=== PATIENT | male | born 1945 | race Caucasian/White ===

== ENCOUNTER 2019-12-23 08:55 | Outpatient (CLI) | payer MEDICARE, OTHER, SELFPAY ==
--- NOTE | ~2019-12-23 | CT_ITS ---
EXAMINATION: CT chest w con DATE: 12/23/2019 09:32 INDICATION: Non-small cell lung cancer TECHNIQUE: Transaxial computed tomographic images of the chest were obtained after the administration of 75 cc of Omnipaque 350 intravenous contrast. The dose-length product (DLP) was 351.92 mGy-cm. Ite rative reconstruction was used. COMPARISON: 08/12/2019, 05/27/2019 FINDINGS: There is moderate emphysema. There is a stable 2.0 x 0.8 cm right upper lobe nodule. A stab le 10 mm nodule is present in the medial aspect of the left upper lobe on image 34. There has been in terval enlargement of three left lower lobe nodules. For instance a 7 mm subpleural nodule in the med ial aspect of the left lower lobe previously measured 4 mm. There is a new 11 mm nodule of the left l ower lobe on image 60. A new 8 mm subpleural nodule of the right lower lobe on image 69 appears to de monstrate central cavitation. There is a 2.8 x 2.4 cm pleural-based nodule of the medial right lower lobe which is increased in size and appears to involve the right hemidiaphragm (image 112). A left barbosa bclavian Port-A-Cath ends with its tip at the distal superior vena cava. The heart size is normal. Th e heart size is normal. Mild mediastinal and bilateral hilar lymphadenopathy is stable. There are jett nges of coronary artery bypass grafting. The gallbladder is surgically absent. There is mild thoracic spondylosis. IMPRESSION: 1. Progression of metastatic disease as evidenced by new and enlarging bilateral pulmonary nodules. 2. Stable right upper lobe nodule, consistent with primary bronchogenic carcinoma. Reviewed, dictated and finalized at location A. IMPRESSION: 1. Progression of metastatic disease as evidenced by new and enlarging bilatera l pulmonary nodules. 2. Stable right upper lobe nodule, consistent with primary bronchogenic carcino ma.
[2019-12-23 09:24] LABS: Estimated Glomerular Filt Rate > 60
== END 2019-12-23 08:56 | disposition home or self-care (01) ==
PROVIDERS: PCP Internal Medicine; Visit Provider Internal Medicine Hematology & Oncology
DX: C34.90 Malignant neoplasm of unspecified part of unspecified bronchus or lung (principal)
CPT/HCPCS: 36415; 71260; Q9967

== ENCOUNTER 2020-01-02 07:28 | Outpatient (CLI) | payer MEDICARE, OTHER, SELFPAY ==
--- NOTE | ~2020-01-02 | PE_ITS ---
EXAMINATION: PET skull to mid thigh DATE: 01/02/2020 10:04 INDICATION: Malignant lung neoplasm of the right upper lobe. TECHNIQUE: Blood glucose level was 116 mg/dL. 116 mCi of 18-fluorodeoxyglucose (18-FDG) was administe red i.v. Low dose computed tomography (CT) images were acquired from the base of the brain to the pro ximal thighs for attenuation correction and anatomic localization. Positron emission tomography (PET) images were acquired in the same distribution beginning 71 minutes after injection. Images including fused PET/CT images were reconstructed in axial, coronal, and sagittal planes. Automated exposure co ntrol technique was employed. The dose-length product was 975.03mGy-cm. COMPARISON: Chest CT dated 12/23/2019 and PET/CT dated 04/26/2018 FINDINGS: Head/neck: There is symmetric increased activity in the pterygoid laryngeal muscles without CT correlate, likely physiologic. No pathologically enlarged cervical lymphadenopathy or suspicious foci of increased FDG uptake in the visualized head or neck. Chest: Left subclavian central venous port catheter with distal tip at the high right atrium. Postoperative change of prior median sternotomy and coronary artery bypass grafting. 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 Heart siz e is normal. No pericardial effusion. Moderate emphysema. No interval change in size or configuration of an irregular 2.0 x 0.9 cm mass with spiculated margins at the posterolateral periphery of the rig ht upper lobe consistent with treated primary bronchogenic carcinoma. There is no significant FDG upt yoshi associated with the nodule although there is mild nonfocal increased FDG uptake along the overlyi ng pleura which demonstrates chronic mild thickening which may be related to prior radiation treatmen t. 2.5 x 2.8 cm FDG avid mass at the right azygos esophageal recess which appears to invade the diaphrag m with maximal SUV of 5.5. There are few smaller bilateral FDG avid nodules are new since the prior s tudy. The largest is a 1.2 cm FDG avid nodule in the superior segment of the left lower lobe with max imal SUV of 2.4. Additional 9 mm pleural-based nodule in the left lower lobe with maximal SUV of 1.1 and 10 mm Mixed solid and cavitary nodule in the right lower lobe with maximal SUV of 3.3. Interval decrease in the degree of now minimal increased FDG uptake associated with still normal-sized mediastinal and bi lateral hilar lymph nodes. At the thoracic hiatus there is a new 2.4 x 1.1 cm right retrocrural lymph node with maximal SUV of 3.7. Abdomen/pelvis/proximal thighs: Cholecystectomy clips the gallbladder fossa. Physiologic renal accumulation and excretion of FDG acti vity in the kidneys, bladder and along portions of ureters. Hepatic and splenic calcified consistent with old granulomatous disease. Normal degree and heterogenous pattern of increased uptake throughout the liver without radiologic correlate or dominant FDG avid lesion. The pancreas, spleen and bilater al adrenal glands are normal. Mild uptake scattered throughout the bowels without radiologic correlat e, also likely physiologic. No other abnormal foci of increased FDG uptake or pathologically enlarged lymphadenopathy in the abdomen, pelvis or proximal thighs. Musculoskeletal: There is diffuse mild increased muscular activity throughout the left upper extremity most prominent at the left hand without radiologic correlate and likely physiologic. No suspicious lytic, blastic or FDG avid bone lesions. IMPRESSION: 1. FDG avid nodules at the bilateral lower lobes. Largest measuring 2.5 x 2.8 cm the right azygos eso phageal recess which appears to invade the diaphragm concerning for metastatic disease. 2. Mild FDG uptake with a new 2.4 x 1.1 cm right retrocrural lymph node which is also likely metastat ic.
[2020-01-02 07:55] LABS: Glucose Point of Care 116 (65-105)
== END 2020-01-02 07:29 | disposition home or self-care (01) ==
PROVIDERS: PCP Internal Medicine; Visit Provider Internal Medicine Hematology & Oncology
DX: C34.11 Malignant neoplasm of upper lobe, right bronchus or lung (principal); R59.0 Localized enlarged lymph nodes
CPT/HCPCS: 78815; A9552

== ENCOUNTER 2020-05-04 08:56 | Outpatient (CLI) | payer MEDICARE, OTHER, SELFPAY ==
--- NOTE | ~2020-05-04 | CT_ITS ---
EXAMINATION: CT chest w con DATE: 05/04/2020 09:38 INDICATION: Non-small cell right upper lobe lung cancer; restaging TECHNIQUE: Computed tomography (CT) of the chest was performed with 75 cc Omnipaque 350 intravenous c ontrast. Automated exposure control and iterative reconstruction technique were employed. Exam dose: 312.90 mGy-cm total exam DLP. COMPARISON: 01/02/2020 PET/CT scan 05/27/2019 CT chest FINDINGS: Since 05/19/2019 there is patchy soft tissue density in the lower aspect of the lingula and anterior and lateral basilar left lower lobe. COPD. Stable discoid scarring posterolateral right upper lung.. There is stable scarring in the anterior le ft upper lobe and another area of stable scarring in the anteromedial lingula. No interval pulmonary mass lesion is evident otherwise. No interval hilar or mediastinal mass lesion or lymphadenopathy. Normal heart size. No pericardial or pleural effusion. Normal morphology of the adrenal glands. Status post cholecystectomy. Status post sternotomy. 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 Mild chronic anterior wedge compression fracture deformity of L1. IMPRESSION: New patchy infiltrate at base of the lingula and left lower lobe COPD Chronic bilateral upper lobe and lingular scarring Reviewed, dictated and finalized at [facility]. Reviewed, dictated and finalized at location A.
[2020-05-04 09:42] LABS: Estimated Glomerular Filt Rate > 60
== END 2020-05-04 08:57 | disposition home or self-care (01) ==
PROVIDERS: PCP Internal Medicine; Visit Provider Internal Medicine Hematology & Oncology
DX: C34.91 Malignant neoplasm of unspecified part of right bronchus or lung (principal); R91.8 Other nonspecific abnormal finding of lung field; J44.9 Chronic obstructive pulmonary disease, unspecified
CPT/HCPCS: 71260; Q9967

== ENCOUNTER 2020-06-20 10:51 | Outpatient (CLI) | payer MEDICARE, OTHER, SELFPAY ==
--- NOTE | ~2020-06-20 | XR_ITS ---
XR chest 2V 06/20/2020 11:12 Indication: Non-small cell carcinoma of the right lung Procedure: PA and lateral views of the chest Comparison: 12/31/2017 Findings: There is residual scarring of the right upper lobe with near complete resolution of right u pper lobe mass since prior study. Portacatheter tip in the SVC. Heart size normal. The lungs are hype rinflated which is consistent with, but not diagnostic of chronic obstructive pulmonary disease. Ther e is chronic left basilar atelectasis/scarring. No focal air space disease, pulmonary edema, pleural effusion or suspected pneumothorax. Impression: 1: No acute cardiopulmonary disease. 2: Near complete resolution of right upper lobe mass with residual scarring. Reviewed, dictated and finalized at location B. Impression: 1: No acute cardiopulmonary disease. 2: Near complete resolution of right upper lobe mass with residual scarring.
== END 2020-06-20 10:52 | disposition home or self-care (01) ==
PROVIDERS: PCP Internal Medicine; Visit Provider Nurse Practitioner Adult Health
DX: C34.91 Malignant neoplasm of unspecified part of right bronchus or lung (principal)
CPT/HCPCS: 71046

== ENCOUNTER 2020-08-17 09:15 | Outpatient (CLI) | payer MEDICARE, SELFPAY ==
--- NOTE | ~2020-08-17 | CT_ITS ---
EXAMINATION: CT chest w con EXAM DATE: 08/17/2020 10:06 INDICATION: Non-small cell lung cancer, right side. TECHNIQUE: Spiral CT of the chest following intravenous injection of 75 mL Omnipaque 350. Axial, cor onal and sagittal images were reviewed. Coronal maximum intensity pixel images of chest reviewed. T he dose-length product (DLP) for this examination was 325.25 mGy-cm. The exposure was tailored accor ding to patient size (auto mA exposure control), and iterative reconstruction (ASIR) was used as percy tional dose reduction technique. Comparison is made to prior examination from 05/04/2020. FINDINGS: There is a left-sided Chemo-Port. Stable appearance to ill-defined soft tissue insinuating within the both anna, probably treated malignancy. Subcarinal lymph node or nodes with calcification s measuring 3.5 x 1.2 cm unchanged. No other enlarged mediastinal lymph nodes. There is moderate to s evere emphysema. Right upper lobe opacity consistent with scarring is unchanged. Previously seen ling ular pneumonia has resolved with subsegmental atelectasis remaining. There is developing soft tissue mass with heterogeneous low density which appears to be involving the right hemidiaphragm, right crux and right lower lobe posteromedial segment, measuring 3.2 cm in diam eter. Another right lower lobe nodule just above the diaphragm measuring 1.9 x 1.2 cm. Spiculated lef t lower lobe nodules measuring 2.0 x 1.4 cm and 1.8 x 1.0 cm. Several other new subcentimeter bilater al pulmonary nodules. Interval development of left liver lobe metastatic lesion measuring 2.0 cm. Cholecystectomy clips. Th ere are no pleural or pericardial effusions. Tracheobronchial tree is patent. There is no pneumot horax. Heart normal in size. There is mild coronary arterial calcification, arterial sclerosis. There is thoracic spondylosis without osteoblastic or osteolytic lesions identified. IMPRESSION: 1. Stable mediastinal, hilar findings consistent with treated malignancy. 2. Development of several bilateral metastatic pulmonary nodules, a right crux centered metastatic l esion, and left liver lobe metastatic lesion. Reviewed, dictated and finalized at location A. 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 Stable mediastinal, hilar findings consistent with treated malignancy. 2. Development of several bilateral metastatic pulmonary nodules, a right crux centered metastatic lesion, and left liver lobe metastatic lesion.
[2020-08-17 09:56] LABS: Estimated Glomerular Filt Rate 59
== END 2020-08-17 09:16 | disposition home or self-care (01) ==
PROVIDERS: PCP Internal Medicine; Visit Provider Internal Medicine Hematology & Oncology
DX: C34.91 Malignant neoplasm of unspecified part of right bronchus or lung (principal); C78.7 Secondary malignant neoplasm of liver and intrahepatic bile duct; C78.02 Secondary malignant neoplasm of left lung; C78.01 Secondary malignant neoplasm of right lung
CPT/HCPCS: 71260; Q9967

== ENCOUNTER 2020-08-29 07:20 | Outpatient (CLI) | payer MEDICARE, SELFPAY ==
--- NOTE | ~2020-08-29 | PE_ITS ---
EXAMINATION: PET skull to mid thigh DATE: 08/29/2020 09:41 INDICATION: Malignant neoplasm of the right upper lobe of the lung TECHNIQUE: Blood glucose level was 92 mg/dL. 11.08 mCi of 18-fluorodeoxyglucose (18-FDG) was administ ered i.v. Low dose computed tomography (CT) images were acquired from the base of the brain to the pr oximal thighs for attenuation correction and anatomic localization. Positron emission tomography (PET ) images were acquired in the same distribution beginning 59 minutes after injection. The dose-length product (DLP) was 826.41 mGy-cm. COMPARISON: 08/17/2020, 01/02/2020 FINDINGS: Head/neck: FDG uptake in the vocal cords and oral cavity without suspicious CT correlate is likely ph ysiologic. No abnormal FDG uptake is identified. Chest: There is severe emphysema. There are several pulmonary nodules which are new or enlarging sinc e the comparison PET/CT and demonstrate abnormal FDG uptake. For instance a 1.6 cm nodule of the left lower lobe demonstrates FDG uptake with an SUV max of 4.8. A 1.9 cm nodule along the medial surface of the right lower lobe demonstrates an SUV max of 5.9. A 3.4 cm mass of the medial right lower lobe has enlarged and invades the right hemidiaphragm. This demonstrates abnormal FDG uptake with an SUV m ax of 10.2. There is bilateral hilar and subcarinal lymphadenopathy with abnormal FDG uptake. A 1.2 x 0.4 cm pleural-based nodule of the right upper lobe demonstrates abnormal FDG uptake with an SUV max of 4.1. There is no pleural effusion or pneumothorax. Areas of scarring without associated FDG uptak e are present in the upper lobes. The heart size is normal. Abdomen/pelvis/proximal thighs: There is a 2.5 cm mass in liver segment II with abnormal FDG uptake a nd SUV max of 11.8. The gallbladder is surgically absent. The spleen, pancreas, and adrenal glands ar e normal. The kidneys are unremarkable. Physiologic FDG activity is present in the bowel and urinary tract. No pathologically enlarged abdominal or pelvic lymph nodes are identified. There is calcified atherosclerosis of the aorta and many of the other arteries. There is no free intraperitoneal gas or evidence of bowel obstruction. Musculoskeletal: No abnormal FDG uptake is identified. IMPRESSION: 1. Progression of disease as evidenced by enlarging right lower lobe mass invading the right hemidiap hragm, multiple enlarging lung nodules with abnormal FDG uptake, new liver mass with FDG uptake, bila teral hilar and subcarinal lymphadenopathy. Reviewed, dictated and finalized at location A. 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 Progression of disease as evidenced by enlarging right lower lobe mass invad ing the right hemidiaphragm, multiple enlarging lung nodules with abnormal FDG uptake, new liver mass with FDG uptake, bilateral hilar and subcarinal lymphade nopathy.
[2020-08-29 07:58] LABS: Glucose Point of Care 92 (65-105)
== END 2020-08-29 07:21 | disposition home or self-care (01) ==
LOC: ANHIMG 07:24
PROVIDERS: PCP Internal Medicine; Visit Provider Internal Medicine Hematology & Oncology
DX: C34.11 Malignant neoplasm of upper lobe, right bronchus or lung (principal)
CPT/HCPCS: 78815; A9552

== ENCOUNTER 2020-10-19 07:19 | Emergency (ER) | payer MEDICARE, SELFPAY ==
[2020-10-19] VITALS (10 sets, daily range): BP systolic 106–147; BP diastolic 61–85; PULSE 89–107; RESP 20–23; TEMP 36.1; O2SAT 88–100
--- NOTE | ~2020-10-19 | XR_ITS ---
EXAMINATION: XR chest 2V DATE: 10/19/2020 08:12 INDICATION: Shortness of breath TECHNIQUE: PA and lateral views of the chest are obtained. COMPARISON: 08/17/2020, 06/20/2020 FINDINGS: There are bilateral perihilar and midlung zone opacities. Minimal bibasilar opacities are a lso present. There are small pleural effusions. No pneumothorax is identified. A left subclavian Port -A-Cath ends with its tip in the distal superior vena cava. Median sternotomy wires and mediastinal s urgical clips are seen, likely from prior coronary artery bypass grafting. There is mild thoracic spo ndylosis. IMPRESSION: 1. Perihilar and bibasilar opacities, consistent with pneumonia and/or pulmonary edema and/or atelect asis. 2. Small pleural effusions. Reviewed, dictated and finalized at location A. SUPERVISOR GROUNDS AND LANDSCAPE IMPRESSION: 1. Perihilar and bibasilar opacities, consistent with pneumonia and/or pulmonar y edema and/or atelectasis. 2. Small pleural effusions.
--- NOTE | ~2020-10-19 | CT_ITS ---
EXAMINATION: CTA chest PE protocol DATE: 10/19/2020 10:25 INDICATION: Shortness of breath TECHNIQUE: Computed tomography angiography (CTA) of the chest was performed with 100 mL Omnipaque-350 intravenous contrast timed to evaluate the pulmonary arteries. Coronal maximum intensity projection 3D-reconstructions were created by the technologist. The dose-length product (DLP) was 454.73 mGy-cm. Automated exposure control and iterative reconstruction technique were employed. COMPARISON: 08/17/2020 FINDINGS: The pulmonary arteries are well-opacified. No pulmonary embolism is identified. There are s mall pleural effusions, left greater than right. There is severe emphysema. There are unchanged mike ediastinal reticular opacities in the left upper lobe. There are airspace opacities of the lung bases and lingula. There are multiple bilateral pulmonary nodules which are new or increased in size since the comparison examination. For instance, a 9 mm nodule of the left lower lobe on image 72 previousl y measured 7 mm. There is unchanged bilateral hilar and subcarinal lymphadenopathy. The right lower l obe mass involving the hemidiaphragm has increased in size. The left hepatic lobe mass has slightly d ecreased in size. The heart size is normal. There are changes of coronary artery bypass grafting. IMPRESSION: 1. No pulmonary embolism. 2. Overall progression of metastatic disease as evidenced by enlarging pulmonary nodules and enlargin g right lower lobe mass involving the hemidiaphragm. Reviewed, dictated and finalized at location A. SAWYER IMPRESSION: 1. No pulmonary embolism. 2. Overall progression of metastatic disease as evidenced by enlarging pulmonar y nodules and enlarging right lower lobe mass involving the hemidiaphragm.
--- NOTE | 2020-10-19 07:29 | ECG_ITS ---
Measurements Intervals [place] Rate: 96 P: 76 RI: 118 QRS: 67 QRSD: 77 T: 90 QT: 356 QTc: 451 Interpretive Statements SINUS RHYTHM WITH SHORT RI INTERVAL NONSPECIFIC ST & T-WAVE ABNORMALITY- DIFFUSE LEADS BASELINE WANDER- I, II, V3-V6 BORDERLINE ECG Electronically Signed On 10-19-2020 8:05:08 ENVIRONMENTAL HEALTH AND SAFETY LEADER by Avinash Worthy D.O.
--- NOTE | 2020-10-19 07:31 | ED.SOB ---
HPI - SOB/Dyspnea General Chief Complaint: Shortness of Breath/Dyspnea Stated Complaint: I have a hard time breathing Time Seen by Provider: 10/19/20 07:22 Source: patient, RN notes reviewed and old records reviewed History of Present Illness HPI Narrative: 75-year-old male presents to emergency department for shortness of breath for the past week. Patient states he has had this in the past before, unknown cause. He has not taken anything for his breathing so far. Patient does report recent weight gain. No fever or chills. No runny or congested nose. No chest pain. No abdominal pain. No nausea or vomiting. Patient states he has been smoking cigarettes since he is 13 years old. He also has lung cancer. Patient does not wear oxygen at home. Related Data Home Medications Medication Instructions Recorded Confirmed aspirin [Aspir-81] 81 mg PO DAILY 06/16/19 10/11/20 atorvastatin 80 mg PO HS 06/16/19 10/11/20 furosemide 40 mg PO DAILY 06/16/19 10/11/20 glimepiride 1 mg PO HS 06/16/19 10/11/20 lisinopril 5 mg PO DAILY 06/16/19 10/11/20 metformin 1,000 mg PO BID 06/16/19 10/11/20 metoprolol tartrate 25 mg PO DAILY 06/16/19 10/11/20 nitroglycerin 0.4 mg SUBLINGUAL DIRECTED PRN 06/16/19 10/11/20 potassium chloride 20 meq PO BID 06/16/19 10/11/20 trazodone 100 mg PO HS 06/16/19 10/11/20 ferrous sulfate 325 mg PO DAILY 04/11/20 10/11/20 magnesium oxide 500 mg PO DAILY 04/11/20 10/11/20 Allergies Allergy/AdvReac Type Severity Reaction Status Date / Time No Known Allergies Allergy Verified 10/11/20 12:02 Review of Systems Review of Systems: Narrative: CONSTITUTIONAL: Denies fever, chills, or sweats. EYES: Denies visual changes, redness, or discharge. ENT: Denies rhinorrhea, congestion, sore throat, or otalgia. CARDIOVASCULAR: Denies chest pain, palpitations. Reports leg edema RESPIRATORY: Shortness of breath GASTROINTESTINAL: Denies abdominal pain, nausea, vomiting, or diarrhea. GENITOURINARY: Denies dysuria or hematuria. SKIN: Denies rash or itching. MUSCULOSKELETAL: Denies back pain, joint pain, or myalgia. NEUROLOGIC: Denies headache, numbness, dizziness, or weakness. PSYCHIATRIC: Denies anxiety or depression. All systems reviewed & are unremarkable except as noted in HPI and below (ROS) [facility] Family History Family History Father Hypertension Sibling Hypertension Social History Social History Smoking status: Smoker, status unknown Alcohol intake: never Exam Narrative: Exam Narrative: GENERAL: Well-appearing, well-nourished, and in no acute distress. HEAD: Normocephalic, atraumatic. EYES: PERRLA and EOMI. ENT: Nares clear, no rhinorrhea or epistaxis. Mucous membranes moist. NECK: Supple. CHEST: Decreased breath sounds bilaterally HEART: Regular rate and rhythm. No murmur heard. Normal peripheral pulses. ABDOMEN: Soft, nontender, nondistended, normal active bowel sounds. EXTREMITIES: Normal range of motion. 1+ pitting edema lower extremities bilaterally SKIN: Warm, dry, no rash. NEURO: No focal deficits. Alert and oriented x3. PSYCH: Normal mood and affect. Course Course Emergency Course: 8:40AM - re-evaluated pt, breathing improved after breathing tx and oxygen 10:00AM -patient has had a good amount of urine output after Lasix. Feels better after Lasix administration. 11:05AM -reevaluated patient, no new complaints. Would like to keep patient in the hospital for further diuresis. Patient declined stating he would like to go home. Offered multiple times to keep patient in the hospital. Patient states he even discussed with his , and would like to go home. Counseled patient to return to emergency department at any time if he changes his mind, or shortness of breath persist, worsen, or other concerns. Vital Signs Vital signs: Vital Signs Temperature 36.1 C L 10/19/20 07:25 Pulse Ra
[2020-10-19] MEDS: IPRATROPIUM BR 0.02% INH SOLN 0.5 MG/2.5 ML VIAL INHALATION (07:50)
[2020-10-19] MEDS: ALBUTEROL SULFATE NEB 2.5 MG/0.5 ML INH 5 MG INHALATION (07:51)
[2020-10-19] MEDS: methylPREDNISolone SOD SUCC 125 MG VIAL 80 MG IV PUSH (07:56)
[2020-10-19 08:10] LABS: Basophils Percent Auto 0.9 % (0.2-1.2); Eosinophils Absolute Auto 0.2 K/mm3 (0-0.3); Eosinophils Percent Auto 9.3 % (0-4.4); Hematocrit 31.1 % (42.0-52.0); Immature Granulocyte Absolute 0.01 K/mm3 (0.00-0.031); Immature Granulocyte Percent A 0.4 % (0-0.5); Immature Platelet Fraction Pct 8.7 % (0.9-11.2); Lymphocytes Absolute Auto 0.63 K/mm3 (0.9-3.2); Mean Corpuscular HGB Conc 32.2 g/dl (32-36); Mean Corpuscular Hemoglobin 29.2 pg (26-34); Mean Corpuscular Volume 90.9 fl (80-100); Mean Platelet Volume 11.4 fl (7.4-10.4); Monocytes Absolute Auto 0.5 K/mm3 (0.1-0.6); Monocytes Percent Auto 21.8 % (2.6-8.5); Neutrophils Absolute Auto 0.9 K/mm3 (1.3-6.7); Neutrophils Percent Auto 39.6 % (45.5-73.1); Platelet Count Result 124 k/mm3 (150-375); Red Blood Count 3.42 M/mm3 (4.6-6.20); Red Cell Distribution Width 15.8 % (11.5-14.5); White Blood Count 2.3 K/mm3 (4.5-10.0)
[2020-10-19 08:20] LABS: Alanine Aminotransferase 19 U/L (4-50); Alkaline Phosphatase 79 U/L (38-126); Anion Gap 2 mmol/L (8-16); Aspartate Amino Transferase 22 U/L (17-59); Bilirubin,Total 0.3 mg/dL (0.2-1.3); Blood Urea Nitrogen 18 mg/dL (9-20); Calcium 8.4 mg/dL (8.4-10.2); Carbon Dioxide 32 mmol/L (22-30); Chloride 107 mmol/L (98-107); Estimated CRCL calculation 71 ml/min; Estimated Glomerular Filt Rate > 60; Glucose 140 mg/dL (75-110); Potassium 3.6 mmol/L (3.4-5.0); Sodium 141 mmol/L (137-145)
[2020-10-19] MEDS: FUROSEMIDE INJ 40 MG/4 ML VIAL 60 MG IV PUSH (08:24)
[2020-10-19 08:36] LABS: NT Pro B Type Natriuretic Pept 912 PG/ML (5-100); Troponin I 0.494 ng/mL (0.000-0.034)
[2020-10-19 08:46] LABS: D Dimer 0.74 ug/mL (<0.48)
[2020-10-19] MEDS: HEPARIN SOD FLUSH 500 UNITS/5 ML SYRINGE (11:49)
== END 2020-10-19 11:58 | disposition left against medical advice (07) ==
PROVIDERS: Emergency Provider Emergency Medicine; PCP Internal Medicine
DX: I50.9 Heart failure, unspecified (principal); R09.02 Hypoxemia; R94.31 Abnormal electrocardiogram [ECG] [EKG]; F17.210 Nicotine dependence, cigarettes, uncomplicated; C34.90 Malignant neoplasm of unspecified part of unspecified bronchus or lung; Z79.82 Long term (current) use of aspirin; Z79.84 Long term (current) use of oral hypoglycemic drugs; R91.8 Other nonspecific abnormal finding of lung field
CPT/HCPCS: 36415; 71046; 71275; 80053; 83605; 83880; 84484; 85025; 85055; 85380; 87040; 93005; 94640; 96365; 96366; 96367; 96375; 99284; J0692; J1940; J2930; J3370; Q9967

== ENCOUNTER 2020-11-22 08:14 | Inpatient (IN) | payer MEDICARE, SELFPAY ==
[2020-11-22] VITALS (39 sets, daily range): BP systolic 108–136; BP diastolic 45–84; PULSE 83–117; RESP 13–44; TEMP 36–36.9; O2SAT 87–100; BMI 30.8
--- NOTE | ~2020-11-22 | CT_ITS ---
EXAMINATION: CTA chest PE protocol DATE: 11/22/2020 10:03 INDICATION: Shortness of breath. Chest pain. Chronic productive cough. TECHNIQUE: Computed tomography angiography (CTA) of the chest was performed with 100 mL Omnipaque-350 intravenous contrast timed to evaluate the pulmonary arteries. Coronal maximum intensity projection 3D-reconstructions were created by the technologist. Automated exposure control and iterative reconst ruction technique were employed. Exam dose: 593.95 mGy-cm total exam DLP. COMPARISON: 11/22/2020 portable AP chest 10/19/2020 CT pulmonary scan FINDINGS: There is diagnostic contrast enhancement of the pulmonary arteries and no evidence of pulmo nary embolism. Left Port-A-Cath catheter. Status post sternotomy/coronary bypass graft surgery. There is extensive thoracic aortic as well as great vessel arterial calcification in addition to prom inent coronary artery calcifications. Normal heart size. No pericardial or left pleural effusion; slight right pleural effusion. Emphysematous changes of the lungs. Again noted is a posteromedial right basilar soft tissue mass invading and thickening of the right di aphragm. There is subcarinal adenopathy and calcification. There is substantially increased right per ihilar soft tissue thickening, extending into the right suprahilar area and particularly in the poste romedial right upper lobe. Differential diagnosis includes postoperative radiation pneumonitis, pneum onia, less likely malignancy. Occasional bilateral pulmonary masses consistent with metastatic disease, relatively stable since 10/01. Stable posterolateral right upper lobe scarring. Normal morphology of the adrenal glands. Status post cholecystectomy. Approximately 1.8 cm anterior lateral segment left hepatic 11 defined area of diminished attenuation. Approximately 1.2 cm ill-defined area of diminished attenuation of the medial segment of the left he patic lobe. Hepatic metastatic disease was confirmed on 08/18/2021 PET/CT scan. No suspicious osteolytic or osteoblastic lesions. There is mild anterior wedge compression fracture d eformity of L1. IMPRESSION: No evidence of pulmonary embolism Interval prominent consolidation/opacification in the right suprahilar area extending into the machine try out setter omedial right upper lobe; differential diagnosis includes pneumonia, postoperative radiation pneumoni tis, most likely malignancy Persistent posteromedial right lower lobe mass invading diaphragm and scattered bilateral pulmonary m etastases, hepatic metastasis Emphysema Reviewed, dictated and finalized at [facility]. Reviewed, dictated and finalized at [facility]. IMPRESSION: No evidence of pulmonary embolism Interval prominent consolidation/opacification in the right suprahilar area ext ending into the posteromedial right upper lobe; differential diagnosis includes pneumonia, postoperative radiation pneumonitis, most likely malignancy Persistent posteromedial right lower lobe mass invading diaphragm and scattered bilateral pulmonary metastases, hepatic metastasis Emphysema
--- NOTE | ~2020-11-22 | XR_ITS ---
XR chest 1V portable DATE: 11/22/2020 08:44 INDICATION: Cough and shortness of breath for one day TECHNIQUE: Portable AP view on 11/22/2020 at 0845 hours COMPARISON: October 19, [address] pulmonary scan FINDINGS: There is improvement of the small pleural effusions since October 19, 2020. There is dimin ished infiltrate or atelectasis in the mid and lower lung zones. Status post sternotomy. Normal heart size. Left Port-A-Cath catheter tip is situated near the superio r cavoatrial junction. IMPRESSION: Diminished infiltrates and pleural effusions since 10/19/2020 Reviewed, dictated and finalized at [facility].
--- NOTE | 2020-11-22 08:31 | ED.SOB ---
HPI - SOB/Dyspnea General Chief Complaint: Shortness of Breath/Dyspnea Stated Complaint: diff breathing Time Seen by Provider: 11/22/20 08:20 Source: RN notes reviewed History of Present Illness HPI Narrative: Patient presents emergency department from home for shortness of breath. Patient states that symptoms have been worsening over the past 2 days with worsening shortness of breath this morning he states it is associated with wheezing. Patient states he has a history of COPD as well as a history of lung cancer for which she is currently being followed by Dr. Dc and currently receiving chemo with last chemo 2 weeks ago he denies any fevers or chills chest pain abdominal pain nausea vomiting or any other symptoms denies use of any oxygen at home Related Data Home Medications Medication Instructions Recorded Confirmed aspirin [Aspir-81] 81 mg PO DAILY 06/16/19 11/08/20 atorvastatin 80 mg PO HS 06/16/19 11/08/20 furosemide 40 mg PO DAILY 06/16/19 11/08/20 glimepiride 1 mg PO HS 06/16/19 11/08/20 lisinopril 5 mg PO DAILY 06/16/19 11/08/20 metformin 1,000 mg PO BID 06/16/19 11/08/20 metoprolol tartrate 25 mg PO DAILY 06/16/19 11/08/20 nitroglycerin 0.4 mg SUBLINGUAL DIRECTED PRN 06/16/19 11/08/20 potassium chloride 20 meq PO BID 06/16/19 11/08/20 trazodone 100 mg PO HS 06/16/19 11/08/20 ferrous sulfate 325 mg PO DAILY 04/11/20 11/08/20 magnesium oxide 500 mg PO DAILY 04/11/20 11/08/20 Allergies Allergy/AdvReac Type Severity Reaction Status Date / Time No Known Allergies Allergy Verified 11/22/20 08:34 Review of Systems Review of Systems: Narrative: Gen.: Denies fevers or chills ENT: Denies congestion Respiratory: See HPI CV: Denies chest pain or palpitations GI: Denies abdominal pain nausea, emesis or diarrhea Musculoskeletal: Denies back pain or muscle pain Neuro: Denies numbness, tingling, weakness or focal weakness Skin: Denies rash Except as documented, all other systems reviewed and negative PMFSH Past Medical History Medical History (Updated 03/26/21 @ 12:39 by Doug Hernandez DO) Non-small cell cancer of right lung Family History Family History Father Hypertension Sibling Hypertension Social History Social History (Updated 11/22/20 @ 08:32 by Doug Hernandez DO) Smoking status: Current every day smoker Alcohol intake: never Gender identity (if verbalized by the patient): Male Exam Narrative: Exam Narrative: APPEARANCE: Mild respiratory distress nontoxic, resting in bed HEENT: Normocephalic, atraumatic OMM RESPIRATORY: Mild respiratory stress wheezing throughout the bilateral lung arias with decreased breath sounds in the bases CARDIOVASCULAR: Regular rate and rhythm without murmurs rubs or gallops. ABDOMINAL: Soft, nontender, nondistended, no rebound or guarding MUSCULOSKELETAl: Moves all extremities. No clubbing, cyanosis or edema. Bilateral calves soft and nontender NEURO: Awake and alert. Following commands, speech normal, no focal deficits SKIN:: Warm, dry. Normal Color PSYCHIATRIC: Normal affect/mood, Course Course Emergency Course: Reviewed old records Following breathing treatment symptoms are improved decreased wheezing on auscultation Discussed with Dr. Allen presentation and work-up agrees with admission at this time Discussed with patient and family results of workup and diagnosis. Discussed need for admission. Patient and family understand and agree to current treatment plan Vital Signs Vital signs: Vital Signs Temperature 98.4 F 11/22/20 08:21 Pulse Rate 117 H 11/22/20 08:21 Respiratory Rate 32 H 11/22/20 08:21 Blood Pressure 123/84 11/22/20 08:21 Pulse Oximetry 88 L 11/22/20 08:21 Temperature 98.4 F 11/22/20 08:21 Pulse Rate 94 11/22/20 11:31 Respiratory Rate 37 H 11/22/20 11:30 Blood Pressure 118/51 L 11/22/20 11:31 Pulse Oximetry 94 11/22/20 11:31 MDM - SOB/
[2020-11-22] MEDS: methylPREDNISolone SOD SUCC 125 MG VIAL IV PUSH (08:42)
[2020-11-22 08:55] LABS: Basophils Absolute Auto 0.1 K/mm3 (0.0-0.1); Basophils Percent Auto 0.8 % (0.2-1.2); Eosinophils Percent Auto 0.2 % (0-4.4); Hematocrit 33.9 % (42.0-52.0); Hemoglobin 11.1 g/dL (14.0-18.0); Lymphocytes Absolute Auto 1.08 K/mm3 (0.9-3.2); Mean Corpuscular HGB Conc 32.7 g/dl (32-36); Mean Corpuscular Hemoglobin 29.6 pg (26-34); Mean Corpuscular Volume 90.4 fl (80-100); Mean Platelet Volume 11.2 fl (7.4-10.4); Monocytes Percent Auto 20.1 % (2.6-8.5); Neutrophils Absolute Auto 6.5 K/mm3 (1.3-6.7); Neutrophils Percent Auto 66.9 % (45.5-73.1); Platelet Count Result 151 k/mm3 (150-375); Red Blood Count 3.75 M/mm3 (4.6-6.20); Red Cell Distribution Width 15.6 % (11.5-14.5); White Blood Count 9.8 K/mm3 (4.5-10.0)
[2020-11-22 09:06] LABS: Partial Thromboplastin Time 41.7 SECONDS (22.3-36.8)
[2020-11-22 09:07] LABS: Alanine Aminotransferase 22 U/L (4-50); Albumin Level 3.5 g/dL (3.5-5.1); Alkaline Phosphatase 95 U/L (38-126); Anion Gap 8 mmol/L (8-16); Aspartate Amino Transferase 25 U/L (17-59); Bilirubin,Total 0.3 mg/dL (0.2-1.3); Blood Urea Nitrogen 23 mg/dL (9-20); Calcium 8.2 mg/dL (8.4-10.2); Carbon Dioxide 31 mmol/L (22-30); Chloride 97 mmol/L (98-107); Estimated CRCL calculation 53 ml/min; Estimated Glomerular Filt Rate 59; Glucose 252 mg/dL (75-110); Potassium 3.9 mmol/L (3.4-5.0); Sodium 136 mmol/L (137-145)
[2020-11-22 09:08] LABS: Lactic Acid Reflex 1.8 mmol/L (0.7-2.1)
--- NOTE | 2020-11-22 09:08 | ECG_ITS ---
Measurements Intervals [place] Rate: 118 P: 82 IA: 123 QRS: 62 QRSD: 75 T: 79 QT: 330 QTc: 463 Interpretive Statements SINUS TACHYCARDIA NONSPECIFIC ST & T-WAVE ABNORMALITY- ANTEROLAT/HIGH LAT LEADS BASELINE ARTIFACT- I, II, AVR, AVL ABNORMAL ECG Electronically Signed On 11-22-2020 9:10:23 CDT by Avinash Worthy D.O.
[2020-11-22 09:11] LABS: INR 1.1; Prothrombin Time 15.2 Seconds (11.1-14.7)
[2020-11-22 09:19] LABS: NT Pro B Type Natriuretic Pept 483 PG/ML (5-100); Troponin I < 0.012 ng/mL (0.000-0.034)
[2020-11-22] MEDS: ALBUTEROL SULFATE NEB 2.5 MG/0.5 ML INH 5 MG INHALATION ×3 (09:26→19:48)
[2020-11-22] MEDS: IPRATROPIUM BR 0.02% INH SOLN 0.5 MG/2.5 ML VIAL INHALATION ×3 (09:27→19:47)
[2020-11-22 09:32] LABS: Alveolar/Arterial O2 Gradient 65.9 mmHg; Base Excess ABG 2.3 mEq/l (+/-2.0); Fractional Inspired Oxygen 28 %; HCO3 ABG 26.4 mEq/l (22.0-26.0); Oxygen Content ABG 15.4 %vol (16.0-22.0); Oxyhemoglobin 95.2 % THb (90.0-100.0); PCO2 ABG 38.9 mmHg (35.0-45.0); PO2 ABG 87.8 mmHg (80.0-100.0); PO2 FiO2 Ratio Arterial Blood 3.14 %; Total Hemoglobin 11.4 g/dL (12.0-18.0); pH ABG 7.449 (7.350-7.450)
[2020-11-22 12:39] LABS: Device NASAL CANNULA; Modified Allen's Test Pass; Site Drawn LEFT RADIAL
--- NOTE | 2020-11-22 12:42 | PC.NURSE ---
floor nurse doing procedure. will call ed nurse back for phone report
--- NOTE | 2020-11-22 13:51 | ADMGEN ---
This patient, Hao Call, was admitted to Medical Room 348-. Patient/family oriented to hospital policies and general routines including ID bracelet, bed and alarms, visiting hours, pain management, procedures, bathroom and other care routines, personal items, smoking policy, room service/diet, and visiting hours. Information on how to activate the Rapid Response Team has been discussed. Patient/Family are encouraged to report perceived risks to care and to ask questions if they do not understand what they are told or what they should do.
--- NOTE | 2020-11-22 14:01 | PM.IMHP ---
H&P: HPI History of Present Illness Date/Time: 11/22/20 14:01 this is a 75-year-old male patient who has a history of stage IIIB non small cell lung cancer that has metastasized to the liver. The patient had been receiving radiation per Dr. smith which she completed this course and had concurrent chemotherapy between 01/03/2018 and 02/14/2018. The patient continues to have pain it is durvalumab in April 2018 and second-line chemotherapy with carboplatin, Abraxane, and Keytruda followed by Taxotere cryamza a since 09/13/2020. The patient does not wear oxygen at home. He also has a history of COPD. The patient has had increasing shortness of breath over the last 3 days. Last chemotherapy was 2 weeks ago. Radiology as no evidence of pulmonary embolism. Emphysema. Persistent posterior medial right lower lobe mass invading diaphragm and scattered bilateral pulmonary metastasis, hepatic metastasis. Chest x-ray was read as diminish infiltrates and pleural effusions since 10/19/2020., Atrovent nebulizer, albuterol nebulizer, azithromycin, and ceftriaxone. Patient is being admitted to inpatient status on the date of service of 11/22/2020. Chief Complaint: Shortness of breath Review of Systems Review of Systems: All systems reviewed & are unremarkable except as noted in HPI and below Constitutional: Constitutional: Reports as per HPI and Reports no additional constitutional complaints Eyes: Eyes: Reports as per HPI and Reports no additional eye complaints ENT: Reports system reviewed and no additional complaints, except as documented and Reports Normal hearing present Cardiovascular: Cardiovascular: Reports no additional cardiovascular complaints Respiratory: Respiratory: Reports no additional respiratory complaints and Reports no additional respiratory complaints Gastrointestinal: Gastrointestinal: Reports as per HPI and Reports no additional gastrointestinal complaints Musculoskeletal: Musculoskeletal: Reports no additional musculoskeletal complaints Integumentary/Breasts: Skin/Breast: Reports system reviewed and no additional complaints, except as docu and Reports as per HPI Neurologic: Reports system reviewed and no additional complaints, except as documented, Reports as per HPI and Reports Normal hearing present Psychiatric: Psychiatric: Reports no additional psychiatric complaints and Reports as per HPI Endocrine: Endocrine: Reports no additional endocrine complaints Hematologic/Lymphatic: Hematologic/Lymphatic: Reports no additional hematologic/lymphatic complaints Allergic/Immunologic: Allergic/Immunologic: Reports no additional allergic/immunologic complaints [facility] Past Medical History Medical History (Updated 11/22/20 @ 14:37 by Leelee Case NP) Anemia of chronic disease CAD (coronary artery disease) Congestive heart failure DM2 (diabetes mellitus, type 2) Hyperlipidemia Non-small cell cancer of right lung Surgical History Surgical History (Updated 11/22/20 @ 14:33 by Leelee Case NP) H/O four vessel coronary artery bypass graft H/O right knee surgery History of cataract extraction History of surgery on upper extremity Hx of cholecystectomy Family History Family History Father Hypertension Sibling Hypertension Diabetes mellitus Mother Cerebrovascular accident Social History Social History (Updated 11/22/20 @ 14:17 by Leelee Case NP) Social History: The patient is and his is the durable power divorce attorney for healthcare. The patient desires to be a full code. Patient has 3 biological children. The patient still continues to smoke at least 2 cigarettes a day. 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 Prior to that he worked in the [employer]. He also served in the . No alcohol or illicit drugs. Smoking status: Current every day smoker Tobacco type: cigarettes Alcohol intake
[2020-11-22] MEDS: methylPREDNISolone SOD SUCC 125 MG VIAL 60 MG IV PUSH ×2 (14:56→21:52)
[2020-11-22] MEDS: SODIUM CHLORIDE 0.9% IV 1,000 ML 100 ML IV CONT (14:56)
--- NOTE | 2020-11-22 16:11 | WPDONCPN ---
Progress Note: A/P (1) Lung cancer Code(s): C34.90 - Malignant neoplasm of unspecified part of unspecified bronchus or lung Status: Acute Assessment and plan: Patient admitted with COPD exacerbation vs pneumonia. Now in need of O2. CTA showed no PE, but there was interval prominent consolidation/opacification in the R suprahilar area extending into the posteromedial right upper lobe; differential diagnosis: pneumonia, post-operative RT pneumonitis, malignancy. Persistent posteromedial RLL mass invading the diaphragm and scattered BL pulmonary metastases, hepatic metastases. Emphysema. - Plan for home O2 assessment and discharge with oral antibiotic and steroid taper plan once clinically stable. - Pt will continue therapy with docetaxel and ramucirumab next Wednesday in oncology infusion center. - Please restart patient's home lasix if in the hospital over the weekend. - Time Spent With Patient Total time spent is greater than 50% in coordination of care (as documented) at patient's floor/unit and/or counseling patient: 15 - 25 minutes Subjective Interval history: This is a 75 y/o male with history of COPD/emphysema and metastatic NSCLC on systemic therapy with docetaxel and ramucirumab, given every 21 days and started on September 13. Last therapy was on 11/08. Patient followed by Dr. Dc and on steroids and lasix for chronic SOB. Not on O2 at home. Patient came in to ED reporting worsening SOB and dyspnea for the last 2 days, as well as productive cough with white sputum. Denies fevers, chills, night sweats or other symptoms. Has chronic cough from COPD. In ED, O2sat was 88% on RA. Pt placed on O2 NC. CTA showed no PE, but there was interval prominent consolidation/opacification in the R suprahilar area extending into the posteromedial right upper lobe; differential diagnosis: pneumonia, post-operative RT pneumonitis, malignancy. Persistent posteromedial RLL mass invading the diaphragm and scattered BL pulmonary metastases, hepatic metastases. Emphysema. Patient treated for CAP with ceftriaxone and azithromycin, as well as steroids for COPD. Review of Systems - Review of Systems All systems reviewed & are unremarkable except as noted in HPI and bel - Neurologic Reports system reviewed and no additional complaints, except as documented, Reports hearing normal Exam Vital signs: Temp Pulse Resp BP Pulse Ox 36.0 C L 105 H 20 108/66 92 11/22/20 14:00 11/22/20 15:19 11/22/20 15:19 11/22/20 14:00 11/22/20 15:09 - Constitutional no acute distress - Routine HEENT Exam ENT: Present: mucous membranes moist - Routine Respiratory Exam Present: decreased breath sounds, rales Comments: On O2 nasal canula, breathing comfortably - Routine Cardiovascular Exam Cardiovascular: Present: RRR - Routine Abdominal Exam Present: soft - Routine Extremities Exam Present: full ROM, pulses intact PN: Objective Data - Labs CBC & Chem 7: 11/24/20 05:30 11/24/20 05:30 Labs: Laboratory Results - last 24 hr 11/22/20 11/22/20 11/22/20 08:48 08:48 08:48 WBC 9.8 RBC 3.75 L Hgb 11.1 L Hct 33.9 L MCV 90.4 MCH 29.6 MCHC 32.7 RDW 15.6 H Plt Count 151 MPV 11.2 H Immature Gran % (Auto) 1.0 H Neut % (Auto) 66.9 Lymph % (Auto) 11.0 L [place] % (Auto) 20.1 H Eos % (Auto) 0.2 Baso % (Auto) 0.8 Lymph # (Auto) 1.08 [place] # (Auto) 2.0 H Eos # (Auto) 0.0 Baso # (Auto) 0.1 Abs Immat Gran (auto) 0.10 H Absolute Neuts (auto) 6.5 Absolute Nucleated RBC 0.0 Nucleated RBC % 0.0 PT 15.2 H INR 1.1 APTT 41.7 H Puncture Site ABG pH ABG pCO2 ABG pO2 ABG PO2/FiO2 Ratio ABG HCO3 ABG O2 Saturation ABG O2 Content ABG Base Excess A-a Gradient Oxyhemoglobin Total Hemoglobin O2 Delivery Device O2 Liters/Min FiO2 Sodium 136 L Potassium 3.9 Chloride 97 L Carbon Dioxide 31 H Anion Gap
[2020-11-22 16:33] LABS: Hemoglobin A1C 5.9 % (<5.7)
[2020-11-22 17:58] LABS: Glucose Point of Care 462 (65-105)
--- NOTE | 2020-11-22 18:05 | PC.NURSE ---
Medication list confirmed with patient and spouse.
[2020-11-22] MEDS: INSULIN ASPART (*BKC) 100 UNITS/ML 6 UNITS SUB-Q (18:16)
[2020-11-22] MEDS: ATORVASTATIN 40 MG TABLET 80 MG PO (21:52)
[2020-11-22] MEDS: traZODone HCL 50 MG TABLET 100 MG PO (21:52)
[2020-11-22] MEDS: GLIMEPIRIDE 1 MG TABLET PO (21:59)
[2020-11-22 22:05] LABS: Glucose Point of Care 373 (65-105)
[2020-11-22] MEDS: INSULIN ASPART (*BKC) 100 UNITS/ML 8 UNITS SUB-Q (22:25)
[2020-11-23] VITALS (14 sets, daily range): BP systolic 102–120; BP diastolic 52–67; PULSE 67–100; RESP 16–24; TEMP 36.1–36.6; O2SAT 89–96
[2020-11-23] MEDS: SODIUM CHLORIDE 0.9% IV 1,000 ML 100 ML IV CONT ×2 (01:26→17:10)
[2020-11-23] MEDS: IPRATROPIUM BR 0.02% INH SOLN 0.5 MG/2.5 ML VIAL INHALATION ×4 (02:31→19:52)
[2020-11-23] MEDS: ALBUTEROL SULFATE NEB 2.5 MG/0.5 ML INH 5 MG INHALATION ×4 (02:31→19:52)
[2020-11-23 02:44] LABS: Glucose Point of Care 233 (65-105)
[2020-11-23 05:38] LABS: Basophils Absolute Auto 0.1 K/mm3 (0.0-0.1); Basophils Percent Auto 0.4 % (0.2-1.2); Hematocrit 29.4 % (42.0-52.0); Hemoglobin 9.6 g/dL (14.0-18.0); Immature Granulocyte Absolute 0.11 K/mm3 (0.00-0.031); Immature Granulocyte Percent A 0.7 % (0-0.5); Lymphocytes Absolute Auto 0.61 K/mm3 (0.9-3.2); Lymphocytes Percent Auto 4.1 % (18.3-44.2); Mean Corpuscular HGB Conc 32.7 g/dl (32-36); Mean Corpuscular Hemoglobin 29.4 pg (26-34); Mean Corpuscular Volume 89.9 fl (80-100); Monocytes Absolute Auto 1.3 K/mm3 (0.1-0.6); Monocytes Percent Auto 8.7 % (2.6-8.5); Neutrophils Absolute Auto 12.9 K/mm3 (1.3-6.7); Neutrophils Percent Auto 86.1 % (45.5-73.1); Platelet Count Result 122 k/mm3 (150-375); Red Blood Count 3.27 M/mm3 (4.6-6.20); White Blood Count 14.9 K/mm3 (4.5-10.0)
[2020-11-23 05:54] LABS: Anion Gap 5 mmol/L (8-16); Blood Urea Nitrogen 22 mg/dL (9-20); Calcium 7.8 mg/dL (8.4-10.2); Carbon Dioxide 30 mmol/L (22-30); Chloride 101 mmol/L (98-107); Estimated CRCL calculation 63 ml/min; Estimated Glomerular Filt Rate > 60; Glucose 241 mg/dL (75-110); Potassium 3.3 mmol/L (3.4-5.0); Sodium 136 mmol/L (137-145)
[2020-11-23] MEDS: methylPREDNISolone SOD SUCC 125 MG VIAL 60 MG IV PUSH ×3 (05:59→21:54)
[2020-11-23 06:11] LABS: Hypochromasia 1+ (NORMAL); Ovalocytes 2+ (NORMAL)
[2020-11-23] MEDS: INSULIN ASPART (*BKC) 100 UNITS/ML SUB-Q ×3 (07:47→17:05)
--- NOTE | 2020-11-23 07:52 | PC.NURSE ---
Patient refuses fall precautions. Reinstructed fall precautions. Refuses bed alarm.
[2020-11-23 08:17] LABS: Glucose Point of Care 221 (65-105)
[2020-11-23] MEDS: ASPIRIN 81 MG ENTERIC TABLET PO (08:17)
[2020-11-23] MEDS: FERROUS SULFATE 324 MG TABLET PO (08:17)
[2020-11-23] MEDS: POTASSIUM CHLORIDE 10 MEQ TABLET.ER 20 MEQ PO ×3 (08:18→18:58)
[2020-11-23] MEDS: metFORMIN HCL 500 MG TABLET 1000 MG PO ×2 (08:18→17:42)
[2020-11-23] MEDS: GABAPENTIN 300 MG CAPSULE PO (08:18)
[2020-11-23] MEDS: FUROSEMIDE 40 MG TABLET PO (08:19)
[2020-11-23] MEDS: METOPROLOL TARTRATE 25 MG TABLET PO (08:19)
[2020-11-23] MEDS: lisinopriL 5 MG TABLET PO (08:19)
[2020-11-23 11:50] LABS: Glucose Point of Care 248 (65-105)
[2020-11-23] MEDS: MAGNESIUM OXIDE 400 MG TABLET PO (12:18)
[2020-11-23 16:32] LABS: Glucose Point of Care 290 (65-105)
--- NOTE | 2020-11-23 17:31 | PM.IMPN ---
Progress Note: A&P Assessment and Plan (1) COPD exacerbation: Code(s): J44.1 - Chronic obstructive pulmonary disease with (acute) exacerbation Status: Acute Assessment and Plan: Patient is on steroids. Continue with nebulizers. The patient was also started on azithromycin Rocephin. (2) Non-small cell cancer of right lung: Code(s): C34.91 - Malignant neoplasm of unspecified part of right bronchus or lung Status: Acute Assessment and Plan: Consult Dr. jones. The patient's last chemo treatment was approximately 2 weeks ago. seen by Oncology (3) Community acquired pneumonia: Code(s): J18.9 - Pneumonia, unspecified organism Status: Acute Assessment and Plan: Sputum and blood cultures are pending. The patient was started on a Zithromax and Rocephin. Continue with nebulizer treatments. (4) Congestive heart failure: Code(s): I50.9 - Heart failure, unspecified Status: Chronic Assessment and Plan: Continue with metoprolol, lisinopril, l and Lasix. (5) CAD (coronary artery disease): Code(s): I25.10 - Atherosclerotic heart disease of [place] coronary artery without angina pectoris Status: Chronic Assessment and Plan: Continue with daily aspirin and metoprolol. The patient has a history of 4 vessel CABG. (6) DM2 (diabetes mellitus, type 2): Code(s): E11.9 - Type 2 diabetes mellitus without complications Status: Chronic Assessment and Plan: Accu-Cheks AC and HS. Check A1c. Continue with glimepiride. (7) Hyperlipidemia: Code(s): E78.5 - Hyperlipidemia, unspecified Status: Acute Assessment and Plan: Continue with atorvastin (8) Anemia of chronic disease: Code(s): D63.8 - Anemia in other chronic diseases classified elsewhere Status: Chronic Assessment and Plan: The patient has been on ferrous sulfate and folic acid. Continue his home medications if able. Subjective Date/time seen: 11/23/20 17:31 Interval history: Interval history: 75-year-old male patient who has a history of stage IIIB non small cell lung cancer that has metastasized to the liver. The patient had been receiving radiation per Dr. smith which she completed this course and had concurrent chemotherapy between 01/03/2018 and 02/14/2018. Pt being treated for COPD exacerbation/ pneumonia. Seen by oncology doing ok today. Wants to go home tomorrow. Review of Systems Review of Systems: All systems reviewed & are unremarkable except as noted in HPI and below Exam Const: General: alert Orientation/consciousness: oriented to person, oriented to place, oriented to time and patient oriented x3 Limitations: no limitations Resp: Effort & Inspection: normal respiratory effort Auscultation: wheezes Percussion: percussion normal Cardio: Palpation: normal PMI Rate: regular rate Rhythm: regular rhythm Heart sounds: S1 normal heart sound present and S2 normal heart sound present Peripheral pulses: Peripheral pulses 2+ throughout Objective Data Vital Signs Vital Signs: Vital Signs - 24 hr 11/22/20 18:21 11/22/20 19:49 11/22/20 19:50 Temperature Pulse Rate 91 Respiratory Rate 18 Blood Pressure Pulse Oximetry 92 94 11/22/20 19:59 11/22/20 20:04 11/22/20 20:23 Temperature 36.2 C L Pulse Rate 96 88 Respiratory Rate 18 22 H Blood Pressure 116/58 L Pulse Oximetry 97 97 11/23/20 02:31 11/23/20 02:36 11/23/20 04:25 Temperature 36.1 C L Pulse Rate 87 88 86 Respiratory Rate 18 18 20 Blood Pressure 106/67 Pulse Oximetry 95 11/23/20 06:59 11/23/20 08:00 11/23/20 08:19 Temperature Pulse Rate 84 67 67 Respiratory Rate 18 18 Blood Pressure Pulse Oximetry 95 11/23/20 10:00 11/23/20 10:13 11/23/20 10:30 Temperature Pulse Rate Respiratory Rate Blood Pressure Pulse Oximetry 96 95 95 11/23/20 13:07 11/23/20 15:17 Temperature Pulse Rate 85 88 R
[2020-11-23] MEDS: traZODone HCL 50 MG TABLET 100 MG PO (20:31)
[2020-11-23] MEDS: ATORVASTATIN 40 MG TABLET 80 MG PO (20:31)
[2020-11-23] MEDS: GLIMEPIRIDE 1 MG TABLET PO (20:31)
[2020-11-23 22:07] LABS: Glucose Point of Care 399 (65-105)
[2020-11-23 22:08] LABS: Glucose Point of Care 364 (65-105)
[2020-11-24] VITALS (11 sets, daily range): BP systolic 124; BP diastolic 65; PULSE 82–100; RESP 16–20; TEMP 36.3; O2SAT 92–97
[2020-11-24] MEDS: ALBUTEROL SULFATE NEB 2.5 MG/0.5 ML INH 5 MG INHALATION ×2 (01:53→08:49)
[2020-11-24] MEDS: IPRATROPIUM BR 0.02% INH SOLN 0.5 MG/2.5 ML VIAL INHALATION ×2 (01:54→08:49)
[2020-11-24] MEDS: SODIUM CHLORIDE 0.9% IV 1,000 ML 100 ML IV CONT (03:18)
[2020-11-24] MEDS: methylPREDNISolone SOD SUCC 125 MG VIAL 60 MG IV PUSH (05:01)
[2020-11-24 06:02] LABS: Hematocrit 28.5 % (42.0-52.0); Hemoglobin 9.4 g/dL (14.0-18.0); Mean Corpuscular Hemoglobin 29.5 pg (26-34); Mean Corpuscular Volume 89.3 fl (80-100); Mean Platelet Volume 11.3 fl (7.4-10.4); Platelet Count Result 147 k/mm3 (150-375); Red Blood Count 3.19 M/mm3 (4.6-6.20); Red Cell Distribution Width 15.7 % (11.5-14.5); White Blood Count 24.1 K/mm3 (4.5-10.0)
[2020-11-24 06:21] LABS: Anion Gap 9 mmol/L (8-16); Blood Urea Nitrogen 28 mg/dL (9-20); Calcium 7.5 mg/dL (8.4-10.2); Carbon Dioxide 25 mmol/L (22-30); Chloride 103 mmol/L (98-107); Estimated CRCL calculation 58 ml/min; Estimated Glomerular Filt Rate > 60; Glucose 204 mg/dL (75-110); Sodium 137 mmol/L (137-145)
[2020-11-24 07:57] LABS: Glucose Point of Care 200 (65-105)
[2020-11-24] MEDS: metFORMIN HCL 500 MG TABLET 1000 MG PO (09:03)
[2020-11-24] MEDS: ASPIRIN 81 MG ENTERIC TABLET PO (09:03)
[2020-11-24] MEDS: POTASSIUM CHLORIDE 10 MEQ TABLET.ER 40 MEQ PO (09:04)
[2020-11-24] MEDS: CYANOCOBALAMIN 1,000 MCG TABLET 5000 MCG PO (09:05)
[2020-11-24] MEDS: GABAPENTIN 300 MG CAPSULE PO (09:06)
[2020-11-24] MEDS: METOPROLOL TARTRATE 25 MG TABLET PO (09:06)
[2020-11-24] MEDS: FUROSEMIDE 40 MG TABLET PO (09:07)
[2020-11-24] MEDS: lisinopriL 5 MG TABLET PO (09:07)
[2020-11-24] MEDS: FERROUS SULFATE 324 MG TABLET PO (10:00)
[2020-11-24] MEDS: ERGOCALCIFEROL 50,000 UNIT CAPSULE 50000 UNITS PO (10:00)
--- NOTE | 2020-11-24 10:24 | PM.DS ---
DS: Admitting Diagnosis Admitting Diagnosis Admitting Diagnosis: Shortness of breath DS: Discharge Diagnosis Discharge Diagnosis (1) COPD exacerbation: Code(s): J44.1 - Chronic obstructive pulmonary disease with (acute) exacerbation Status: Acute Assessment and Plan: Patient is on steroids. Continue with nebulizers. The patient was also started on azithromycin Rocephin. (2) Non-small cell cancer of right lung: Code(s): C34.91 - Malignant neoplasm of unspecified part of right bronchus or lung Status: Acute Assessment and Plan: Consult Dr. jones. The patient's last chemo treatment was approximately 2 weeks ago. seen by Oncology (3) Community acquired pneumonia: Code(s): J18.9 - Pneumonia, unspecified organism Status: Acute Assessment and Plan: Sputum and blood cultures are pending. The patient was started on a Zithromax and Rocephin. Continue with nebulizer treatments. (4) Congestive heart failure: Code(s): I50.9 - Heart failure, unspecified Status: Chronic Assessment and Plan: Continue with metoprolol, lisinopril, l and Lasix. (5) CAD (coronary artery disease): Code(s): I25.10 - Atherosclerotic heart disease of [place] coronary artery without angina pectoris Status: Chronic Assessment and Plan: Continue with daily aspirin and metoprolol. The patient has a history of 4 vessel CABG. (6) DM2 (diabetes mellitus, type 2): Code(s): E11.9 - Type 2 diabetes mellitus without complications Status: Chronic Assessment and Plan: Accu-Cheks AC and HS. Check A1c. Continue with glimepiride. (7) Hyperlipidemia: Code(s): E78.5 - Hyperlipidemia, unspecified Status: Acute Assessment and Plan: Continue with atorvastin (8) Anemia of chronic disease: Code(s): D63.8 - Anemia in other chronic diseases classified elsewhere Status: Chronic Assessment and Plan: The patient has been on ferrous sulfate and folic acid. Continue his home medications if able. DS: Summary Hospital Course Reason for hospitalization: this is a 75-year-old male patient who has a history of stage IIIB non small cell lung cancer that has metastasized to the liver. The patient had been receiving radiation per Dr. smith which she completed this course and had concurrent chemotherapy between 01/03/2018 and 02/14/2018. The patient continues to have pain it is durvalumab in April 2018 and second-line chemotherapy with carboplatin, Abraxane, and Keytruda followed by Taxotere cryamza a since 09/13/2020. The patient does not wear oxygen at home. He also has a history of COPD. The patient has had increasing shortness of breath over the last 3 days. Last chemotherapy was 2 weeks ago. Radiology as no evidence of pulmonary embolism. Emphysema. Persistent posterior medial right lower lobe mass invading diaphragm and scattered bilateral pulmonary metastasis, hepatic metastasis. Chest x-ray was read as diminish infiltrates and pleural effusions since 10/19/2020., Atrovent nebulizer, albuterol nebulizer, azithromycin, and ceftriaxone. Patient is being admitted to inpatient status on the date of service of 11/22/2020. Chief Complaint: Shortness of breath Hospital Course: Patient presented with shortness of suspected exacerbation of COPD to further evaluate and at the CTA of the chest showed: No evidence of pulmonary embolism Interval prominent consolidation/opacification in the right suprahilar area extending into the posteromedial right upper lobe; differential diagnosis includes pneumonia, postoperative radiation pneumonitis, most likely malignancy Persistent posteromedial right lower lobe mass invading diaphragm and scattered bilateral pulmonary metastases, hepatic metastasis Emphysema. Today patient clinically symptoms improving his clinically stable will discharge the patient home on tapering dose steroids he will continue inhaler, w
--- NOTE | 2020-11-24 10:53 | HOMEO2EVAL ---
Home Oxygen Evaluation RC: Home Oxygen (O2) Evaluation Start: 11/24/20 09:51 Freq: ONCE Status: Active Protocol: RPE Activity Type Activity Date Activity User E-Sign Co-Sign Detail Recorded Client Recorded Date Recorded By Document 11/24/20 10:47 KRM [id number] 11/24/20 10:53 KRM Document 11/24/20 10:48 KRM [email or web address] 11/24/20 10:53 KRM Document 11/24/20 10:49 KRM [email or web address] 11/24/20 10:53 KRM Document 11/24/20 10:50 KRM [email or web address] 11/24/20 10:53 KRM 11/24/20 11/24/20 11/24/20 10:47 10:48 10:49 Home O2 Evaluation Test Phase Resting Exercise Exercise Oxygen Delivery Room Air Room Air Room Air Pulse Oximetry (90-100 %) 97 94 95 Pulse Rate (60-100 beats/min) 94 94 95 Activity Tolerance Good Good Ambulation Distance (feet) 100 Treatment Charges O2 Evaluation - Inpatient 11/24/20 10:50 Home O2 Evaluation Test Phase Exercise Oxygen Delivery Room Air Pulse Oximetry (90-100 %) 92 Pulse Rate (60-100 beats/min) 96 Activity Tolerance Good Ambulation Distance (feet) Treatment Charges
[2020-11-24] MEDS: INSULIN ASPART (*BKC) 100 UNITS/ML SUB-Q (11:27)
[2020-11-24 12:40] LABS: Glucose Point of Care 260 (65-105)
== END 2020-11-24 12:40 | disposition home or self-care (01) | DRG 194 ==
LOC: ANHED 08:36 → ANH3MED 11:59
PROVIDERS: Family Medicine; Nurse Practitioner; Admitting Provider Hospitalist; Emergency Provider Emergency Medicine; PCP Internal Medicine; Visit Provider Family Medicine
DX: J18.9 Pneumonia, unspecified organism (principal); C34.91 Malignant neoplasm of unspecified part of right bronchus or lung; C78.7 Secondary malignant neoplasm of liver and intrahepatic bile duct; J43.9 Emphysema, unspecified; I25.10 Atherosclerotic heart disease of native coronary artery without angina pectoris; E78.5 Hyperlipidemia, unspecified; D63.8 Anemia in other chronic diseases classified elsewhere; E11.9 Type 2 diabetes mellitus without complications; I50.9 Heart failure, unspecified; F17.210 Nicotine dependence, cigarettes, uncomplicated; Z95.1 Presence of aortocoronary bypass graft; Z98.42 Cataract extraction status, left eye; Z98.41 Cataract extraction status, right eye; Z90.49 Acquired absence of other specified parts of digestive tract; Z79.82 Long term (current) use of aspirin
CPT/HCPCS: 36415; 36600; 71045; 71275; 80048; 80053; 82805; 82948; 83036; 83605; 83880; 84484; 85025; 85027; 85610; 85730; 87040; 87070; 87205; 93005; 94618; 94640; 96365; 96367; 96375; 99285; A9270; G0378; J0456; J0696; J1815; J2930; J7030; Q9967

== ENCOUNTER 2021-01-18 08:57 | Outpatient (CLI) | payer MEDICARE, SELFPAY ==
--- NOTE | ~2021-01-18 | CT_ITS ---
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 The dose-length product (DLP) was 858.92 mGy-cm. Automated exposure control and iterative reconstruction technique were employed. COMPARISON: 11/22/2020, 08/29/2020, 08/17/2020 FINDINGS: CHEST CT: There is severe emphysema. There is significant interval improvement in the previously described righ t suprahilar airspace opacities, likely resolved infection. There are multiple bilateral pulmonary no dules, some of which have decreased in size, some of which are stable, and some of which have enlarge d. A 3.5 x 2.8 cm right lower lobe mass invading the right hemidiaphragm is stable since the most rec ent comparison examination. A left subclavian Port-A-Cath ends with its tip in the distal superior ve na cava. Bilateral hilar and subcarinal lymphadenopathy is stable. The heart size is normal. There is no pleural effusion or pneumothorax. ABDOMEN/PELVIS CT: A 2.1 cm subcapsular lesion of liver segment II previously measured 1.9 cm. A 2.2 cm lesion in liver segment IVb most recently measured 1.2 cm. The gallbladder is surgically absent. Punctate calcificati ons in an otherwise normal spleen likely represent healed granulomatous disease. The pancreas and adr enal glands are normal. The kidneys are unremarkable. There is calcified atherosclerosis of the aorta and many of the other arteries. No pathologically enlarged abdominal or pelvic lymph nodes are ident ified. There is no free intraperitoneal gas or evidence of bowel obstruction. The appendix is normal. IMPRESSION: 1. Disease progression as evidenced by enlargement of some of the lung nodules and the right lower lo be mass invading the right hemidiaphragm as well as enlarging liver metastases. 2. Near complete resolution of the previously described right suprahilar airspace opacities, likely r esolving infection. Reviewed, dictated and finalized at location A. IMPRESSION: 1. Disease progression as evidenced by enlargement of some of the lung nodules and the right lower lobe mass invading the right hemidiaphragm as well as enlar ging liver metastases. 2. Near complete resolution of the previously described right suprahilar airspa ce opacities, likely resolving infection.
== END 2021-01-18 08:58 | disposition home or self-care (01) ==
PROVIDERS: PCP Internal Medicine; Visit Provider Internal Medicine Hematology & Oncology
DX: C34.91 Malignant neoplasm of unspecified part of right bronchus or lung (principal)
CPT/HCPCS: 71260; 74177; Q9967

== ENCOUNTER 2021-03-05 17:19 | Emergency (ER) | payer MEDICARE, SELFPAY ==
--- NOTE | 2021-03-05 17:28 | ED.GENADULT ---
HPI - General Adult General Chief complaint: Skin/Abscess/Foreign Body Stated complaint: knot on back Time Seen by Provider: 03/05/21 17:55 Source: patient and RN notes reviewed Mode of arrival: ambulatory Limitations: no limitations History of Present Illness HPI narrative: 75-year-old male presents concern for a tender nodule on his back. He has a history of lung cancer and is currently undergoing chemotherapy. He denies any injury to the back, noticed the area was painful yesterday. Reports small amount of drainage from the area. Denies intervention. He denies general malaise, fever, chills. complaint: Nodule Related Data Home Medications Medication Instructions Recorded Confirmed aspirin [Aspir-81] 81 mg PO DAILY 06/16/19 02/26/21 atorvastatin 80 mg PO HS 06/16/19 02/26/21 furosemide 40 mg PO DAILY 06/16/19 02/26/21 glimepiride 1 mg PO HS 06/16/19 02/26/21 lisinopril 5 mg PO DAILY 06/16/19 02/26/21 metformin 1,000 mg PO BID 06/16/19 02/26/21 metoprolol tartrate 25 mg PO DAILY 06/16/19 02/26/21 nitroglycerin 0.4 mg SUBLINGUAL DIRECTED PRN 06/16/19 02/26/21 potassium chloride 20 meq PO BID 06/16/19 02/26/21 trazodone 100 mg PO HS 06/16/19 02/26/21 ferrous sulfate 325 mg PO DAILY 04/11/20 02/26/21 magnesium oxide 500 mg PO DAILY 04/11/20 02/26/21 ergocalciferol (vitamin D2) 50,000 unit PO WEEKLY 11/22/20 02/26/21 gabapentin 300 mg PO DAILY 11/22/20 02/26/21 nitroglycerin 0.4 mg SUBLINGUAL Q5M PRN 11/22/20 02/26/21 cyanocobalamin (vitamin B-12) 5,000 mcg PO DAILY 11/23/20 02/26/21 Allergies Allergy/AdvReac Type Severity Reaction Status Date / Time No Known Allergies Allergy Verified 02/19/21 09:42 Review of Systems Review of Systems: Narrative: CONSTITUTIONAL: Denies malaise, chills, sweats, or fever. SKIN: Reports a tender nodule to the upper back MUSCULOSKELETAL: Denies myalgia. All systems reviewed & are unremarkable except as noted in HPI and below PMFSH Past Medical History Medical History (Updated 03/05/21 @ 18:04 by Ewa Luu NP) Anemia of chronic disease CAD (coronary artery disease) Congestive heart failure DM2 (diabetes mellitus, type 2) Hyperlipidemia Non-small cell cancer of right lung Surgical History Surgical History (Updated 11/22/20 @ 16:30 by Lisa Robertson MD) H/O four vessel coronary artery bypass graft H/O right knee surgery History of cataract extraction History of surgery on upper extremity Hx of cholecystectomy Family History Family History Father Hypertension Sibling Hypertension Diabetes mellitus Mother Cerebrovascular accident Social History Social History (Updated 11/22/20 @ 14:17 by Leelee Case NP) Social History: The patient is and his is the durable power claim attorney for healthcare. The patient desires to be a full code. Patient has 3 biological children. The patient still continues to smoke at least 2 cigarettes a day. 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 Prior to that he worked in the [employer]. He also served in the . No alcohol or illicit drugs. Smoking status: Current every day smoker Tobacco type: cigarettes Alcohol intake: never Substance use: never Gender identity (if verbalized by the patient): Male Spiritual care concerns: No Comments At time of signature, agree with nursing past medical, surgical, social and family history. There is no relevant family history pertinent to the presenting complaint Exam Narrative: Exam Narrative: GENERAL: Well-appearing, well-nourished, and in no acute distress. HEAD: Normocephalic, atraumatic. EYES: PERRLA, conjunctivae clear, and EOMI. ENT: Mucous membranes moist. NECK: Supple. No lymphadenopathy CHEST: Clear to auscultation. No respiratory distress. HEART: Regular rate and rhythm. SKIN: Warm, dry. 3 cm diameter nodule, irregular shaped, semiflat, nonf
[2021-03-05 17:32] VITALS: BP 142/66; PULSE 95; RESP 20; TEMP 36.8; O2SAT 93
== END 2021-03-05 18:12 | disposition home or self-care (01) ==
PROVIDERS: Emergency Provider Nurse Practitioner; PCP Internal Medicine
DX: R22.2 Localized swelling, mass and lump, trunk (principal); F17.210 Nicotine dependence, cigarettes, uncomplicated; I25.10 Atherosclerotic heart disease of native coronary artery without angina pectoris; D64.9 Anemia, unspecified; I11.0 Hypertensive heart disease with heart failure; I50.9 Heart failure, unspecified; E78.5 Hyperlipidemia, unspecified; Z95.1 Presence of aortocoronary bypass graft; Z98.49 Cataract extraction status, unspecified eye; C34.91 Malignant neoplasm of unspecified part of right bronchus or lung
CPT/HCPCS: 99213; G0463

== ENCOUNTER 2021-05-10 13:08 | Outpatient (CLI) | payer MEDICARE, SELFPAY ==
--- NOTE | ~2021-05-10 | CT_ITS ---
EXAMINATION: CT chest abdomen pelvis w con DATE: 05/10/2021 16:15 CDT INDICATION: Non-small cell cancer of the lung. TECHNIQUE: Computed tomography (CT) of the chest, abdomen, and pelvis was performed with 100 cc Omnip aque 350 intravenous contrast. The dose-length product was 817.62 mGy-cm. Automated exposure control and iterative reconstruction technique were employed. COMPARISON: CT dated 01/18/2021 FINDINGS: CHEST CT: There are calcified mediastinal lymph nodes, consistent with chronic granulomatous disease. No signif icant pleural or pericardial effusion. There is a enlarging paraesophageal mass involving the mediast inum measuring 1.6 x 1.5 cm, image 89. Status post median sternotomy for CABG. There is severe emphys neyda. There is progression of right upper lobe mass extending to the pleural surface, image 31, measur ing 3.8 x 1.6 cm. There is a 1 cm left upper lobe nodule, image 32, slightly increased in size compar ed with prior examination. There is a developing spiculated mass in the left lower lobe, image 56, me asuring 1.4 cm. There are developing additional developing lower lobe nodules measuring 1.6 cm in the right lower lobe, image 66 and 1.4 cm and the left lower lobe, image 68. There is a new pleural-base d mass abutting the mediastinum and right cardiac contour, image 93, measuring 3 x 1.7 cm. Trace righ t pleural effusion. There has been progression of mass size involving the right diaphragm extending i nto the upper abdomen abutting the right adrenal gland as well as the right lower lobe. This mass gabrielle sures 3.7 x 3.7 cm compared with 3.6 x 3.3 cm on prior examination. ABDOMEN/PELVIS CT: There has been progression of number and size of liver metastases, largest located in the left hepati c lobe. For instance in the medial segment of the left hepatic lobe there is a dominant mass measurin g 6.3 x 3.4 cm compared with 2.3 x 1.3 cm on prior examination. In the lateral segment of the left he patic lobe there is a 4.7 x 4.6 cm mass, image 130, compared with 2.3 x 1.9 cm on prior examination. There are cholecystectomy clips. There are calcified granulomas in the spleen. There is moderate athe rosclerosis of the aorta. There is thickening of the pylorus and proximal duodenum. Bowel pattern is nonobstructive. No free air. Small fat-containing hernia in the anterior upper abdominal wall anterio r to the liver. Colonic diverticulosis without diverticulitis. No focal lytic or blastic lesions are identified. IMPRESSION: 1. Interval progression of metastatic disease to the lung, mediastinum and liver. Reviewed, dictated and finalized at location A. IMPRESSION: 1. Interval progression of metastatic disease to the lung, mediastinum and live r.
== END 2021-05-10 13:09 | disposition home or self-care (01) ==
PROVIDERS: PCP Internal Medicine; Visit Provider Internal Medicine Hematology & Oncology
DX: C34.91 Malignant neoplasm of unspecified part of right bronchus or lung (principal); C78.1 Secondary malignant neoplasm of mediastinum; C78.7 Secondary malignant neoplasm of liver and intrahepatic bile duct
CPT/HCPCS: 71260; 74177; Q9967

== ENCOUNTER 2021-07-31 17:58 | Inpatient (IN) | payer MEDICARE, SELFPAY ==
[2021-07-31] VITALS (24 sets, daily range): BP systolic 96–128; BP diastolic 42–105; PULSE 93–111; RESP 4–34; O2SAT 85–100
--- NOTE | ~2021-07-31 | US_ITS ---
EXAMINATION: US venous doppler [facility] DATE: 08/01/2021 18:08 INDICATION: Lower limb swelling. TECHNIQUE: Grayscale ultrasound images without and with compression and Doppler ultrasound images of the bilateral lower extremity veins were obtained. COMPARISON: Ultrasound 08/03/2004 FINDINGS: The visualized portions of right common femoral vein, profunda (deep) femoral vein, femoral vein, pop liteal vein, peroneal veins, posterior tibial veins, and greater saphenous vein outflow are patent. The visualized portions of left common femoral vein, profunda femoral vein, femoral vein, popliteal v ein, peroneal veins, posterior tibial veins, and greater saphenous vein outflow are patent. IMPRESSION: 1. No deep venous thrombosis. Reviewed, dictated and finalized at location A. HER CRAFTER
--- NOTE | ~2021-07-31 | XR_ITS ---
EXAMINATION: XR chest 1V portable DATE: 07/31/2021 18:33 INDICATION: Shortness of breath. TECHNIQUE: A single frontal view of the chest was obtained. COMPARISON: Chest single view 11/22/2020, chest CT 05/10/2021 FINDINGS: There are lucencies in the upper lungs, consistent with emphysema. There are scattered nodu les in the lungs, consistent with metastatic disease. There are airspace opacities in the lower lung zones and left perihilar region. No pleural effusion or pneumothorax. The heart size is normal. Media n sternotomy wires and mediastinal surgical clips are seen, likely from prior coronary artery bypass grafting. There is a left subclavian port with tip at superior cavoatrial junction. IMPRESSION: 1. Worsened airspace opacities in the lower lung zones and left perihilar region, consistent with ate lectasis/scarring versus pneumonia. 2. Pulmonary nodules, consistent with metastatic disease. 3. Emphysema. Reviewed, dictated and finalized at location A. TRUCTION CREW MEMBER IMPRESSION: 1. Worsened airspace opacities in the lower lung zones and left perihilar regio n, consistent with atelectasis/scarring versus pneumonia. 2. Pulmonary nodules, consistent with metastatic disease. 3. Emphysema.
--- NOTE | ~2021-07-31 | CT_ITS ---
EXAMINATION: CTA chest PE protocol DATE: 07/31/2021 20:29 INDICATION: Shortness of breath. TECHNIQUE: Computed tomography angiography (CTA) of the chest was performed with 100 mL Omnipaque-350 intravenous contrast timed to evaluate the pulmonary arteries. Coronal maximum intensity projection 3D-reconstructions were created by the technologist. Automated exposure control and iterative reconst ruction technique were employed. The dose-length product was 378.58 mGy-cm. COMPARISON: Chest CT 05/10/2021 FINDINGS: There is moderate emphysema. There are greater than 10 nodules in the lungs, consistent met astatic disease. For example, an 18 mm nodule in left lower lobe previously measured 14 mm. There are patchy airspace opacities and centrilobular nodules in the lower lobes, right middle lobe, and lingu la, consistent with pneumonia. No pleural effusion. The heart size is normal. There are coronary yasmany ry calcifications. There are changes of coronary artery bypass grafting. There is no pulmonary embolu s. There is mediastinal and bilateral hilar lymphadenopathy, consistent with metastatic disease. Calc ified mediastinal and hilar lymph nodes are consistent with old granulomatous disease. There are mult iple masses in the liver. For example, a 4.7 cm mass in right hepatic lobe previously measured 2.5 cm . There is a left subclavian port with tip in right atrium. There is a chronic compression fracture o f L1. IMPRESSION: 1. Pneumonia involving the lower lobes, right middle lobe, and lingula. 2. Worsened lung nodules, liver masses, and chest lymphadenopathy, consistent with metastatic disease . 3. No pulmonary embolus. Reviewed, dictated and finalized at location A. NER SPRAYER IMPRESSION: 1. Pneumonia involving the lower lobes, right middle lobe, and lingula. 2. Worsened lung nodules, liver masses, and chest lymphadenopathy, consistent w ith metastatic disease. 3. No pulmonary embolus.
--- NOTE | ~2021-07-31 | XR_ITS ---
EXAMINATION: XR chest 1V portable DATE: 08/06/2021 08:40 INDICATION: Shortness of breath. TECHNIQUE: A single frontal view of the chest was obtained on 2 radiographs. COMPARISON: Chest single view 07/31/2021, chest CT 07/31/2021 FINDINGS: There are lucencies in the lungs, consistent with emphysema. There is scattered nodules in the lungs. There are airspace opacities in the lower lung zones, right worse than left. There is a sm all right pleural effusion. No pneumothorax. The heart size is normal. Median sternotomy wires and me diastinal surgical clips are seen, likely from prior coronary artery bypass grafting. There is a left subclavian port with tip at superior cavoatrial junction. IMPRESSION: 1. Airspace opacities in the lower lung zones with worsening on the right, consistent with pneumonia. 2. Worsened small right pleural effusion. 3. Scattered pulmonary nodules, consistent with metastatic disease. 4. Emphysema. Reviewed, dictated and finalized at location A. ATIENT CODING SPECIALIST IMPRESSION: 1. Airspace opacities in the lower lung zones with worsening on the right, cons istent with pneumonia. 2. Worsened small right pleural effusion. 3. Scattered pulmonary nodules, consistent with metastatic disease. 4. Emphysema.
--- NOTE | 2021-07-31 18:06 | ECG_ITS ---
Measurements Intervals [place] Rate: 115 P: 85 [place]: 126 QRS: 66 QRSD: 80 T: 91 QT: 312 QTc: 432 Interpretive Statements SINUS TACHYCARDIA NONSPECIFIC ST & T-WAVE ABNORMALITY- DIFFUSE LEADS BASELINE ARTIFACT- V4-V6 ABNORMAL ECG Electronically Signed On 07-31-2021 19:15:49 POST ANESTHESIA ROOM NURSE by Avinash Worthy D.O.
--- NOTE | 2021-07-31 18:20 | ED.SOB ---
HPI - SOB/Dyspnea General Chief Complaint: Shortness of Breath/Dyspnea Stated Complaint: sob, low spo2 Time Seen by Provider: 07/31/21 18:19 Source: patient Mode of arrival: wheelchair Limitations: no limitations History of Present Illness HPI Narrative: Patient is a 76-year-old male brought in due to shortness of breath. Patient states that he is constantly short of breath but today it is worse, his oxygen saturation dropped to 70s when he checked it at home accompanied by an elevated heart rate in the 120s. Patient states that he has a history of COPD and CHF. Patient denies any chest pain, abdominal pain, nausea, vomiting, fever or chills. Patient states that he is vaccinated from [employer]. Related Data Home Medications Medication Instructions Recorded Confirmed aspirin [Aspir-81] 81 mg PO DAILY 06/16/19 05/12/21 atorvastatin 80 mg PO HS 06/16/19 05/12/21 furosemide 40 mg PO DAILY 06/16/19 05/12/21 glimepiride 1 mg PO HS 06/16/19 05/12/21 lisinopril 5 mg PO DAILY 06/16/19 05/12/21 metformin 1,000 mg PO BID 06/16/19 05/12/21 metoprolol tartrate 25 mg PO DAILY 06/16/19 05/12/21 nitroglycerin 0.4 mg SUBLINGUAL DIRECTED PRN 06/16/19 05/12/21 potassium chloride 20 meq PO BID 06/16/19 05/12/21 trazodone 100 mg PO HS 06/16/19 05/12/21 ferrous sulfate 325 mg PO DAILY 04/11/20 05/12/21 magnesium oxide 500 mg PO DAILY 04/11/20 05/12/21 ergocalciferol (vitamin D2) 50,000 unit PO WEEKLY 11/22/20 05/12/21 gabapentin 300 mg PO DAILY 11/22/20 05/12/21 cyanocobalamin (vitamin B-12) 5,000 mcg PO DAILY 11/23/20 05/12/21 Allergies Allergy/AdvReac Type Severity Reaction Status Date / Time No Known Allergies Allergy Verified 05/12/21 14:31 Review of Systems Review of Systems: All systems reviewed & are unremarkable except as noted in HPI and below Constitutional: Constitutional: Denies body ache(s), Denies chills, Denies excessive sweating, Denies fatigue, Denies fever(s), Denies headache(s), Denies lethargy, Denies malaise, Denies weakness and Denies weight loss Eyes: Eyes: Denies blurry vision, Denies change in vision and Denies loss of vision ENT: Denies dizziness, Denies ear discharge, Denies headache(s), Denies lip swelling, Denies epistaxis, Denies nasal congestion, Denies neck pain, Denies throat swelling and Denies tongue swelling Cardiovascular: Cardiovascular: Denies chest pain, Denies chest pain at rest, Denies chest pain with activity, Denies diaphoresis, Denies rapid heart rate, Denies edema, Denies irregular heart rhythm, Denies lightheadedness and Denies palpitations Respiratory: Respiratory: Denies chest congestion, Denies cough and Denies hemoptysis Gastrointestinal: Gastrointestinal: Denies abdominal pain, Denies melena, Denies hematochezia, Denies diarrhea, Denies nausea, Denies vomiting and Denies hematemesis Musculoskeletal: Musculoskeletal: Denies abnormal gait, Denies deformity, Denies joint swelling, Denies limited range of motion, Denies neck pain and Denies numbness Neurologic: Denies Abnormal speech present, Denies abnormal gait, Denies confusion, Denies dizziness, Denies headache(s), Denies focal weakness, Denies loss of vision, Denies numbness, Denies Other visual disturbances, Denies Sensory deficit (Neuro) and Denies weakness Psychiatric: Psychiatric: Denies confusion, Denies depression, Denies auditory hallucinations, Denies homicidal ideation and Denies suicidal ideation Endocrine: Endocrine: Denies cold intolerance, Denies excessive sweating, Denies fatigue, Denies heat intolerance and Denies palpitations Hematologic/Lymphatic: Hematologic/Lymphatic: Denies easy bleeding and Denies easy bruising Allergic/Immunologic: Allergic/Immunologic: Denies lip swelling, Denies throat swelling and Denies tongue swelling PMFSH Past Medical History Medical History Anemia of chronic disease CAD (coronary artery disease) Congestive heart failure DM2 (diabetes mellitu
[2021-07-31 18:30] LABS: Hematocrit 27.7 % (42.0-52.0); Hemoglobin 8.9 g/dL (14.0-18.0); Mean Corpuscular HGB Conc 32.1 g/dl (32-36); Mean Corpuscular Hemoglobin 27.4 pg (26-34); Mean Corpuscular Volume 85.2 fl (80-100); Mean Platelet Volume 12.8 fl (7.4-10.4); Platelet Count Result 127 k/mm3 (150-375); Red Blood Count 3.25 M/mm3 (4.6-6.20); Red Cell Distribution Width 14.8 % (11.5-14.5); White Blood Count 20.6 K/mm3 (4.5-10.0)
[2021-07-31 18:44] LABS: Alveolar/Arterial O2 Gradient 76.6 mmHg; Device NASAL CANNULA; Fractional Inspired Oxygen 28 %; Modified Allen's Test Pass; Oxygen Content ABG 13.1 %vol (16.0-22.0); Oxyhemoglobin 93.7 % THb (90.0-100.0); PCO2 ABG 39.1 mmHg (35.0-45.0); PO2 ABG 76.9 mmHg (80.0-100.0); PO2 FiO2 Ratio Arterial Blood 2.75 %; Site Drawn RIGHT RADIAL; Total Hemoglobin 9.9 g/dL (12.0-18.0); pH ABG 7.457 (7.350-7.450)
[2021-07-31 18:44] LABS: Alanine Aminotransferase 20 U/L (4-50); Albumin Level 3.7 g/dL (3.5-5.1); Alkaline Phosphatase 344 U/L (38-126); Anion Gap 11 mmol/L (8-16); Aspartate Amino Transferase 36 U/L (17-59); Bilirubin,Total 0.5 mg/dL (0.2-1.3); Blood Urea Nitrogen 41 mg/dL (9-20); Calcium 9.3 mg/dL (8.4-10.2); Carbon Dioxide 28 mmol/L (22-30); Chloride 97 mmol/L (98-107); Estimated CRCL calculation 60 ml/min; Estimated Glomerular Filt Rate > 60; Glucose 132 mg/dL (65-110); Potassium 4.2 mmol/L (3.4-5.0); Sodium 136 mmol/L (137-145)
[2021-07-31] MEDS: IPRATROPIUM BR 0.02% INH SOLN 0.5 MG/2.5 ML VIAL INHALATION (18:44)
[2021-07-31] MEDS: ALBUTEROL SULFATE NEB 2.5 MG/0.5 ML INH 5 MG INHALATION (18:44)
[2021-07-31 18:46] LABS: Lactic Acid Reflex 1.4 mmol/L (0.7-2.1)
[2021-07-31] MEDS: methylPREDNISolone SOD SUCC 125 MG VIAL IV PUSH (18:47)
[2021-07-31] MEDS: FUROSEMIDE INJ 40 MG/4 ML VIAL IV PUSH (18:47)
[2021-07-31 18:53] LABS: NT Pro B Type Natriuretic Pept 1130 pg/mL (5-100)
[2021-07-31 18:55] LABS: D Dimer 4.36 ug/mL (<0.48)
[2021-07-31 18:58] LABS: Band Neutrophils Percent 1 % (0-6); Lymphocytes Absolute Manual 0.61 K/mm3 (1.1-4.5); Neutrophils Absolute Manual 19.98 K/mm3 (1.3-6.7); Neutrophils Percent Manual 96 % (46-73); Platelet Estimate Decreased (Adequate); Total Cells Counted 100
[2021-07-31 18:59] LABS: Anisocytosis 1+ (NORMAL)
[2021-07-31 19:41] LABS: INR 1.1; Prothrombin Time 14.3 Seconds (11.1-14.7)
--- NOTE | 2021-07-31 19:45 | PC.NURSE ---
fpt refusing bipap at this time, provider aware. pt to be placed on 2l NC
[2021-07-31] MEDS: SODIUM CHLORIDE 0.9% IV 500 ML 999 ML (22:51)
--- NOTE | 2021-07-31 22:51 | PC.NURSE ---
LALIT FROM DR CASTILLO TO GIVE 500 ML NS BOLUS X1 TO PT
[2021-08-01] VITALS (97 sets, daily range): BP systolic 76–141; BP diastolic 38–93; PULSE 77–189; RESP 14–44; TEMP 35.9–36.4; O2SAT 84–98; BMI 28.4
--- NOTE | 2021-08-01 00:06 | ECG_ITS ---
Measurements Intervals [place] Rate: 150 P: [place]: 0 QRS: 66 QRSD: 78 T: 0 QT: 254 QTc: 401 Interpretive Statements ATRIAL FIBRILLATION WITH RAPID VENTRICULAR RESPONSE LOW QRS VOLTAGE IN LIMB LEADS NONSPECIFIC ST & T-WAVE ABNORMALITY- DIFFUSE LEADS ABNORMAL ECG Electronically Signed On 08-01-2021 7:44:14 COLD MEAT COOK by Avinash Worthy D.O.
--- NOTE | 2021-08-01 00:12 | PC.NURSE ---
RN noted irregular HR about 0000 on desk monitor. old EKG showed sinus tach 110. looks to be A-Fib RVR with rate of 140-165. pt alert/ awake sitting up in bed. denies any new symptoms.
--- NOTE | 2021-08-01 00:13 | PC.NURSE ---
Dr. Kent at bedside to see EKG
[2021-08-01] MEDS: LACTATED RINGERS 1,000 ML 80 ML IV CONT ×2 (00:20→13:43)
[2021-08-01] MEDS: dilTIAZem HCl INJ 25 MG/5 ML VIAL 10 MG IV PUSH (00:21)
--- NOTE | 2021-08-01 00:37 | PM.IMHP ---
H&P: HPI History of Present Illness Date/Time: 08/01/21 00:37 Chief Complaint: Increased shortness of breath Narrative: 76-year-old male with a past medical history of coronary artery disease status post CABG, CHF stage IV non-small cell lung cancer, and COPD who presented to the ER with increased shortness of breath that started today. The patient reported chronically short of breath due to his history of lung cancer and COPD. He still smokes 2 cigarettes a day and chews a 3rd of a can of tobacco a day. However today when he was leaving work he became markedly short of breath. His oxygen saturations dropped into the 70s when he checked them at home. So he in drove himself to the ER. On arrival to the ER the patient was satting 85% on room air. The patient reports that he has a chronic cough but does not think it has changed much from baseline. His cough is occasionally productive of white yellow and or green sputum but again this is unchanged from baseline. He he does note that his breath sounds have been more course and rattling. He denies any recent ill contacts. He did received the Moderna COVID vaccine as well as his booster. He denies having any fevers or chills. He reports that his last chemotherapy failed and he is now stage IV lung cancer. He was subsequently referred 3 weeks ago to [facility] for a drug trial. He does not know if he actually is receiving any chemotherapy or medications or what medications he is receiving. He received medications 3 weeks ago. He has been back for repeat labs once weekly since then. He states that depending on what his next week's lab results are determine whether not he gets another treatment. He denies having any avinash diarrhea but does tend to fluctuate between constipation and diarrhea. His last bowel movement was day before yesterday and was mushy and soft but not diarrheal. He denies any nausea or vomiting. He reports a fair appetite. He denies any chest pain or palpitations. However just before my evaluation the patient flipped into AFib RVR. He denies a history of atrial fibrillation but does have a history of coronary artery disease. He actually denies a history of CHF but CHF is listed in his history. He reports a follows with his data review specialist at [facility] once or twice a year. He thinks his last echocardiogram was about 6 months ago. He reports that his echo was stable. He denies any lower extremity swelling. He denies any dysuria changes in urinary frequency or urgency. He occasionally feels if he does not empty his bladder completely. Review of Systems Review of Systems: 12 systems were reviewed with pertinent positives and negatives per HPI. Except as documented in the HPI, all other systems were reviewed and are negative. [facility] Past Medical History Medical History (Updated 08/01/21 @ 08:35 by Felecia Kent DO) Anemia of chronic disease CAD (coronary artery disease) Congestive heart failure DM2 (diabetes mellitus, type 2) Hyperlipidemia Non-small cell carcinoma of left lung, stage 4 Surgical History Surgical History (Updated 08/01/21 @ 08:27 by Felecia Kent DO) H/O four vessel coronary artery bypass graft (~1984) H/O right knee surgery History of surgery on upper extremity Hx of cholecystectomy Status post cataract extraction of both eyes with insertion of intraocular lens Family History Family History Father Hypertension Sibling Hypertension Diabetes mellitus Mother Cerebrovascular accident Social History Social History (Updated 08/01/21 @ 08:29 by Felecia Kent DO) Social History: The patient is and 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 The patient desires to be a full code. Patient has 3 biological children. The patient still continues to smoke at least 2 cigarettes a day. 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 Prior to that
[2021-08-01] MEDS: SODIUM CHLORIDE 0.9% IV 1,000 ML 999 ML IV CONT (03:03)
--- NOTE | 2021-08-01 07:30 | PC.NURSE ---
Hospitalist notified of patient blood pressures being in the 90s on the diltiazem drip. Hospitalist aware. EDP order via verbal order read back to continue to diltiazem drip but to titrate medication down per protocol.
[2021-08-01] MEDS: ALBUTEROL SULFATE NEB 2.5 MG/0.5 ML INH 5 MG INHALATION (07:32)
[2021-08-01] MEDS: IPRATROPIUM BR 0.02% INH SOLN 0.5 MG/2.5 ML VIAL INHALATION ×3 (07:33→15:52)
--- NOTE | 2021-08-01 07:48 | PC.NURSE ---
ordered breakfast tray
--- NOTE | 2021-08-01 08:19 | ECHO_ITS ---
Patient Info Name: Hao Call Age: 76 years : 1945 Gender: Male Ht: 68 in Wt: 176 lbs BSA: 1.97 m2 HR: 137 bpm BP: 111 / 64 mmHg Technical Quality: Fair Exam Date: 08/01/2021 11:12 AM Exam Location: [facility] Pulmonary Exam Room: ED-1 Patient Status: Inpatient Admit Date: 07/31/2021 Staff Ordering Physician: Felecia Kent DO Roll Winder: Ligia Danielson RDCS Attending Provider: Felecia Kent DO Referring Physician: Donte MONTES; Exam Type: CA echo doppler color flow Study Info Indications - CHF RVR CAD Complete two-dimensional, color flow and Doppler transthoracic echocardiogram is performed. Summary 1. Complete two-dimensional, color flow and Doppler transthoracic echocardiogram is performed. 2. Left ventricular chamber dimension is normal. 3. Left ventricular systolic function is normal, estimated at 60-65%. 4. The left ventricular diastolic function is normal. 5. E/e' 8 is minimally elevated. 6. Atrial fibrillation. 7. Left atrial chamber dimension is mildly enlarged. 8. There is moderate aortic valve sclerosis. 9. There is mild mitral valve regurgitation. 10. There is mild to moderate tricuspid valve regurgitation. 11. Mild pulmonary hypertension, estimated pulmonary arterial systolic pressure is 41 mmHg. Left Ventricle E/e' 8 is minimally elevated. Atrial fibrillation. Left ventricular chamber dimension is normal. Left ventricular systolic function is normal, estimated at 60-65%. The left ventricular diastolic function is normal. Right Ventricle Right ventricular chamber dimension is normal. Right ventricular systolic function is normal. Left Atria Left atrial chamber dimension is mildly enlarged. Right Atria Right atrial chamber dimension is normal. Aortic Valve The aortic valve is trileaflet. There is moderate aortic valve sclerosis. There is no aortic valve stenosis. There is no aortic valve regurgitation. Pulmonic Valve There is no pulmonic regurgitation. Mitral Valve There is no mitral valve stenosis. There is mild mitral valve regurgitation. Tricuspid Valve There is mild to moderate tricuspid valve regurgitation. Mild pulmonary hypertension, estimated pulmonary arterial systolic pressure is 41 mmHg. Pericardium/Pleural There is no pericardial effusion. Inferior Vena Cava Normal inferior vena cava with >50% collapse upon inspiration consistent with normal right atrial pressure, 5 mmHg. Aorta The aortic root size at the sinus of Valsalva is normal. Left Ventricular Outflow Tract Name Value Normal LVOT 2D LVOT Diameter 2.1 cm Pulmonic Valve Name Value Normal PV Doppler PV Peak Gradient 4 mmHg Mitral Valve Name Value Normal MV Doppler
--- NOTE | 2021-08-01 08:42 | PC.NURSE ---
Pt noted to have some bloody sputum this AM upon waking.
[2021-08-01] MEDS: CEFEPIME 2 GM in DEXTROSE 5% IN WATER 50 ML IVPB ×2 (08:43→19:05)
[2021-08-01] MEDS: ENOXAPARIN 80 MG/0.8 ML SYRINGE SUB-Q (10:36)
[2021-08-01 10:39] LABS: Basophils Absolute Auto 0.1 K/mm3 (0.0-0.1); Basophils Percent Auto 0.4 % (0.2-1.2); Eosinophils Absolute Auto 0.2 K/mm3 (0-0.3); Eosinophils Percent Auto 0.9 % (0-4.4); Hematocrit 26.2 % (42.0-52.0); Hemoglobin 8.4 g/dL (14.0-18.0); Immature Granulocyte Absolute 0.11 K/mm3 (0.00-0.031); Immature Granulocyte Percent A 0.7 % (0-0.5); Immature Platelet Fraction Pct 20.4 % (0.9-11.2); Lymphocytes Absolute Auto 0.69 K/mm3 (0.9-3.2); Lymphocytes Percent Auto 4.4 % (18.3-44.2); Mean Corpuscular HGB Conc 32.1 g/dl (32-36); Mean Corpuscular Hemoglobin 27.5 pg (26-34); Mean Corpuscular Volume 85.9 fl (80-100); Mean Platelet Volume 12.8 fl (7.4-10.4); Monocytes Absolute Auto 1.4 K/mm3 (0.1-0.6); Neutrophils Absolute Auto 13.4 K/mm3 (1.3-6.7); Neutrophils Percent Auto 84.6 % (45.5-73.1); Platelet Count Result 131 k/mm3 (150-375); Red Blood Count 3.05 M/mm3 (4.6-6.20); White Blood Count 15.9 K/mm3 (4.5-10.0)
[2021-08-01 11:05] LABS: Alanine Aminotransferase 22 U/L (4-50); Albumin Level 3.2 g/dL (3.5-5.1); Alkaline Phosphatase 284 U/L (38-126); Anion Gap 7 mmol/L (8-16); Aspartate Amino Transferase 39 U/L (17-59); Bilirubin,Total 0.3 mg/dL (0.2-1.3); Blood Urea Nitrogen 34 mg/dL (9-20); Calcium 8.7 mg/dL (8.4-10.2); Carbon Dioxide 30 mmol/L (22-30); Chloride 97 mmol/L (98-107); Estimated CRCL calculation 60 ml/min; Estimated Glomerular Filt Rate > 60; Glucose 212 mg/dL (65-110); Magnesium 1.7 mg/dL (1.6-2.3); Potassium 4.1 mmol/L (3.4-5.0); Sodium 134 mmol/L (137-145)
[2021-08-01 11:17] LABS: Troponin I < 0.012 ng/mL (0.000-0.034)
[2021-08-01 12:35] LABS: Glucose Point of Care 122 mg/dl (65-105)
--- NOTE | 2021-08-01 13:28 | PC.NURSE ---
Pt noted to be sob, resp labored while on 5L per NC. O2 Sat noted to be 84%. Dr. Velasquez and Leelee Acosta NP is aware and orders received. Caridology also aware of elevated hr and will re-evaluate after neb tx.
--- NOTE | 2021-08-01 13:38 | PC.NURSE ---
Pt's HR increased to 130's-140's consistently, had two soft blood pressures. Spoke with battery charger regarding possibly increasing dilt drip. Call and spoke with admitting MD. Returned to patient's room and he was found to be more hypoxic (alert, speaking full sentences) with SpO2 88%. O2 rate increased to 6L NC. Pt was spitting into emesis bag when RN returned to room. Bright red blood seen in this emesis bag, pt states he has been coughing up blood all night , pt did not have a bloody emesis bag and has not been seen coughing up blood by this RN the few other times I have been in his room since assuming care at 11:00am. Will speak with provider again. RT now at bedside giving breathing treatment. Pt remains A&Ox4, speaking full sentences.
--- NOTE | 2021-08-01 15:28 | PM.CNCAR ---
Assessment and Plan Additional Plan This is a 76-year-old man with a background of coronary disease remote history of surgical revascularization following which he has been very stable according to his history. He enters the hospital with respiratory distress, gross hemoptysis related to bronchial lung cancer and hypoxemia. He developed acute onset atrial fibrillation in the emergency room. I am asked to see him in consultation in this setting. He is not hemodynamically unstable with his arrhythmia. I am going to recommend starting him on sotalol in place of his metoprolol in hopes of restoring sinus rhythm since the AFib occurred acutely this morning in the emergency department. Unfortunately because of his gross hemoptysis he cannot be anticoagulated in my opinion. We will follow him with you while he is in the hospital his prognosis is obviously very poor and I would support the decision to make him a DNR patient but I will not lead that discussion since this is not primarily a cardiac issue. Cheng Blancas MD [facility] History of Present Illness History of Present Illness Consult date/time: 08/01/21 15:28 Consult reason: atrial fibrillation Reason For Visit: Acute respiratory failure with hypoxia/pneumonia/C Narrative: This is a pleasant but unfortunate 76-year-old man that seen this afternoon at the request of the hospitalist because of atrial fibrillation with rapid ventricular response. The patient has a history of coronary artery disease but no prior history of atrial fibrillation of which he is aware. He came to the hospital this morning because of shortness of breath and low oxygen saturation that he mentioned measured at his own home. The patient has a history of chronic lung disease and chronic advanced stage IV lung cancer he apparently he has non-small cell lung cancer that is known to be significantly metastatic and despite treatment with chemotherapy at [facility] he has had progressive disease. He in the emergency room initially was being evaluated in his chest CT demonstrates advancing metastatic disease. His when he arrived to the hospital this morning he was in sinus tachycardia while he was in the emergency room he developed atrial fib with RVR. He did not have any additional symptoms when this happened. Of course he was put on an intravenous diltiazem infusion and admitted to the hospital for further evaluation. He has a history of coronary artery disease and follows with a braille transcriber at [facility]. He underwent bypass surgery at [place] in 1995 and says he has been doing well since then with respect to his heart disease. He has not had any valvular problems or arrhythmias in the past. He is being seen in this setting in IMU you room 205. The patient is coughing and into a Kleenex while he is providing this history to me and he is obviously experiencing gross hemoptysis. He is anemic with a hemoglobin of about 8.5. He is being seen in this setting in consultation. His home baseline medical regimen in includes aspirin, atorvastatin, lisinopril and metoprolol. He states that his oncologist at [facility] has spoken to him about the possibility of trying a new chemotherapy investigational protocol. Despite all of this he is a full code patient. Review of Systems Constitutional: Constitutional: Reports weakness Eyes: Eyes: Reports no additional eye complaints ENT: Reports system reviewed and no additional complaints, except as documented Cardiovascular: Cardiovascular: Reports no additional cardiovascular complaints Respiratory: Respiratory: Reports hemoptysis and Reports dyspnea Gastrointestinal: Gastrointestinal: Reports no additional gastrointestinal complaints Musculoskeletal: Musculoskeletal: Reports no additional musculoskeletal complaints Neurologic: Reports system reviewed and no additional complaints, except as documented Psychiatric: Psychiatric: Reports no additional psychiatric complaints Endocrine: Endoc
--- NOTE | 2021-08-01 16:02 | ADMGEN ---
This patient, Hao Call, was admitted to IMU Room 205-01. Patient/family oriented to hospital policies and general routines including ID bracelet, bed and alarms, visiting hours, pain management, procedures, bathroom and other care routines, personal items, smoking policy, room service/diet, and visiting hours. Information on how to activate the Rapid Response Team has been discussed. Patient/Family are encouraged to report perceived risks to care and to ask questions if they do not understand what they are told or what they should do.
[2021-08-01 16:10] LABS: Glucose Point of Care 158 mg/dl (65-105)
[2021-08-01] MEDS: SOTALOL HCL 80 MG TABLET PO (16:22)
--- NOTE | 2021-08-01 17:09 | PM.CNPUL ---
Assessment and Plan Assessment and plan (1) Lung cancer: Qualifiers: Laterality: unspecified laterality Lung location: unspecified part of lung Qualified Code(s): C34.90 - Malignant neoplasm of unspecified part of unspecified bronchus or lung Code(s): C34.90 - Malignant neoplasm of unspecified part of unspecified bronchus or lung Status: Acute Assessment and Plan: 76 year old unfortunate man with terminal non-small cell lung metastatic cancer, with known metastasis to liver, multiple lung nodules increasing in size over the last 2 months, marked hilar and mediastinal lymphadenopathy, also a right lower lobe mass previously invading diaphragm on a PET scan with worsening on latest chest imaging studies, currently receiving chemotherapy at a local cancer center. He presented with hemoptysis hypoxemia and atrial fibrillation. Chest CT in addition to his lung cancer showed new infiltrates/consolidation at bases bilaterally which could be due to pneumonia. It is unclear whether the patient's hemoptysis is related to pneumonia or to lung cancer with possible invasion of vascular structures. At this point his hemoptysis does not appear to be life threatening. If hemoptysis is related to invasion of vascular structures than he is at risk to develop massive hemoptysis. Plan was discussed with the hospitalist. Patient will be on antibiotics, vancomycin, cefepime and Zithromax for pneumonia. Will discontinue Lovenox and monitor respiratory status and gas exchange. We will get venous study of the lower extremities. Patient is a candidate for hospice care unless his oncologist has a different opinion. I would suggest to check with his oncologist regarding prognosis and possible hospice care. (2) Hemoptysis: Code(s): R04.2 - Hemoptysis Status: Acute (3) Pneumonia: Qualifiers: Pneumonia type: due to unspecified organism Laterality: bilateral Lung location: unspecified part of lung Qualified Code(s): J18.9 - Pneumonia, unspecified organism Code(s): J18.9 - Pneumonia, unspecified organism Status: Acute (4) Atrial fibrillation with rapid ventricular response: Code(s): I48.91 - Unspecified atrial fibrillation Status: Acute (5) Non-small cell cancer of right lung: Code(s): C34.91 - Malignant neoplasm of unspecified part of right bronchus or lung Status: Acute History of Present Illness History of Present Illness Consult date: 08/01/21 Chief complaint: Acute respiratory failure with hypoxia/pneumonia/C Narrative: This 76-year-old man presented with a 2 day history of increasing shortness of breath and hemoptysis. The patient has a known history of metastatic lung cancer. He was 1st diagnosed with right upper lobe non small cell cancer in November of 2017 and since then he has received multiple treatments. He initially received concurrent chemoradiation followed by other chemotherapy schemes. the patient is currently receiving treatment for metastatic non-small cell lung cancer at the [facility]. patient stated that he always has shortness of breath on exertion. Over the last 2 days, he has noticed increasing shortness of breath and also cough and hemoptysis. He has been coughing up phlegm yellow mixed with blood and since he came to the hospital he is coughing up just blood. patient could not provide an estimate of the amount of blood he has coughed over the last 24 hours. He denied having fever chills chest pain. He has got chronic orthopnea, unable to sleep flat. While in the hospital the patient was found to have atrial fibrillation and was evaluated by Cardiology. He received Lovenox 80 mg subQ but this has been discontinued. Review of previous chest CTs showed that the patient has extensive metastatic lung cancer with multiple lung nodules bilaterally that have grown since April of 2021, previous right lower lobe mass that was found to invade the di
--- NOTE | 2021-08-01 17:26 | PM.IMPN ---
Progress Note: A&P Assessment and Plan (1) Atrial fibrillation with rapid ventricular response: Code(s): I48.91 - Unspecified atrial fibrillation Status: Acute (2) Acute respiratory failure with hypoxia: Code(s): J96.01 - Acute respiratory failure with hypoxia Status: Acute (3) Pneumonia: Qualifiers: Laterality: unspecified laterality Lung location: unspecified part of lung Pneumonia type: due to unspecified organism Qualified Code(s): J18.9 - Pneumonia, unspecified organism Code(s): J18.9 - Pneumonia, unspecified organism Status: Acute (4) Lung cancer: Qualifiers: Laterality: unspecified laterality Lung location: unspecified part of lung Qualified Code(s): C34.90 - Malignant neoplasm of unspecified part of unspecified bronchus or lung Code(s): C34.90 - Malignant neoplasm of unspecified part of unspecified bronchus or lung Status: Acute (5) DM2 (diabetes mellitus, type 2): Qualifiers: Diabetes mellitus termite renewal inspector insulin use: without termite renewal inspector use Diabetes mellitus complication status: without complication Qualified Code(s): E11.9 - Type 2 diabetes mellitus without complications Code(s): E11.9 - Type 2 diabetes mellitus without complications Status: Chronic (6) Congestive heart failure: Qualifiers: Heart failure type: unspecified Heart failure chronicity: chronic Qualified Code(s): I50.9 - Heart failure, unspecified Code(s): I50.9 - Heart failure, unspecified Status: Chronic Additional Plan # acute hypoxic respiratory failure CTA negative for PE but noted bilateral pneumonia. Started on vancomycin and cefepime along with azithromycin for atypical coverage. Blood culture has been ordered which is pending. Nebs treatment as ordered # hemoptysis mild to moderate will consult Pulmonary # chronic COPD # coronary artery disease status post CABG 1984 # atrial fibrillation with rapid ventricular rate on Cardizem drip. Cardiology has been consulted from the ER. Not a candidate for anticoagulation due to hemoptysis # diabetes mellitus type 2 on oral hypoglycemic agent at home. SSI added here # hyperlipidemia # hypertension # stage IV metastatic lung cancer currently on chemotherapy regimen follows up with [facility] on experimental drug. # DVT prophylaxis SCDs pharmacologic anticoagulation discontinued due to hemoptysis # code status discussed his chronic illness and advanced cancer brought up discussion of hospice care. Discussed code status as well he states that he does not want to be on life support however wants to be attempted on with resuscitative measures. 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 The patient reported chronically short of breath due to his history of lung cancer and COPD. He still smokes 2 cigarettes a day and chews a 3rd of a can of tobacco a day. However today when he was leaving work he became markedly short of breath. His oxygen saturations dropped into the 70s when he checked them at home. So he in drove himself to the ER. On arrival to the ER the patient was satting 85% on room air. The patient reports that he has a chronic cough but does not think it has changed much from baseline. His cough is occasionally productive of white yellow and or green sputum but again this is unchanged from baseline. He he does note that his breath sounds have been more course and rattling. He denies any recent ill contacts. He did received the Moderna COVID vaccine as well as his booster. He denies having any fevers or chills. He reports that his last chemotherap
--- NOTE | 2021-08-01 18:42 | ECG_ITS ---
Measurements Intervals [place] Rate: 98 P: SD: 0 QRS: 52 QRSD: 77 T: -1 QT: 341 QTc: 437 Interpretive Statements ATRIAL FIBRILLATION CANNOT RULE OUT SEPTAL INFARCT, AGE INDETERMINATE BORDERLINE ST-T WAVE ABNORMALITY- INFERIOR LEADS BASELINE ARTIFACT- I, II, III, AVR, AVL, AVF, V1-V6 ABNORMAL ECG Electronically Signed On 08-01-2021 20:12:47 [employer] by Avinash Worthy D.O.
[2021-08-01] MEDS: POTASSIUM CHLORIDE 10 MEQ TABLET.ER 20 MEQ PO (19:04)
--- NOTE | 2021-08-01 19:23 | PC.NURSE ---
EKG QR/QTC 341/[id number] 08-01-21 19:01
[2021-08-01] MEDS: ATORVASTATIN 40 MG TABLET 80 MG PO (20:49)
[2021-08-01] MEDS: KETOROLAC 30 MG/ML VIAL (*BKC) 15 MG IV PUSH (20:49)
[2021-08-01] MEDS: traZODone HCL 50 MG TABLET 100 MG PO (21:36)
[2021-08-01] MEDS: traMADol HCL (*CRX) 50 MG TABLET PO (21:36)
[2021-08-01 22:46] LABS: Glucose Point of Care 141 mg/dl (65-105)
[2021-08-02] VITALS (25 sets, daily range): BP systolic 100–144; BP diastolic 51–81; PULSE 69–88; RESP 18–26; TEMP 36.4–37; O2SAT 87–98
--- NOTE | 2021-08-02 00:04 | PCRCNOTE ---
Window of time for administration has passed. See next scheduled administration.
[2021-08-02] MEDS: CEFEPIME 2 GM in DEXTROSE 5% IN WATER 50 ML IVPB ×4 (00:38→23:41)
[2021-08-02] MEDS: IPRATROPIUM BR 0.02% INH SOLN 0.5 MG/2.5 ML VIAL INHALATION ×4 (04:12→22:13)
[2021-08-02] MEDS: SOTALOL HCL 80 MG TABLET PO ×2 (05:57→17:04)
[2021-08-02] MEDS: LACTATED RINGERS 1,000 ML 80 ML IV CONT ×2 (05:57→21:22)
[2021-08-02 06:08] LABS: Basophils Absolute Auto 0.1 K/mm3 (0.0-0.1); Basophils Percent Auto 0.6 % (0.2-1.2); Eosinophils Absolute Auto 0.3 K/mm3 (0-0.3); Eosinophils Percent Auto 2.6 % (0-4.4); Hematocrit 27.1 % (42.0-52.0); Hemoglobin 8.6 g/dL (14.0-18.0); Immature Granulocyte Absolute 0.06 K/mm3 (0.00-0.031); Immature Granulocyte Percent A 0.5 % (0-0.5); Lymphocytes Absolute Auto 0.64 K/mm3 (0.9-3.2); Lymphocytes Percent Auto 5.3 % (18.3-44.2); Mean Corpuscular HGB Conc 31.7 g/dl (32-36); Mean Corpuscular Hemoglobin 27.2 pg (26-34); Mean Corpuscular Volume 85.8 fl (80-100); Mean Platelet Volume 12.5 fl (7.4-10.4); Monocytes Absolute Auto 1.3 K/mm3 (0.1-0.6); Monocytes Percent Auto 10.6 % (2.6-8.5); Neutrophils Absolute Auto 9.8 K/mm3 (1.3-6.7); Neutrophils Percent Auto 80.4 % (45.5-73.1); Platelet Count Result 133 k/mm3 (150-375); Red Blood Count 3.16 M/mm3 (4.6-6.20); Red Cell Distribution Width 14.6 % (11.5-14.5); White Blood Count 12.1 K/mm3 (4.5-10.0)
[2021-08-02 06:23] LABS: Anion Gap 7 mmol/L (8-16); Blood Urea Nitrogen 30 mg/dL (9-20); Calcium 8.9 mg/dL (8.4-10.2); Carbon Dioxide 29 mmol/L (22-30); Chloride 98 mmol/L (98-107); Estimated CRCL calculation 67 ml/min; Estimated Glomerular Filt Rate > 60; Glucose 112 mg/dL (65-110); Magnesium 1.8 mg/dL (1.6-2.3); Potassium 4.3 mmol/L (3.4-5.0); Sodium 134 mmol/L (137-145)
--- NOTE | 2021-08-02 08:00 | ECG_ITS ---
Measurements Intervals [place] Rate: 73 P: 76 MI: 130 QRS: 61 QRSD: 89 T: 76 QT: 428 QTc: 474 Interpretive Statements SINUS RHYTHM BORDERLINE T WAVE ABNORMALITY- HIGH LATERAL LEADS BASELINE ARTIFACT- I, II, III, AVR, AVL, V1-V2, V4-V6 BORDERLINE ECG Electronically Signed On 08-02-2021 12:26:27 TECHNICAL ADJUSTER by Avinash Worthy D.O.
[2021-08-02] MEDS: FERROUS SULFATE 324 MG TABLET PO (08:20)
[2021-08-02] MEDS: POTASSIUM CHLORIDE 10 MEQ TABLET.ER 20 MEQ PO ×2 (08:21→17:04)
[2021-08-02] MEDS: MAGNESIUM OXIDE 400 MG TABLET PO (08:21)
[2021-08-02 09:23] LABS: Glucose Point of Care 134 mg/dl (65-105)
--- NOTE | 2021-08-02 10:57 | PM.PNCARD ---
Progress Note: A&P Assessment and Plan (1) Atrial fibrillation with rapid ventricular response: Code(s): I48.91 - Unspecified atrial fibrillation Status: Acute Assessment and Plan: Converted to sinus rhythm on sotalol. Continue 12 lead EKG for dosing to monitor QT corrected interval. Stable earlier today 472 milliseconds. If further prolongation may need to reduce and or if over 500 milliseconds discontinue sotalol. Monitor electrolytes closely. Not on anticoagulation due to hemoptysis. Ideally would recommend given risk factors when okay. Continue telemetry while on sotalol. First dose a.m. 08/02/2021. (2) Hemoptysis: Code(s): R04.2 - Hemoptysis Status: Acute Assessment and Plan: Resolved as he reports thus far. (3) Encounter for monitoring sotalol therapy: Code(s): Z51.81 - Encounter for therapeutic drug level monitoring; Z79.899 - Other terminal clerk (current) drug therapy Status: Acute Assessment and Plan: As above. QT stable. Continue sotalol 80 mg q.12 hours. (4) CAD (coronary artery disease): Code(s): I25.10 - Atherosclerotic heart disease of [place] coronary artery without angina pectoris Status: Chronic Assessment and Plan: No anginal symptoms. Stable. Continue medical therapy atorvastatin. Off antiplatelet therapy due to hemoptysis. (5) Pneumonia: Qualifiers: Pneumonia type: due to unspecified organism Laterality: bilateral Lung location: unspecified part of lung Qualified Code(s): J18.9 - Pneumonia, unspecified organism Code(s): J18.9 - Pneumonia, unspecified organism Status: Acute Assessment and Plan: Continue IV antibiotics, respiratory support. (6) Acute respiratory failure with hypoxia: Code(s): J96.01 - Acute respiratory failure with hypoxia Status: Acute Assessment and Plan: Improving. Management per primary service. Remains on oxygen supplementation. Subjective Date/time seen: Date of service: 08/02/21 10:57 Follow-up for CHF, atrial fibrillation, hemoptysis, history of CAD Feeling better. Denies chest pain. No palpitations. Shortness of breath improving remains on oxygen. Converted to sinus rhythm. Still somewhat weak and fatigued but improving. Review of Systems Constitutional: Constitutional: Reports weakness Eyes: Eyes: Reports no additional eye complaints ENT: Reports system reviewed and no additional complaints, except as documented Cardiovascular: Cardiovascular: Reports no additional cardiovascular complaints and Reports dyspnea Respiratory: Respiratory: Reports hemoptysis and Reports dyspnea Gastrointestinal: Gastrointestinal: Reports no additional gastrointestinal complaints Musculoskeletal: Musculoskeletal: Reports no additional musculoskeletal complaints Neurologic: Reports system reviewed and no additional complaints, except as documented and Reports weakness Psychiatric: Psychiatric: Reports no additional psychiatric complaints Endocrine: Endocrine: Reports no additional endocrine complaints Hematologic/Lymphatic: Hematologic/Lymphatic: Reports no additional hematologic/lymphatic complaints Allergic/Immunologic: Allergic/Immunologic: Reports no additional allergic/immunologic complaints Exam Const: General: no acute distress Other: Pleasant well-developed well-nourished white male seated in bed talking to his experiencing gross hemoptysis while I obtain his history HENMT: Mouth: Yes moist mucous membranes Eyes: Sclera: sclerae normal Pupils: Equal, round and reactive pupils present Neck: Neck: supple and no JVD Resp: Effort & Inspection: normal respiratory effort Auscultation: clear to auscultation bilaterally Cardio: Rate: regular rate Rhythm: regular rhythm Heart sounds: S1 normal heart sound present, S2 normal heart sound present and Other heart sounds present (Distant heart sounds) GI: Auscultation: normal bowel sounds
[2021-08-02 13:35] LABS: Glucose Point of Care 144 mg/dl (65-105)
[2021-08-02 16:59] LABS: Glucose Point of Care 158 mg/dl (65-105)
--- NOTE | 2021-08-02 17:33 | PM.IMPN ---
Progress Note: A&P Assessment and Plan (1) Atrial fibrillation with rapid ventricular response: Code(s): I48.91 - Unspecified atrial fibrillation Status: Acute (2) Acute respiratory failure with hypoxia: Code(s): J96.01 - Acute respiratory failure with hypoxia Status: Acute (3) Pneumonia: Qualifiers: Laterality: unspecified laterality Lung location: unspecified part of lung Pneumonia type: due to unspecified organism Qualified Code(s): J18.9 - Pneumonia, unspecified organism Code(s): J18.9 - Pneumonia, unspecified organism Status: Acute (4) Lung cancer: Qualifiers: Laterality: unspecified laterality Lung location: unspecified part of lung Qualified Code(s): C34.90 - Malignant neoplasm of unspecified part of unspecified bronchus or lung Code(s): C34.90 - Malignant neoplasm of unspecified part of unspecified bronchus or lung Status: Acute (5) DM2 (diabetes mellitus, type 2): Qualifiers: Diabetes mellitus long term care pharmacist insulin use: without long term care pharmacist use Diabetes mellitus complication status: without complication Qualified Code(s): E11.9 - Type 2 diabetes mellitus without complications Code(s): E11.9 - Type 2 diabetes mellitus without complications Status: Chronic (6) Congestive heart failure: Qualifiers: Heart failure type: unspecified Heart failure chronicity: chronic Qualified Code(s): I50.9 - Heart failure, unspecified Code(s): I50.9 - Heart failure, unspecified Status: Chronic Additional Plan # acute hypoxic respiratory failure CTA negative for PE but noted bilateral pneumonia. Started on vancomycin and cefepime along with azithromycin for atypical coverage. Blood culture no growth so far. Nebs treatment as ordered # hemoptysis mild to moderate will consult Pulmonary. Discussed with Pulmonary. Hemoptysis has resolved Lovenox on hold # chronic COPD # coronary artery disease status post CABG 1984 # atrial fibrillation with rapid ventricular rate on Cardizem drip. Cardiology has been consulted from the ER. Not a candidate for anticoagulation due to hemoptysis started on sotalol by a Cardiology heart rate is improved # diabetes mellitus type 2 on oral hypoglycemic agent at home. SSI added here. Blood sugar at go # hyperlipidemia # hypertension: Stable # stage IV metastatic lung cancer currently on chemotherapy regimen follows up with [facility] on experimental drug. # DVT prophylaxis SCDs pharmacologic anticoagulation discontinued due to hemoptysis # code status discussed his chronic illness and advanced cancer brought up discussion of hospice care. Discussed code status as well he states that he does not want to be on life support however wants to be attempted on with resuscitative measures. He also states he has power assistant district attorney which is his who is at bedside during the discussion Subjective Date/time seen: 08/02/21 17:33 Interval history: HPI:76-year-old male with a past medical history of coronary artery disease status post CABG, CHF stage IV non-small cell lung cancer, and COPD who presented to the ER with increased shortness of breath that started today. The patient reported chronically short of breath due to his history of lung cancer and COPD. He still smokes 2 cigarettes a day and chews a 3rd of a can of tobacco a day. However today when he was leaving work he became markedly short of breath. His oxygen saturations dropped into the 70s when he checked them at home. So he in drove himself to the ER. On arrival to the ER the patient was satting 85% on room air. The patient reports that he has a chronic cough but does not think it has changed much from baseline. His cough is occasionally productive of white yellow and or green sputum but again this is unchanged from baseline. He he does note that his breath sounds have been more course and rattling. He denies any recent ill contacts. He
--- NOTE | 2021-08-02 18:45 | PM.PNPUL ---
Progress Note: A&P Assessment and Plan (1) Lung cancer: Qualifiers: Laterality: unspecified laterality Lung location: unspecified part of lung Qualified Code(s): C34.90 - Malignant neoplasm of unspecified part of unspecified bronchus or lung Code(s): C34.90 - Malignant neoplasm of unspecified part of unspecified bronchus or lung Status: Acute Assessment and Plan: 76 year old unfortunate man with terminal non-small cell lung metastatic cancer, with known metastasis to liver, multiple lung nodules increasing in size over the last 2 months, marked hilar and mediastinal lymphadenopathy, and a right lower lobe mass previously invading diaphragm on a PET scan with worsening on latest chest imaging studies, currently receiving chemotherapy at a local cancer center. He presented with hemoptysis, hypoxemia and atrial fibrillation. Chest CT in addition to his lung cancer showed new infiltrates/consolidation at bases bilaterally which could be due to pneumonia. It is unclear whether the patient's hemoptysis is related to pneumonia or to lung cancer with possible invasion of vascular structures. At this point his hemoptysis does not appear to be life threatening. If hemoptysis is related to invasion of vascular structures than he is at risk to develop massive hemoptysis. He feels better and has less hemoptysis on antibiotics, vancomycin, cefepime and Zithromax for pneumonia. Lovenox was stopped.LE venous study of the lower extremities negative for DVT. Patient is a candidate for hospice care unless his oncologist has a different opinion. His oncologist will be the best resource for prognosis and possible hospice recommendation. (2) Hemoptysis: Code(s): R04.2 - Hemoptysis Status: Acute Assessment and Plan: Improved. (3) Pneumonia: Qualifiers: Laterality: bilateral Lung location: unspecified part of lung Pneumonia type: due to unspecified organism Qualified Code(s): J18.9 - Pneumonia, unspecified organism Code(s): J18.9 - Pneumonia, unspecified organism Status: Acute Assessment and Plan: New infiltrates, on antibiotics, cefepine and vanco. Coag neg staph in blood culture Dec , possible contaminant. (4) Atrial fibrillation with rapid ventricular response: Code(s): I48.91 - Unspecified atrial fibrillation Status: Acute Assessment and Plan: Diltiazem drip started, then converted to NSR on sotolol. Followed by Cardiology. Subjective Date/time seen: 08/02/21 18:45 Hao Call is 76-year-old, admitted with 2 day history of increasing shortness of breath and hemoptysis. The patient has a known history of metastatic lung cancer. He has had little hemoptysis, and his shortness of breath is improved. 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 He initially received concurrent chemoradiation followed by other chemotherapy schemes. He is currently receiving treatment for metastatic non-small cell lung cancer at the [facility]. He always has shortness of breath on exertion. Over the last 2 days, he has noticed increasing shortness of breath and also cough and hemoptysis. He has been coughing up phlegm yellow mixed with blood and since he came to the hospital, he is coughing up just blood. He could not estimate of the amount of blood he prior to admission. He denied having fever chills chest pain. He has chronic orthopnea, unable to sleep flat. While in the hospital the patient was found to have atrial fibrillation and was evaluated by Cardiology. He received Lovenox 80 mg subQ but this has been discont
--- NOTE | 2021-08-02 19:30 | ECG_ITS ---
Measurements Intervals [place] Rate: 72 P: 63 ME: 137 QRS: 48 QRSD: 84 T: 55 QT: 427 QTc: 467 Interpretive Statements SINUS RHYTHM BASELINE ARTIFACT- V4-V6 NORMAL ECG Electronically Signed On 08-03-2021 7:02:30 YARROW GATHERER by Avinash Worthy D.O.
[2021-08-02 21:18] LABS: Glucose Point of Care 123 mg/dl (65-105)
[2021-08-02] MEDS: ATORVASTATIN 40 MG TABLET 80 MG PO (21:21)
[2021-08-02] MEDS: traZODone HCL 50 MG TABLET 100 MG PO (21:22)
[2021-08-03] VITALS (25 sets, daily range): BP systolic 131–143; BP diastolic 51–75; PULSE 70–88; RESP 16–24; TEMP 36.3–37; O2SAT 90–97
[2021-08-03] MEDS: IPRATROPIUM BR 0.02% INH SOLN 0.5 MG/2.5 ML VIAL INHALATION ×4 (02:56→21:34)
[2021-08-03] MEDS: SOTALOL HCL 80 MG TABLET PO ×2 (05:59→18:08)
--- NOTE | 2021-08-03 06:20 | PC.NURSE ---
Last QTc on EKG at 2128, 08/02/21 is 450. 0600 dose of Sotalol 80mg given, 08/03/21.
[2021-08-03 07:11] LABS: Basophils Absolute Auto 0.1 K/mm3 (0.0-0.1); Basophils Percent Auto 0.7 % (0.2-1.2); Eosinophils Absolute Auto 0.4 K/mm3 (0-0.3); Eosinophils Percent Auto 3.2 % (0-4.4); Hematocrit 29.5 % (42.0-52.0); Hemoglobin 9.4 g/dL (14.0-18.0); Immature Granulocyte Absolute 0.07 K/mm3 (0.00-0.031); Immature Granulocyte Percent A 0.6 % (0-0.5); Lymphocytes Absolute Auto 0.62 K/mm3 (0.9-3.2); Lymphocytes Percent Auto 5.1 % (18.3-44.2); Mean Corpuscular HGB Conc 31.9 g/dl (32-36); Mean Corpuscular Hemoglobin 26.6 pg (26-34); Mean Corpuscular Volume 83.6 fl (80-100); Mean Platelet Volume 12.7 fl (7.4-10.4); Monocytes Absolute Auto 1.1 K/mm3 (0.1-0.6); Monocytes Percent Auto 8.6 % (2.6-8.5); Neutrophils Percent Auto 81.8 % (45.5-73.1); Platelet Count Result 147 k/mm3 (150-375); Red Blood Count 3.53 M/mm3 (4.6-6.20); Red Cell Distribution Width 14.6 % (11.5-14.5); White Blood Count 12.2 K/mm3 (4.5-10.0)
[2021-08-03 07:22] LABS: Anion Gap 9 mmol/L (8-16); Blood Urea Nitrogen 23 mg/dL (9-20); Calcium 9.2 mg/dL (8.4-10.2); Carbon Dioxide 29 mmol/L (22-30); Chloride 97 mmol/L (98-107); Estimated CRCL calculation 67 ml/min; Estimated Glomerular Filt Rate > 60; Glucose 124 mg/dL (65-110); Magnesium 1.8 mg/dL (1.6-2.3); Potassium 4.5 mmol/L (3.4-5.0); Sodium 135 mmol/L (137-145)
--- NOTE | 2021-08-03 08:00 | ECG_ITS ---
Measurements Intervals [place] Rate: 75 P: 68 WV: 135 QRS: 59 QRSD: 82 T: 34 QT: 392 QTc: 440 Interpretive Statements SINUS RHYTHM LOW QRS VOLTAGE IN LIMB LEADS CANNOT RULE OUT SEPTAL INFARCT, AGE INDETERMINATE BASELINE ARTIFACT- I, III, AVR, AVL, AVF ABNORMAL ECG Electronically Signed On 08-03-2021 17:01:24 DIESEL ELECTRICIAN by Avinash Worthy D.O.
[2021-08-03] MEDS: MAGNESIUM OXIDE 400 MG TABLET PO (08:04)
[2021-08-03] MEDS: POTASSIUM CHLORIDE 10 MEQ TABLET.ER 20 MEQ PO ×2 (08:04→18:08)
[2021-08-03] MEDS: FERROUS SULFATE 324 MG TABLET PO (08:05)
[2021-08-03] MEDS: CEFEPIME 2 GM in DEXTROSE 5% IN WATER 50 ML IVPB ×2 (08:08→16:35)
[2021-08-03 09:50] LABS: Glucose Point of Care 132 mg/dl (65-105)
--- NOTE | 2021-08-03 10:55 | PM.IMPN ---
Progress Note: A&P Assessment and Plan (1) Atrial fibrillation with rapid ventricular response: Code(s): I48.91 - Unspecified atrial fibrillation Status: Acute (2) Acute respiratory failure with hypoxia: Code(s): J96.01 - Acute respiratory failure with hypoxia Status: Acute (3) Pneumonia: Qualifiers: Laterality: unspecified laterality Lung location: unspecified part of lung Pneumonia type: due to unspecified organism Qualified Code(s): J18.9 - Pneumonia, unspecified organism Code(s): J18.9 - Pneumonia, unspecified organism Status: Acute (4) Lung cancer: Qualifiers: Laterality: unspecified laterality Lung location: unspecified part of lung Qualified Code(s): C34.90 - Malignant neoplasm of unspecified part of unspecified bronchus or lung Code(s): C34.90 - Malignant neoplasm of unspecified part of unspecified bronchus or lung Status: Acute (5) DM2 (diabetes mellitus, type 2): Qualifiers: Diabetes mellitus terminal computer operator insulin use: without terminal computer operator use Diabetes mellitus complication status: without complication Qualified Code(s): E11.9 - Type 2 diabetes mellitus without complications Code(s): E11.9 - Type 2 diabetes mellitus without complications Status: Chronic (6) Congestive heart failure: Qualifiers: Heart failure type: unspecified Heart failure chronicity: chronic Qualified Code(s): I50.9 - Heart failure, unspecified Code(s): I50.9 - Heart failure, unspecified Status: Chronic Additional Plan # acute hypoxic respiratory failure CTA negative for PE but noted bilateral pneumonia. Started on vancomycin and cefepime along with azithromycin for atypical coverage. Blood culture no growth so far. Nebs treatment as ordered Sputum culture pending # Lower extremity edema will give a dose of Lasix today venous Doppler is negative for DVT # hemoptysis mild to moderate will consult Pulmonary. Discussed with Pulmonary. Hemoptysis has resolved Lovenox on hold # chronic COPD # coronary artery disease status post CABG 1984 # atrial fibrillation with rapid ventricular rate on Cardizem drip. Cardiology has been consulted from the ER. Not a candidate for anticoagulation due to hemoptysis started on sotalol by a Cardiology heart rate is improved # diabetes mellitus type 2 on oral hypoglycemic agent at home. SSI added here. Blood sugar at cold # hyperlipidemia # hypertension: Stable # stage IV metastatic lung cancer currently on chemotherapy regimen follows up with [facility] on experimental drug. # bacteremia with coag-negative staph likely a contamination also on vancomycin already # DVT prophylaxis SCDs pharmacologic anticoagulation discontinued due to hemoptysis # code status discussed his chronic illness and advanced cancer brought up discussion of hospice care. Discussed code status as well he states that he does not want to be on life support however wants to be attempted on with resuscitative measures. He also states he has power employment law attorney which is his who is at bedside during the discussion Subjective Date/time seen: 08/03/21 10:55 Interval history: HPI:76-year-old male with a past medical history of coronary artery disease status post CABG, CHF stage IV non-small cell lung cancer, and COPD who presented to the ER with increased shortness of breath that started today. The patient reported chronically short of breath due to his history of lung cancer and COPD. He still smokes 2 cigarettes a day and chews a 3rd of a can of tobacco a day. However today when he was leaving work he became markedly short of breath. His oxygen saturations dropped into the 70s when he checked them at home. So he in drove himself to the ER. On arrival to the ER the patient was satting 85% on room air. The patient reports that he has a chronic cough but does not think it has changed much from baseline. His cough is occasionally p
[2021-08-03] MEDS: FUROSEMIDE INJ 40 MG/4 ML VIAL IV PUSH (11:14)
[2021-08-03 13:18] LABS: Glucose Point of Care 183 mg/dl (65-105)
--- NOTE | 2021-08-03 13:56 | PM.PNCARD ---
Progress Note: A&P Assessment and Plan (1) Atrial fibrillation with rapid ventricular response: Code(s): I48.91 - Unspecified atrial fibrillation Status: Acute Assessment and Plan: Converted to sinus rhythm on sotalol. Continue 12 lead EKG for dosing to monitor QT corrected interval. QT interval without evidence of toxicity for 440 milliseconds. If significant prolongation may need to reduce and or stop sotalol. Monitor electrolytes closely. Not on anticoagulation due to hemoptysis. Ideally would recommend given risk factors when okay. Continue telemetry while on sotalol. First dose a.m. 08/02/2021. (2) Hemoptysis: Code(s): R04.2 - Hemoptysis Status: Acute Assessment and Plan: Resolved as he reports thus far. Appreciate pulmonology involvement and recommendations. (3) Encounter for monitoring sotalol therapy: Code(s): Z51.81 - Encounter for therapeutic drug level monitoring; Z79.899 - Other termination clerk (current) drug therapy Status: Acute Assessment and Plan: As above. QT stable 440 milliseconds. Continue sotalol 80 mg q.12 hours. (4) CAD (coronary artery disease): Code(s): I25.10 - Atherosclerotic heart disease of [place] coronary artery without angina pectoris Status: Chronic Assessment and Plan: No anginal symptoms. Stable. Continue medical therapy atorvastatin. Off antiplatelet therapy due to hemoptysis. (5) Pneumonia: Qualifiers: Pneumonia type: due to unspecified organism Laterality: bilateral Lung location: unspecified part of lung Qualified Code(s): J18.9 - Pneumonia, unspecified organism Code(s): J18.9 - Pneumonia, unspecified organism Status: Acute Assessment and Plan: Continue IV antibiotics, respiratory support. (6) Acute respiratory failure with hypoxia: Code(s): J96.01 - Acute respiratory failure with hypoxia Status: Acute Assessment and Plan: Improving. Management per primary service. Remains on oxygen supplementation. Subjective Date/time seen: Date of service: 08/03/21 13:56 Follow-up for atrial fibrillation, sotalol load, CAD Patient states he is doing about the same. Denies recurrent hemoptysis. No chest pain palpitations. Maintaining sinus rhythm. QT interval stable on sotalol. Patient complains of fatigue, shortness of breath with any activity. Review of Systems Review of Systems: All systems reviewed & are unremarkable except as noted in HPI and below Constitutional: Constitutional: Reports as per HPI and Reports weakness Eyes: Eyes: Reports as per HPI and Reports no additional eye complaints ENT: Reports system reviewed and no additional complaints, except as documented and Reports as per HPI Cardiovascular: Cardiovascular: Reports as per HPI, Reports no additional cardiovascular complaints and Reports dyspnea Respiratory: Respiratory: Reports as per HPI, Reports hemoptysis and Reports dyspnea Gastrointestinal: Gastrointestinal: Reports as per HPI and Reports no additional gastrointestinal complaints Musculoskeletal: Musculoskeletal: Reports no additional musculoskeletal complaints and Reports as per HPI Neurologic: Reports system reviewed and no additional complaints, except as documented, Reports as per HPI and Reports weakness Psychiatric: Psychiatric: Reports no additional psychiatric complaints and Reports as per HPI Endocrine: Endocrine: Reports no additional endocrine complaints and Reports as per HPI Hematologic/Lymphatic: Hematologic/Lymphatic: Reports no additional hematologic/lymphatic complaints and Reports as per HPI Allergic/Immunologic: Allergic/Immunologic: Reports no additional allergic/immunologic complaints Exam Const: General: no acute distress Other: Pleasant well-developed well-nourished white male seated in bed talking to his experiencing gross hemoptysis while I obtain his history HENMT: Mouth: Yes moist mucous membranes
--- NOTE | 2021-08-03 15:10 | PM.PNPUL ---
Progress Note: A&P Assessment and Plan (1) Lung cancer: Qualifiers: Laterality: unspecified laterality Lung location: unspecified part of lung Qualified Code(s): C34.90 - Malignant neoplasm of unspecified part of unspecified bronchus or lung Code(s): C34.90 - Malignant neoplasm of unspecified part of unspecified bronchus or lung Status: Acute Assessment and Plan: 76 year old unfortunate man with terminal non-small cell lung metastatic cancer, with known metastasis to liver, multiple lung nodules increasing in size over the last 2 months, marked hilar and mediastinal lymphadenopathy, and a right lower lobe mass previously invading diaphragm on a PET scan with worsening on latest chest imaging studies, currently receiving chemotherapy at a local cancer center. He presented with hemoptysis, hypoxemia and atrial fibrillation. Chest CT in addition to his lung cancer showed new infiltrates/consolidation at bases bilaterally which could be due to pneumonia. It is unclear whether the patient's hemoptysis is related to pneumonia or to lung cancer with possible invasion of vascular structures. At this point his hemoptysis does not appear to be life threatening. If hemoptysis is related to invasion of vascular structures than he is at risk to develop massive hemoptysis. He feels better and has less hemoptysis on antibiotics, vancomycin, cefepime and Zithromax for pneumonia. Lovenox was stopped.LE venous study of the lower extremities negative for DVT. Patient is a candidate for hospice care unless his oncologist has a different opinion. His oncologist will be the best resource for prognosis and possible hospice recommendation. (2) Hemoptysis: Code(s): R04.2 - Hemoptysis Status: Acute Assessment and Plan: Improved. (3) Pneumonia: Qualifiers: Laterality: bilateral Lung location: unspecified part of lung Pneumonia type: due to unspecified organism Qualified Code(s): J18.9 - Pneumonia, unspecified organism Code(s): J18.9 - Pneumonia, unspecified organism Status: Acute Assessment and Plan: New infiltrates, on antibiotics, cefepine and vanco. Coag neg staph in blood culture Dec 2, possible contaminant. (4) Atrial fibrillation with rapid ventricular response: Code(s): I48.91 - Unspecified atrial fibrillation Status: Acute Assessment and Plan: Diltiazem drip started, then converted to NSR on sotolol. Followed by Cardiology. Subjective Date/time seen: 08/03/21 15:10 Hao Call is 76-year-old, admitted with 2 day history of increasing shortness of breath and hemoptysis. The patient has a known history of metastatic lung cancer. He has had little hemoptysis, and his shortness of breath is improved. His is at the bedside. He looks so much better than he did initially. Dr Dc has treated him until recently when he enrolled in a trial through [facility]. Review of Systems Review of Systems: All systems reviewed & are unremarkable except as noted in HPI and below (HPI) Exam Narrative: GENERAL APPEARANCE: Well developed, well nourished, alert and cooperative, what appears to be mild respiratory distress while on supplemental oxygen and sitting up in bed. SKIN: Inspection of the skin reveals no rashes, ulcerations or petechiae. HEENT: Sclerae anicteric and conjunctivae pink and moist. Extraocular movements were intact and pupils were equal. The oral mucosa, hard and soft palate, tongue and posterior pharynx were normal. Edentulous. CHEST: Normal AP diameter and normal contour without any kyphoscoliosis. LUNGS: crackles at bases posteriorly greater on right. No wheezing CARDI
[2021-08-03 16:37] LABS: Glucose Point of Care 159 mg/dl (65-105)
--- NOTE | 2021-08-03 20:00 | ECG_ITS ---
Measurements Intervals [place] Rate: 71 P: 54 IL: 138 QRS: 45 QRSD: 92 T: 57 QT: 442 QTc: 482 Interpretive Statements SINUS RHYTHM DELAYED PRECORDIAL R/S TRANSITION PROLONGED QT INTERVAL ABNORMAL ECG Electronically Signed On 08-04-2021 5:31:41 REGIONAL SALES EXECUTIVE by Avinash Worthy D.O.
[2021-08-03] MEDS: traZODone HCL 50 MG TABLET 100 MG PO (20:39)
[2021-08-03] MEDS: ATORVASTATIN 40 MG TABLET 80 MG PO (20:39)
[2021-08-03 23:00] LABS: Glucose Point of Care 119 mg/dl (65-105)
[2021-08-04] VITALS (27 sets, daily range): BP systolic 114–148; BP diastolic 42–68; PULSE 69–102; RESP 18–20; TEMP 36.2–36.6; O2SAT 83–98
[2021-08-04] MEDS: CEFEPIME 2 GM in DEXTROSE 5% IN WATER 50 ML IVPB ×4 (00:01→23:33)
[2021-08-04] MEDS: IPRATROPIUM BR 0.02% INH SOLN 0.5 MG/2.5 ML VIAL INHALATION ×4 (02:47→20:00)
[2021-08-04] MEDS: SOTALOL HCL 80 MG TABLET PO ×2 (05:41→17:41)
[2021-08-04 06:11] LABS: Basophils Absolute Auto 0.1 K/mm3 (0.0-0.1); Basophils Percent Auto 0.8 % (0.2-1.2); Eosinophils Absolute Auto 0.4 K/mm3 (0-0.3); Eosinophils Percent Auto 3.2 % (0-4.4); Hematocrit 27.7 % (42.0-52.0); Hemoglobin 8.9 g/dL (14.0-18.0); Immature Granulocyte Absolute 0.08 K/mm3 (0.00-0.031); Immature Granulocyte Percent A 0.6 % (0-0.5); Lymphocytes Absolute Auto 0.84 K/mm3 (0.9-3.2); Lymphocytes Percent Auto 6.2 % (18.3-44.2); Mean Corpuscular HGB Conc 32.1 g/dl (32-36); Mean Corpuscular Hemoglobin 27.4 pg (26-34); Mean Corpuscular Volume 85.2 fl (80-100); Mean Platelet Volume 12.9 fl (7.4-10.4); Monocytes Absolute Auto 1.2 K/mm3 (0.1-0.6); Monocytes Percent Auto 8.8 % (2.6-8.5); Neutrophils Absolute Auto 10.9 K/mm3 (1.3-6.7); Neutrophils Percent Auto 80.4 % (45.5-73.1); Platelet Count Result 135 k/mm3 (150-375); Red Blood Count 3.25 M/mm3 (4.6-6.20); Red Cell Distribution Width 14.6 % (11.5-14.5); White Blood Count 13.6 K/mm3 (4.5-10.0)
[2021-08-04 06:18] LABS: Anion Gap 6 mmol/L (8-16); Blood Urea Nitrogen 25 mg/dL (9-20); Carbon Dioxide 30 mmol/L (22-30); Chloride 95 mmol/L (98-107); Estimated CRCL calculation 55 ml/min; Estimated Glomerular Filt Rate > 60; Glucose 145 mg/dL (65-110); Magnesium 1.7 mg/dL (1.6-2.3); Potassium 4.2 mmol/L (3.4-5.0); Sodium 131 mmol/L (137-145)
[2021-08-04 09:08] LABS: Glucose Point of Care 126 mg/dl (65-105)
[2021-08-04] MEDS: MAGNESIUM OXIDE 400 MG TABLET PO (09:23)
[2021-08-04] MEDS: POTASSIUM CHLORIDE 10 MEQ TABLET.ER 20 MEQ PO ×2 (09:23→17:41)
[2021-08-04] MEDS: FERROUS SULFATE 324 MG TABLET PO (09:23)
--- NOTE | 2021-08-04 10:02 | ECG_ITS ---
Measurements Intervals [place] Rate: 70 P: 66 [place]: 144 QRS: 57 QRSD: 79 T: 62 QT: 418 QTc: 451 Interpretive Statements SINUS RHYTHM BASELINE ARTIFACT- I, II, AVR, AVL, AVF, V4 NORMAL ECG Electronically Signed On 08-04-2021 10:22:25 CNC MILL OPERATOR by Avinash Worthy D.O.
--- NOTE | 2021-08-04 11:17 | PM.PNCARD ---
Progress Note: A&P Assessment and Plan (1) Atrial fibrillation with rapid ventricular response: Code(s): I48.91 - Unspecified atrial fibrillation Status: Acute Assessment and Plan: Converted to sinus rhythm on sotalol. Continue 12 lead EKG for dosing to monitor QT corrected interval. QT interval without evidence of toxicity at 451 milliseconds. If significant prolongation may need to reduce and or stop sotalol. Monitor electrolytes closely. Not on anticoagulation due to hemoptysis. Ideally would recommend given risk factors when okay. Continue telemetry while on sotalol. First dose a.m. 08/02/2021 - he has received first 5 doses. (2) Hemoptysis: Code(s): R04.2 - Hemoptysis Status: Acute Assessment and Plan: Resolved as he reports thus far. Appreciate pulmonology involvement and recommendations. (3) Encounter for monitoring sotalol therapy: Code(s): Z51.81 - Encounter for therapeutic drug level monitoring; Z79.899 - Other skilled nursing (current) drug therapy Status: Acute Assessment and Plan: As above. QT stable 451 milliseconds. Continue sotalol 80 mg q.12 hours. (4) CAD (coronary artery disease): Code(s): I25.10 - Atherosclerotic heart disease of [place] coronary artery without angina pectoris Status: Chronic Assessment and Plan: No anginal symptoms. Stable. Continue medical therapy atorvastatin. Off antiplatelet therapy due to hemoptysis. (5) Pneumonia: Qualifiers: Laterality: bilateral Lung location: unspecified part of lung Pneumonia type: due to unspecified organism Qualified Code(s): J18.9 - Pneumonia, unspecified organism Code(s): J18.9 - Pneumonia, unspecified organism Status: Acute Assessment and Plan: Continue IV antibiotics, respiratory support. (6) Acute respiratory failure with hypoxia: Code(s): J96.01 - Acute respiratory failure with hypoxia Status: Acute Assessment and Plan: Improving. Management per primary service. Remains on oxygen supplementation. Subjective Date/time seen: 08/04/21 11:17 Interval history: Follow-up for atrial fibrillation, sotalol load, CAD Patient states he is doing about the same. Denies recurrent hemoptysis. No chest pain palpitations. Maintaining sinus rhythm. QT interval stable on sotalol. Patient complains of fatigue, shortness of breath with any activity. Date of service 08/04/21: Feels about the same today. He does have some shortness of breath is baseline for him. No chest pain, palpitations. Maintaining sinus rhythm on sotalol-QTC stable to today. Review of Systems Review of Systems: All systems reviewed & are unremarkable except as noted in HPI and below Constitutional: Constitutional: Reports as per HPI and Reports weakness Eyes: Eyes: Reports as per HPI and Reports no additional eye complaints ENT: Reports system reviewed and no additional complaints, except as documented and Reports as per HPI Cardiovascular: Cardiovascular: Reports as per HPI, Reports no additional cardiovascular complaints and Reports dyspnea Respiratory: Respiratory: Reports as per HPI, Reports hemoptysis and Reports dyspnea Gastrointestinal: Gastrointestinal: Reports as per HPI and Reports no additional gastrointestinal complaints Musculoskeletal: Musculoskeletal: Reports no additional musculoskeletal complaints and Reports as per HPI Neurologic: Reports system reviewed and no additional complaints, except as documented, Reports as per HPI and Reports weakness Psychiatric: Psychiatric: Reports no additional psychiatric complaints and Reports as per HPI Endocrine: Endocrine: Reports no additional endocrine complaints and Reports as per HPI Hematologic/Lymphatic: Hematologic/Lymphatic: Reports no additional hematologic/lymphatic complaints and Reports as per HPI Allergic/Immunologic: Allergic/Immunologic: Reports no additional allergic/immunologic complaint
--- NOTE | 2021-08-04 12:39 | PDONCCN ---
HPI - Date of Consult Date/Time: 08/04/21 12:39 Requesting Physician: Felecia Kent DO Primary Care Provider: Eirk Rubi, - Consult Narrative Reason for consult: Metastatic non-small cell lung cancer Narrative: Hao Call is a 76 year old male metastatic non-small cell lung cancer with liver involvement along with history of coronary artery disease status post coronary artery bypass grafting. Patient was on chemotherapy with Gemzar and progressed and chemotherapy was discontinued in April of 2021. He was referred for clinical trials at [facility]. He received 1st clinical trial treatment just about a week ago. Patient now came into the hospital with increasing shortness of breath along with hemoptysis. He denies any fevers and chills. CTA chest was performed that showed no evidence of pulmonary embolism but worsening lung and liver masses. There was pneumonia involving the right middle lobe lingula and the lower lobes. He was started on antibiotic treatment. He denies any further hemoptysis. No other new complaints other than just tiredness and fatigue. Review of Systems - Review of Systems All systems reviewed & are unremarkable except as noted in HPI and bel - Neurologic Reports system reviewed and no additional complaints, except as documented, Reports weakness, Denies abnormal speech, Denies abnormal gait, Denies confusion, Denies headache(s), Denies focal weakness, Denies loss of vision, Denies numbness, Denies other visual disturbances, Denies sensory deficit [facility] Medical History: Medical History (Last Updated 08/01/21 @ 00:40 by Felecia Kent DO) Anemia of chronic disease CAD (coronary artery disease) Congestive heart failure DM2 (diabetes mellitus, type 2) Hyperlipidemia Non-small cell carcinoma of left lung, stage 4 Surgical History: Surgical History (Last Updated 08/01/21 @ 08:27 by Felecia Kent DO) H/O four vessel coronary artery bypass graft Onset Date: ~1984 H/O right knee surgery History of surgery on upper extremity Hx of cholecystectomy Status post cataract extraction of both eyes with insertion of intraocular lens Family History: Family History (Last Reviewed 08/01/21 @ 08:27 by Felecia Kent DO) Father Hypertension Sibling Hypertension Diabetes mellitus Mother Cerebrovascular accident - Social History Social History: Social History (Last Updated 08/01/21 @ 08:29 by Felecia Kent DO) Gender Identity: Gender identity (if verbalized by the patient): Male Sexual Orientation: Sexual Orientation (if Verbalized by the Patient): Straight or Heterosexual Alcohol Use: Alcohol intake: former Substance Use: Substance use: never Others: Spiritual care concerns: No Smoking Status: Smoking status: Current every day smoker Tobacco type: cigarettes Smokeless tobacco user: chewing tobacco Smoking Pack-years: Smoking cigarettes per day: 2 Years smoked: 60 Smoking pack-years: 6.00 Comments: Additional smoking assessment comments: He smokes a couple of cigarettes a day. Chews 1/3 can a day. Meds Home Medications Medication Instructions Recorded Confirmed Type aspirin [Aspir-81] 81 mg PO DAILY 06/16/19 08/01/21 History atorvastatin 80 mg PO HS 06/16/19 08/01/21 History furosemide 40 mg PO DAILY 06/16/19 08/01/21 History glimepiride 1 mg PO HS 06/16/19 08/01/21 History metformin 1,000 mg PO BID 06/16/19 08/01/21 History nitroglycerin 0.4 mg SUBLINGUAL DIRECTED PRN 06/16/19 08/01/21 History potassium chloride 20 meq PO BID 06/16/19 08/01/21 History trazodone 100 mg PO HS 06/16/19 08/01/21 History ferrous sulfate 325 mg PO DAILY 04/11/20 08/01/21 History magnesium oxide 500 mg PO DAILY 04/11/20 08/01/21 History lisinopril 2.5 mg PO DAILY 08/01/21 08/01/21 History metoprolol tartrate 50 mg PO DAILY 08/01/21 08/01/21 History Allergies Allergy/AdvRea
--- NOTE | 2021-08-04 13:31 | PM.PNPUL ---
Progress Note: A&P Assessment and Plan (1) Lung cancer: Qualifiers: Laterality: unspecified laterality Lung location: unspecified part of lung Qualified Code(s): C34.90 - Malignant neoplasm of unspecified part of unspecified bronchus or lung Code(s): C34.90 - Malignant neoplasm of unspecified part of unspecified bronchus or lung Status: Acute Assessment and Plan: 08/03 76 year old unfortunate man with terminal non-small cell lung metastatic cancer, with known metastasis to liver, multiple lung nodules increasing in size over the last 2 months, marked hilar and mediastinal lymphadenopathy, and a right lower lobe mass previously invading diaphragm on a PET scan with worsening on latest chest imaging studies, currently receiving chemotherapy at a local cancer center. He presented with hemoptysis, hypoxemia and atrial fibrillation. Chest CT in addition to his lung cancer showed new infiltrates/consolidation at bases bilaterally which could be due to pneumonia. It is unclear whether the patient's hemoptysis is related to pneumonia or to lung cancer with possible invasion of vascular structures. At this point his hemoptysis does not appear to be life threatening. If hemoptysis is related to invasion of vascular structures than he is at risk to develop massive hemoptysis. He feels better and has less hemoptysis on antibiotics, vancomycin, cefepime and Zithromax for pneumonia. Lovenox was stopped.LE venous study of the lower extremities negative for DVT. Patient is a candidate for hospice care unless his oncologist has a different opinion. His oncologist will be the best resource for prognosis and possible hospice recommendation. 08/04 Patient is seen by Oncology and recommended to follow up with his clinical care team at site [facility] as he is in a research protocol. (2) Hemoptysis: Code(s): R04.2 - Hemoptysis Status: Acute Assessment and Plan: 08/03 Improved. 08/04 Today the patient tells me he has had no hemoptysis. (3) Pneumonia: Qualifiers: Pneumonia type: due to unspecified organism Laterality: bilateral Lung location: unspecified part of lung Qualified Code(s): J18.9 - Pneumonia, unspecified organism Code(s): J18.9 - Pneumonia, unspecified organism Status: Acute Assessment and Plan: 08/03 New infiltrates, on antibiotics, cefepine and vanco. Coag neg staph in blood culture Dec 2, possible contaminant. 08/04 Patient is afebrile white count is 13.6, improved cough and phlegm production and no hemoptysis. Patient is responding to vancomycin and cefepime Which I would continue while he is in-house. When ready for discharge would place him on cefdinir 300 mg p.o. q.12 hours and levaqquin 750 mg PO Q day to complete total 10 days antibiotics (through 08/09). he will need a home O2 assessment prior to discharge. Discussed with Dr. Velasquez. Will sign off. Call with questions. (4) Atrial fibrillation with rapid ventricular response: Code(s): I48.91 - Unspecified atrial fibrillation Status: Acute Assessment and Plan: Diltiazem drip started, then converted to NSR on sotolol. Followed by Cardiology. Subjective Date/time seen: 08/04/21 13:31 Interval history: 08/03 Hao Call is 76-year-old, admitted with 2 day history of increasing shortness of breath and hemoptysis. The patient has a known history of metastatic lung cancer. He has had little hemoptysis, and his shortness of breath is improved. His is at the bedside. He looks so much better than he did initially. Dr Dc has treated him until recently when he enrolled in a trial through [facility]. 08/04 Patient stat
[2021-08-04 13:41] LABS: Glucose Point of Care 145 mg/dl (65-105)
--- NOTE | 2021-08-04 14:04 | PM.IMPN ---
Progress Note: A&P Assessment and Plan (1) Atrial fibrillation with rapid ventricular response: Code(s): I48.91 - Unspecified atrial fibrillation Status: Acute (2) Acute respiratory failure with hypoxia: Code(s): J96.01 - Acute respiratory failure with hypoxia Status: Acute (3) Pneumonia: Qualifiers: Laterality: unspecified laterality Lung location: unspecified part of lung Pneumonia type: due to unspecified organism Qualified Code(s): J18.9 - Pneumonia, unspecified organism Code(s): J18.9 - Pneumonia, unspecified organism Status: Acute (4) Lung cancer: Qualifiers: Laterality: unspecified laterality Lung location: unspecified part of lung Qualified Code(s): C34.90 - Malignant neoplasm of unspecified part of unspecified bronchus or lung Code(s): C34.90 - Malignant neoplasm of unspecified part of unspecified bronchus or lung Status: Acute (5) DM2 (diabetes mellitus, type 2): Qualifiers: Diabetes mellitus liquor blender insulin use: without liquor blender use Diabetes mellitus complication status: without complication Qualified Code(s): E11.9 - Type 2 diabetes mellitus without complications Code(s): E11.9 - Type 2 diabetes mellitus without complications Status: Chronic (6) Congestive heart failure: Qualifiers: Heart failure type: unspecified Heart failure chronicity: chronic Qualified Code(s): I50.9 - Heart failure, unspecified Code(s): I50.9 - Heart failure, unspecified Status: Chronic Additional Plan # acute hypoxic respiratory failure CTA negative for PE but noted bilateral pneumonia. Started on vancomycin and cefepime. Blood culture no growth so far. Nebs treatment as ordered Sputum culture with the growth of normal oropharyngeal qi. Continue on vancomycin cefepime while inpatient Pulmonary recommends switching to cefdinir and Levaquin at discharge. # Lower extremity edema given a dose of Lasix 08/03/2021. Venous Doppler is negative for DVT will re-dose 1 today. Next Lasix 40 mg p.o. daily at home # hemoptysis mild to moderate will consult Pulmonary. Discussed with Pulmonary. Hemoptysis has resolved Lovenox on hold # chronic COPD not on oxygen at home needs home O2 evaluation at discharge # coronary artery disease status post CABG 1984 # atrial fibrillation with rapid ventricular rate on Cardizem drip. Cardiology has been consulted from the ER. Not a candidate for anticoagulation due to hemoptysis started on sotalol by a Cardiology heart rate is improved QT interval adequate of the start of sotalol # diabetes mellitus type 2 on oral hypoglycemic agent at home. SSI added here. Blood sugar at goal # hyperlipidemia # hypertension: Stable # stage IV metastatic lung cancer currently on chemotherapy regimen follows up with [facility] on experimental drug. Oncology was consulted and discussed hospice care. He will follow-up with his regular oncologist at [facility] upon discharge for further discussion # bacteremia with coag-negative staph likely a contamination also on vancomycin already. Second set still negative # DVT prophylaxis SCDs pharmacologic anticoagulation discontinued due to hemoptysis # code status discussed his chronic illness and advanced cancer brought up discussion of hospice care. Discussed code status as well he states that he does not want to be on life support however wants to be attempted on with resuscitative measures. He also states he has power admitted attorneys which is his who is at bedside during the discussion # disposition await improve will of his lower extremity edema, home oxygen evaluation in a.m. anticipate discharge in 1-2 days Subjective Date/time seen: 08/04/21 14:04 Interval history: HPI:76-year-old male with a past medical history of coronary artery disease status post CABG, CHF stage IV non-small cell lung cancer, and COPD who presented to the ER with incre
[2021-08-04] MEDS: FUROSEMIDE INJ 40 MG/4 ML VIAL IV PUSH (16:14)
[2021-08-04 18:06] LABS: Glucose Point of Care 128 mg/dl (65-105)
[2021-08-04 19:01] LABS: Iron 57 ug/dL (49-181)
[2021-08-04 19:12] LABS: Percent Iron Saturation 22 % (20-50)
[2021-08-04 19:17] LABS: Folic Acid 6.1 ng/mL (2.76->20); Vitamin B12 > 1000.0 pg/mL (239-931)
[2021-08-04 20:19] LABS: Glucose Point of Care 141 mg/dl (65-105)
[2021-08-04] MEDS: traZODone HCL 50 MG TABLET 100 MG PO (21:00)
[2021-08-04] MEDS: ATORVASTATIN 40 MG TABLET 80 MG PO (21:00)
[2021-08-05] VITALS (26 sets, daily range): BP systolic 110–139; BP diastolic 43–55; PULSE 70–94; RESP 18–28; TEMP 36.1–36.8; O2SAT 85–97
[2021-08-05] MEDS: traMADol HCL (*CRX) 50 MG TABLET PO ×2 (00:32→18:04)
[2021-08-05] MEDS: IPRATROPIUM BR 0.02% INH SOLN 0.5 MG/2.5 ML VIAL INHALATION ×4 (02:20→21:15)
[2021-08-05] MEDS: SOTALOL HCL 80 MG TABLET PO ×2 (06:09→17:28)
[2021-08-05] MEDS: CEFEPIME 2 GM in DEXTROSE 5% IN WATER 50 ML IVPB ×2 (08:57→17:31)
[2021-08-05] MEDS: POTASSIUM CHLORIDE 10 MEQ TABLET.ER 20 MEQ PO ×2 (08:59→17:28)
[2021-08-05] MEDS: lisinopriL 2.5 MG TABLET PO (09:00)
[2021-08-05] MEDS: FERROUS SULFATE 324 MG TABLET PO (09:00)
[2021-08-05] MEDS: MAGNESIUM OXIDE 400 MG TABLET PO ×2 (09:00→12:44)
[2021-08-05] MEDS: FUROSEMIDE 40 MG TABLET PO (09:00)
--- NOTE | 2021-08-05 09:19 | PM.PNCARD ---
Progress Note: A&P Assessment and Plan (1) Atrial fibrillation with rapid ventricular response: Code(s): I48.91 - Unspecified atrial fibrillation Status: Acute Assessment and Plan: Converted to sinus rhythm on sotalol. Continue 12 lead EKG for dosing to monitor QT corrected interval. QT interval without evidence of toxicity at 369 milliseconds. Monitor electrolytes closely. Magnesium 1.6 today - supplementation ordered. Sotalol loading complete at this point. Not on anticoagulation due to hemoptysis. Ideally would recommend given risk factors, however given presenting problem of hemoptysis will not initiate anticoagulation at this time. (2) Hemoptysis: Code(s): R04.2 - Hemoptysis Status: Acute Assessment and Plan: Resolved as he reports thus far. Appreciate pulmonology involvement and recommendations. (3) Encounter for monitoring sotalol therapy: Code(s): Z51.81 - Encounter for therapeutic drug level monitoring; Z79.899 - Other termite control technician (current) drug therapy Status: Acute Assessment and Plan: As above. QT stable. Continue sotalol 80 mg q.12 hours. (4) CAD (coronary artery disease): Code(s): I25.10 - Atherosclerotic heart disease of [place] coronary artery without angina pectoris Status: Chronic Assessment and Plan: No anginal symptoms. Stable. Continue medical therapy atorvastatin. Off antiplatelet therapy due to hemoptysis. (5) Pneumonia: Qualifiers: Laterality: bilateral Lung location: unspecified part of lung Pneumonia type: due to unspecified organism Qualified Code(s): J18.9 - Pneumonia, unspecified organism Code(s): J18.9 - Pneumonia, unspecified organism Status: Acute Assessment and Plan: Continue IV antibiotics, respiratory support. (6) Acute respiratory failure with hypoxia: Code(s): J96.01 - Acute respiratory failure with hypoxia Status: Acute Assessment and Plan: Improving. Management per primary service. Remains on oxygen supplementation. Subjective Date/time seen: 08/05/21 09:19 Interval history: Follow-up for atrial fibrillation, sotalol load, CAD Patient states he is doing about the same. Denies recurrent hemoptysis. No chest pain palpitations. Maintaining sinus rhythm. QT interval stable on sotalol. Patient complains of fatigue, shortness of breath with any activity. Date of service 08/04/21: Feels about the same today. He does have some shortness of breath is baseline for him. No chest pain, palpitations. Maintaining sinus rhythm on sotalol-QTc stable to today. Date of service 08/05/21: No acute events overnight. No complaints this morning. Remains in sinus rhythm on sotalol. Review of Systems Review of Systems: All systems reviewed & are unremarkable except as noted in HPI and below Constitutional: Constitutional: Reports as per HPI and Reports weakness Eyes: Eyes: Reports as per HPI and Reports no additional eye complaints ENT: Reports system reviewed and no additional complaints, except as documented and Reports as per HPI Cardiovascular: Cardiovascular: Reports as per HPI, Reports no additional cardiovascular complaints and Reports dyspnea Respiratory: Respiratory: Reports as per HPI, Reports hemoptysis and Reports dyspnea Gastrointestinal: Gastrointestinal: Reports as per HPI and Reports no additional gastrointestinal complaints Musculoskeletal: Musculoskeletal: Reports no additional musculoskeletal complaints and Reports as per HPI Neurologic: Reports system reviewed and no additional complaints, except as documented, Reports as per HPI and Reports weakness Psychiatric: Psychiatric: Reports no additional psychiatric complaints and Reports as per HPI Endocrine: Endocrine: Reports no additional endocrine complaints and Reports as per HPI Hematologic/Lymphatic: Hematologic/Lymphatic: Reports no additional hematologic/lymphatic complaints and Reports
[2021-08-05 09:35] LABS: Anion Gap 5 mmol/L (8-16); Blood Urea Nitrogen 22 mg/dL (9-20); Calcium 8.8 mg/dL (8.4-10.2); Carbon Dioxide 33 mmol/L (22-30); Chloride 98 mmol/L (98-107); Estimated CRCL calculation 55 ml/min; Estimated Glomerular Filt Rate > 60; Glucose 166 mg/dL (65-110); Magnesium 1.6 mg/dL (1.6-2.3); Potassium 3.8 mmol/L (3.4-5.0); Sodium 136 mmol/L (137-145)
[2021-08-05 09:36] LABS: Basophils Absolute Auto 0.1 K/mm3 (0.0-0.1); Basophils Percent Auto 1.1 % (0.2-1.2); Eosinophils Absolute Auto 0.5 K/mm3 (0-0.3); Eosinophils Percent Auto 3.9 % (0-4.4); Hematocrit 26.5 % (42.0-52.0); Hemoglobin 8.6 g/dL (14.0-18.0); Immature Granulocyte Absolute 0.12 K/mm3 (0.00-0.031); Immature Granulocyte Percent A 0.9 % (0-0.5); Immature Platelet Fraction Pct 17.1 % (0.9-11.2); Lymphocytes Absolute Auto 0.71 K/mm3 (0.9-3.2); Lymphocytes Percent Auto 5.4 % (18.3-44.2); Mean Corpuscular HGB Conc 32.5 g/dl (32-36); Mean Corpuscular Hemoglobin 27.5 pg (26-34); Mean Corpuscular Volume 84.7 fl (80-100); Mean Platelet Volume 12.7 fl (7.4-10.4); Monocytes Absolute Auto 1.2 K/mm3 (0.1-0.6); Monocytes Percent Auto 8.9 % (2.6-8.5); Neutrophils Absolute Auto 10.5 K/mm3 (1.3-6.7); Neutrophils Percent Auto 79.8 % (45.5-73.1); Platelet Count Result 129 k/mm3 (150-375); Red Blood Count 3.13 M/mm3 (4.6-6.20); Red Cell Distribution Width 14.8 % (11.5-14.5); White Blood Count 13.2 K/mm3 (4.5-10.0)
[2021-08-05 10:15] LABS: Vancomycin Trough 28.4 ug/mL (10.0-20.0)
--- NOTE | 2021-08-05 11:19 | ECG_ITS ---
Measurements Intervals [place] Rate: 73 P: 66 [place]: 131 QRS: 60 QRSD: 81 T: 43 QT: 333 QTc: 369 Interpretive Statements SINUS RHYTHM NONSPECIFIC T-WAVE ABNORMALITY- INF/HIGH LAT LEADS BASELINE ARTIFACT- I, II, AVL, V3-V6 BORDERLINE ECG Electronically Signed On 08-05-2021 13:47:42 PROFILE SAW SETUP OPERATOR by Avinash Worthy D.O.
[2021-08-05 11:50] LABS: Glucose Point of Care 156 mg/dl (65-105)
[2021-08-05 11:50] LABS: Glucose Point of Care 122 mg/dl (65-105)
--- NOTE | 2021-08-05 14:24 | PM.IMPN ---
Progress Note: A&P Assessment and Plan (1) Atrial fibrillation with rapid ventricular response: Code(s): I48.91 - Unspecified atrial fibrillation Status: Acute Assessment and Plan: On sotalol seen by cardiology af more stable (2) Acute respiratory failure with hypoxia: Code(s): J96.01 - Acute respiratory failure with hypoxia Status: Acute Assessment and Plan: Continue iv vancomycin and Iv cefepime today rpt cXr milka and dc milka with oxygen (3) Pneumonia: Qualifiers: Laterality: unspecified laterality Lung location: unspecified part of lung Pneumonia type: due to unspecified organism Qualified Code(s): J18.9 - Pneumonia, unspecified organism Code(s): J18.9 - Pneumonia, unspecified organism Status: Acute (4) Lung cancer: Qualifiers: Laterality: unspecified laterality Lung location: unspecified part of lung Qualified Code(s): C34.90 - Malignant neoplasm of unspecified part of unspecified bronchus or lung Code(s): C34.90 - Malignant neoplasm of unspecified part of unspecified bronchus or lung Status: Acute (5) DM2 (diabetes mellitus, type 2): Qualifiers: Diabetes mellitus buttermaker helper insulin use: without buttermaker helper use Diabetes mellitus complication status: without complication Qualified Code(s): E11.9 - Type 2 diabetes mellitus without complications Code(s): E11.9 - Type 2 diabetes mellitus without complications Status: Chronic (6) Congestive heart failure: Qualifiers: Heart failure type: unspecified Heart failure chronicity: chronic Qualified Code(s): I50.9 - Heart failure, unspecified Code(s): I50.9 - Heart failure, unspecified Status: Chronic Additional Plan # acute hypoxic respiratory failure CTA negative for PE but noted bilateral pneumonia. Started on vancomycin and cefepime. Blood culture no growth so far. Nebs treatment as ordered Sputum culture with the growth of normal oropharyngeal qi. Continue on vancomycin cefepime while inpatient Pulmonary recommends switching to cefdinir and Levaquin at discharge. # Lower extremity edema given a dose of Lasix 08/03/2021. Venous Doppler is negative for DVT will re-dose 1 today. Next Lasix 40 mg p.o. daily at home # hemoptysis mild to moderate will consult Pulmonary. Discussed with Pulmonary. Hemoptysis has resolved Lovenox on hold # chronic COPD not on oxygen at home needs home O2 evaluation at discharge # coronary artery disease status post CABG 1984 # atrial fibrillation with rapid ventricular rate on Cardizem drip. Cardiology has been consulted from the ER. Not a candidate for anticoagulation due to hemoptysis started on sotalol by a Cardiology heart rate is improved QT interval adequate of the start of sotalol # diabetes mellitus type 2 on oral hypoglycemic agent at home. SSI added here. Blood sugar at goal # hyperlipidemia # hypertension: Stable # stage IV metastatic lung cancer currently on chemotherapy regimen follows up with [facility] on experimental drug. Oncology was consulted and discussed hospice care. He will follow-up with his regular oncologist at [facility] upon discharge for further discussion # bacteremia with coag-negative staph likely a contamination also on vancomycin already. Second set still negative # DVT prophylaxis SCDs pharmacologic anticoagulation discontinued due to hemoptysis # code status discussed his chronic illness and advanced cancer brought up discussion of hospice care. Discussed code status as well he states that he does not want to be on life support however wants to be attempted on with resuscitative measures. He also states he has power wet end operator which is his who is at bedside during the discussion Subjective Date/time seen: 08/05/21 14:24 Interval history: HPI:76-year-old male with a past medical history of coronary artery disease status post CABG, CHF stage IV non-small
[2021-08-05] MEDS: METOCLOPRAMIDE HCL INJ 10 MG/2 ML VIAL 5 MG IV PUSH (15:13)
--- NOTE | 2021-08-05 15:42 | HOMEO2EVAL ---
Evaluation was performed at [facility] Home Oxygen Evaluation RC: Home Oxygen (O2) Evaluation Start: 08/05/21 11:54 Freq: ONCE Status: Active Protocol: RPE Activity Type Activity Date Activity User E-Sign Co-Sign Detail Recorded Client Recorded Date Recorded By Document 08/05/21 14:45 [email or web address] [email or web address] 08/05/21 15:42 MCKENZIE Document 08/05/21 14:46 MCKENZIE [email or web address] 08/05/21 15:42 MCKENZIE Document 08/05/21 14:48 MCKENZIE [email or web address] 08/05/21 15:42 MCKENZIE Document 08/05/21 14:49 MCKENZIE [email or web address] 08/05/21 15:42 MCKENZIE Document 08/05/21 14:55 MCKENZIE [email or web address] 08/05/21 15:42 MCKENZIE 08/05/21 08/05/21 08/05/21 14:45 14:46 14:48 Home O2 Evaluation Test Phase Resting Resting Exercise Oxygen Delivery Room Air Nasal Cannula Nasal Cannula Oxygen Flow Rate (L/min) 2 2 Pulse Oximetry (90-100 %) 85 L 93 87 L Home Oxygen Evaluation Comments Treatment Charges O2 Evaluation - Inpatient 08/05/21 08/05/21 14:49 14:55 Home O2 Evaluation Test Phase Exercise Resting Oxygen Delivery Nasal Cannula Nasal Cannula Oxygen Flow Rate (L/min) 3 2 Pulse Oximetry (90-100 %) 90 93 Home Oxygen Evaluation Comments Pt requires 2 L at rest and 3 L with activity Treatment Charges
[2021-08-05 17:56] LABS: Glucose Point of Care 192 mg/dl (65-105)
[2021-08-05 20:24] LABS: Glucose Point of Care 234 mg/dl (65-105)
[2021-08-05] MEDS: traZODone HCL 50 MG TABLET 100 MG PO (21:01)
[2021-08-05] MEDS: ATORVASTATIN 40 MG TABLET 80 MG PO (21:01)
[2021-08-06] VITALS (15 sets, daily range): BP systolic 100–135; BP diastolic 46–61; PULSE 71–83; RESP 16–20; TEMP 36.4–37.1; O2SAT 91–98
[2021-08-06] MEDS: CEFEPIME 2 GM in DEXTROSE 5% IN WATER 50 ML IVPB ×4 (00:05→23:26)
[2021-08-06] MEDS: IPRATROPIUM BR 0.02% INH SOLN 0.5 MG/2.5 ML VIAL INHALATION ×4 (01:47→20:53)
[2021-08-06] MEDS: SOTALOL HCL 80 MG TABLET PO ×2 (05:22→17:00)
[2021-08-06] MEDS: INSULIN ASPART (*BKC) 100 UNITS/ML SUB-Q (08:53)
[2021-08-06] MEDS: POTASSIUM CHLORIDE 10 MEQ TABLET.ER 20 MEQ PO ×2 (08:54→17:00)
[2021-08-06] MEDS: FERROUS SULFATE 324 MG TABLET PO (08:55)
[2021-08-06] MEDS: FUROSEMIDE 40 MG TABLET PO ×2 (08:55→17:00)
[2021-08-06] MEDS: lisinopriL 2.5 MG TABLET PO (08:55)
[2021-08-06] MEDS: MAGNESIUM OXIDE 400 MG TABLET PO (08:55)
[2021-08-06 09:09] LABS: Glucose Point of Care 210 mg/dl (65-105)
[2021-08-06] MEDS: METOCLOPRAMIDE HCL INJ 10 MG/2 ML VIAL 5 MG IV PUSH (10:38)
[2021-08-06] MEDS: traMADol HCL (*CRX) 50 MG TABLET PO (10:38)
--- NOTE | 2021-08-06 10:47 | PM.PNCARD ---
Progress Note: A&P Assessment and Plan (1) Atrial fibrillation with rapid ventricular response: Code(s): I48.91 - Unspecified atrial fibrillation Status: Acute Assessment and Plan: Converted to sinus rhythm on sotalol. Continue 12 lead EKG for dosing to monitor QT corrected interval. QT interval without evidence of toxicity at 369 milliseconds. Monitor electrolytes closely. Sotalol loading complete at this point. Not on anticoagulation due to hemoptysis. Ideally would recommend given risk factors, however given presenting problem of hemoptysis will not initiate anticoagulation at this time. (2) Hemoptysis: Code(s): R04.2 - Hemoptysis Status: Acute Assessment and Plan: Resolved as he reports thus far. Appreciate pulmonology involvement and recommendations. (3) Encounter for monitoring sotalol therapy: Code(s): Z51.81 - Encounter for therapeutic drug level monitoring; Z79.899 - Other terminal gauger (current) drug therapy Status: Acute Assessment and Plan: As above. QT stable. Continue sotalol 80 mg q.12 hours. Okay for discharge from cardiac perspective. 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 Watkins (4) CAD (coronary artery disease): Code(s): I25.10 - Atherosclerotic heart disease of [place] coronary artery without angina pectoris Status: Chronic Assessment and Plan: No anginal symptoms. Stable. Continue medical therapy atorvastatin. Off antiplatelet therapy due to hemoptysis. (5) Pneumonia: Qualifiers: Pneumonia type: due to unspecified organism Laterality: bilateral Lung location: unspecified part of lung Qualified Code(s): J18.9 - Pneumonia, unspecified organism Code(s): J18.9 - Pneumonia, unspecified organism Status: Acute Assessment and Plan: Continue IV antibiotics, respiratory support. (6) Acute respiratory failure with hypoxia: Code(s): J96.01 - Acute respiratory failure with hypoxia Status: Acute Assessment and Plan: Improving. Management per primary service. Remains on oxygen supplementation. Subjective Date/time seen: 08/06/21 10:47 Interval history: Follow-up for atrial fibrillation, sotalol load, CAD Patient states he is doing about the same. Denies recurrent hemoptysis. No chest pain palpitations. Maintaining sinus rhythm. QT interval stable on sotalol. Patient complains of fatigue, shortness of breath with any activity. Date of service 08/04/21: Feels about the same today. He does have some shortness of breath is baseline for him. No chest pain, palpitations. Maintaining sinus rhythm on sotalol-QTc stable to today. Date of service 08/06/21: No acute events overnight. No chest pain or shortness of breath. Review of Systems Review of Systems: All systems reviewed & are unremarkable except as noted in HPI and below Constitutional: Constitutional: Reports as per HPI and Reports weakness Eyes: Eyes: Reports as per HPI and Reports no additional eye complaints ENT: Reports system reviewed and no additional complaints, except as documented and Reports as per HPI Cardiovascular: Cardiovascular: Reports as per HPI, Reports no additional cardiovascular complaints and Reports dyspnea Respiratory: Respiratory: Reports as per HPI, Reports hemoptysis and Reports dyspnea Gastrointestinal: Gastrointestinal: Reports as per HPI and Reports no additional gastrointestinal complaints Musculoskeletal: Musculoskeletal: Reports no additional musculoskeletal complaints and Reports as per HPI Neurologic: Reports system reviewed and no additional complaints, except as documented, Reports as per HPI and Reports weakness Psychiatric: Psychiatric: Reports no additional psychiatric complaints and Reports as per HPI Endocrine: Endocrine: Reports no additional endocrine complaints and Reports as per HPI Hematologic/Lymphatic: Hematologic/Lymphatic: Reports no additional hematologic/lymphatic
--- NOTE | 2021-08-06 12:30 | PM.IMPN ---
Progress Note: A&P Assessment and Plan (1) Atrial fibrillation with rapid ventricular response: Code(s): I48.91 - Unspecified atrial fibrillation Status: Acute Assessment and Plan: On sotalol seen by cardiology af more stable (2) Acute respiratory failure with hypoxia: Code(s): J96.01 - Acute respiratory failure with hypoxia Status: Acute Assessment and Plan: Pt is oxygen 2 liters at rest and 3 liters on activity Continue iv vancomycin and Iv cefepime today lungs sound wheezy and prn nebulisers (3) Pneumonia: Qualifiers: Laterality: unspecified laterality Lung location: unspecified part of lung Pneumonia type: due to unspecified organism Qualified Code(s): J18.9 - Pneumonia, unspecified organism Code(s): J18.9 - Pneumonia, unspecified organism Status: Acute Assessment and Plan: CTA negative for PE but noted bilateral pneumonia. Continue iv vancomycin and Iv cefepime. BC is negative sputum culture is negative CXR 1. Airspace opacities in the lower lung zones with worsening on the right, consistent with pneumonia. 2. Worsened small right pleural effusion. 3. Scattered pulmonary nodules, consistent with metastatic disease. 4. Emphysema. Pulmonary recommends switching to cefdinir and Levaquin at discharge. (4) Lung cancer: Qualifiers: Laterality: unspecified laterality Lung location: unspecified part of lung Qualified Code(s): C34.90 - Malignant neoplasm of unspecified part of unspecified bronchus or lung Code(s): C34.90 - Malignant neoplasm of unspecified part of unspecified bronchus or lung Status: Chronic Assessment and Plan: Pt follows with [facility] oncology receiving chemotheraphy there. Pt is on experimental drug. Oncology was consulted and discussed hospice care. He will follow-up with his regular oncologist at [facility] upon discharge. requesting his admission notes to go to [facility]. (5) DM2 (diabetes mellitus, type 2): Qualifiers: Diabetes mellitus intermediate project manager insulin use: without longterm use Diabetes mellitus complication status: without complication Qualified Code(s): E11.9 - Type 2 diabetes mellitus without complications Code(s): E11.9 - Type 2 diabetes mellitus without complications Status: Chronic Assessment and Plan: AccuCheck, SSI hypoglycemic protocol. Diabetes mellitus type 2 on oral hypoglycemic agent at home. (6) Congestive heart failure: Qualifiers: Heart failure type: unspecified Heart failure chronicity: chronic Qualified Code(s): I50.9 - Heart failure, unspecified Code(s): I50.9 - Heart failure, unspecified Status: Chronic Assessment and Plan: Coronary artery disease status post CABG 1984 (7) Anemia: Code(s): D64.9 - Anemia, unspecified Status: Acute Assessment and Plan: Hb is 8.6, continue to monitor. Additional Plan # DVT prophylaxis SCDs pharmacologic anticoagulation discontinued due to hemoptysis # code status discussed his chronic illness and advanced cancer brought up discussion of hospice care. Pt wants to remain full code Subjective Date/time seen: 08/06/21 12:30 Interval history: HPI:76-year-old male with a past medical history of coronary artery disease status post CABG, CHF stage IV non-small cell lung cancer, and COPD who presented to the ER with increased shortness of breath that started today. The patient reported chronically short of breath due to his history of lung cancer and COPD. He still smokes 2 cigarettes a day and chews a 3rd of a can of tobacco a day. However today when he was leaving work he became markedly short of breath. His oxygen saturations dropped into the 70s when he checked them at home. So he in drove himself to the ER. On arrival to the ER the patient was satting 85% on room air. The patient reports that he has a chronic cough but does not think
[2021-08-06] MEDS: DOCUSATE SODIUM 100 MG CAPSULE PO ×2 (12:47→21:54)
[2021-08-06] MEDS: BISACODYL 10 MG SUPPOSITORY RECTAL (12:47)
[2021-08-06] MEDS: polyethylene glycoL 3350 17 GM POWD.PACK PO (12:48)
[2021-08-06 13:40] LABS: Glucose Point of Care 148 mg/dl (65-105)
[2021-08-06] MEDS: LIDOCAINE 5% PATCH 1 PATCH TRANSDERM (15:19)
[2021-08-06 17:57] LABS: Glucose Point of Care 167 mg/dl (65-105)
[2021-08-06 20:44] LABS: Glucose Point of Care 118 mg/dl (65-105)
[2021-08-06] MEDS: ATORVASTATIN 40 MG TABLET 80 MG PO (21:53)
[2021-08-06] MEDS: traZODone HCL 50 MG TABLET 100 MG PO (21:54)
--- NOTE | 2021-08-06 22:15 | PC.NURSE ---
This patient, Hao Call, was transferred to [[facility] ] on 08/06/21 at 2216. Personal belongings sent with patient. Report given to [ Mandeep]. Appropriate documentation sent with patient.
[2021-08-07] VITALS (7 sets, daily range): BP systolic 100; BP diastolic 63; PULSE 72–76; RESP 16; TEMP 35.9; O2SAT 91–95
[2021-08-07] MEDS: IPRATROPIUM BR 0.02% INH SOLN 0.5 MG/2.5 ML VIAL INHALATION ×2 (03:15→08:07)
[2021-08-07] MEDS: SOTALOL HCL 80 MG TABLET PO (05:33)
[2021-08-07 06:54] LABS: Anion Gap 4 mmol/L (8-16); Blood Urea Nitrogen 27 mg/dL (9-20); Calcium 8.8 mg/dL (8.4-10.2); Carbon Dioxide 34 mmol/L (22-30); Chloride 95 mmol/L (98-107); Estimated CRCL calculation 50 ml/min; Estimated Glomerular Filt Rate > 60; Glucose 140 mg/dL (65-110); Potassium 4.2 mmol/L (3.4-5.0); Sodium 133 mmol/L (137-145)
[2021-08-07 07:07] LABS: Hematocrit 25.7 % (42.0-52.0); Hemoglobin 8.4 g/dL (14.0-18.0); Mean Corpuscular HGB Conc 32.7 g/dl (32-36); Mean Corpuscular Hemoglobin 27.5 pg (26-34); Mean Corpuscular Volume 84.3 fl (80-100); Mean Platelet Volume 12.1 fl (7.4-10.4); Platelet Count Result 90 k/mm3 (150-375); Red Blood Count 3.05 M/mm3 (4.6-6.20); White Blood Count 17.2 K/mm3 (4.5-10.0)
[2021-08-07 08:13] LABS: Glucose Point of Care 133 mg/dl (65-105)
--- NOTE | 2021-08-07 08:31 | PCNWS ---
Weekly nutritional screen. Patient is tolerating current diet with adequate intake. No weight loss reported. No nutritional needs at this time.
[2021-08-07] MEDS: CEFEPIME 2 GM in DEXTROSE 5% IN WATER 50 ML IVPB (08:36)
[2021-08-07] MEDS: POTASSIUM CHLORIDE 10 MEQ TABLET.ER 20 MEQ PO (08:37)
[2021-08-07] MEDS: polyethylene glycoL 3350 17 GM POWD.PACK PO (08:37)
[2021-08-07] MEDS: FUROSEMIDE 40 MG TABLET PO (08:37)
[2021-08-07] MEDS: LIDOCAINE 5% PATCH 1 PATCH TRANSDERM (08:37)
[2021-08-07] MEDS: MAGNESIUM OXIDE 400 MG TABLET PO (08:37)
[2021-08-07] MEDS: lisinopriL 2.5 MG TABLET PO (08:38)
[2021-08-07] MEDS: FERROUS SULFATE 324 MG TABLET PO (08:38)
[2021-08-07] MEDS: DOCUSATE SODIUM 100 MG CAPSULE PO (08:38)
[2021-08-07] MEDS: traMADol HCL (*CRX) 50 MG TABLET PO (11:10)
[2021-08-07 11:53] LABS: Glucose Point of Care 152 mg/dl (65-105)
--- NOTE | 2021-08-07 12:00 | PM.DS ---
DS: Admitting Diagnosis Discharge Date 08/07/21 Admitting Diagnosis SOB DS: Discharge Diagnosis Discharge Diagnosis (1) Sepsis: Code(s): A41.9 - Sepsis, unspecified organism Status: Acute Assessment and Plan: patient is a 76-year-old man with stage IV non-small cell lung cancer who is currently undergoing a research study at [facility] [place][Note 2] and unsure if he is getting chemotherapy versus placebo, CAD status post CABG, CHF, COPD, who presented to emergency room with increased shortness of breath prior to arrival. Patient was at work and noticed the shortness of breath, then checked his pulse oximeter and saw that his oxygen saturations were in the 70s. He drove himself to the ER for further evaluation workup. Initial vitals showed stable blood pressure 120/72, tachycardic heart rate 110, increased respiratory rate 22, afebrile, and hypoxic at 85% on room air. Initial labs showed leukocytosis at 20,000, 600, normocytic anemia with a hemoglobin of 8.9, hematocrit 27%. Thrombocytopenia at 127. Elevated neutrophils at 96%. Normal coag panel. ABG showed respiratory alkalosis with hypoxemia. Chest x-ray showed worsening airspace opacities in the lower lung zones, left perihilar region, consistent with atelectasis, scarring versus pneumonia. CTA chest was ordered showing no pulmonary embolism, pneumonia involving the lower lobes, right middle lobe and lingula. Worsened lung nodules, liver masses, and chest lymphadenopathy, consistent with metastatic disease. Patient was admitted into the hospital with sepsis due to his heart rate, hypoxemia, tachypnea, and leukocytosis in the setting of pneumonia. Patient was placed on broad-spectrum antibiotics with IV cefepime and vancomycin for hospital-acquired pneumonia since he is a cancer patient and been to [facility] [place][Note 2] and other facilities around recently. During the patient's admission he was found to go into atrial fibrillation with rapid ventricular response. Cardiology team were consulted and started the patient on sotalol 80 mg q.12 hours and the patient has been in NSR. They monitored his QTC over a few days without any concerning changes. Patient could not be placed on anticoagulation because he developed hemoptysis when started on therapeutic Lovenox. venous Doppler showed negative for DVT. Psychiatry Teacher was consulted due to hemoptysis and it was improving with discontinuation of the anticoagulation. The enterprise analyst recommended antibiotics for total of 10 days, switching to oral cefdinir and Levaquin once discharged. Patient's sputum culture was negative. Patient's blood culture did show 1 positive for coag-negative staph which appears to be a contamination. The patient continued to be on 2 L of oxygen at 95%. Patient states he is feeling much better today than the previous days. Denies any worsening shortness of breath, changes to his cough, fever, chills, or any concerning symptoms. Patients leukocytosis increased today but again the patient is feeling much better. He is afebrile,. I called enterprise analyst who reviewed his chest x-ray from 08/06 who did not feel at this time needed further workup and evaluation. I talked to the patient and his about continuing antibiotics a few more days, home oxygen evaluation shows he needs 2 L at rest and 3 L with exertion. Also cardiology increased his diuretic from Lasix 40 mg daily, to Lasix 40 mg b.i.d.. Patient does still have some slight leg swelling, and he states he does have compression stockings in his back that he did not want to put them on to help with his leg swelling. I told him to keep his legs elevated when sitting down and wears compression stockings at home. Will check labs in 1 week and have him follow his primary care provider as well as his oncologist at [facility] [place][Note 2]. the enterprise analyst and oncologist Dr. Dc who evaluated him here did mention hospice care due to stage IV lung cancer. He is not intereste
--- NOTE | 2021-08-07 12:17 | PM.PNCARD ---
Progress Note: A&P Assessment and Plan (1) Atrial fibrillation with rapid ventricular response: Code(s): I48.91 - Unspecified atrial fibrillation Status: Acute Assessment and Plan: Converted to sinus rhythm on sotalol. He has been stable on current dose of sotalol without any evidence of toxicity. Monitor electrolytes closely. Sotalol loading complete at this point. Not on anticoagulation due to hemoptysis. Ideally would recommend given risk factors, however given presenting problem of hemoptysis will not initiate anticoagulation at this time. (2) Hemoptysis: Code(s): R04.2 - Hemoptysis Status: Acute Assessment and Plan: Resolved as he reports thus far. Appreciate pulmonology involvement and recommendations. (3) Encounter for monitoring sotalol therapy: Code(s): Z51.81 - Encounter for therapeutic drug level monitoring; Z79.899 - Other intermediate (current) drug therapy Status: Acute Assessment and Plan: As above. QT stable. Continue sotalol 80 mg q.12 hours. Okay for discharge from cardiac perspective. 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 (4) CAD (coronary artery disease): Code(s): I25.10 - Atherosclerotic heart disease of [place] coronary artery without angina pectoris Status: Chronic Assessment and Plan: No anginal symptoms. Stable. Continue medical therapy atorvastatin. Off antiplatelet therapy due to hemoptysis. (5) Pneumonia: Qualifiers: Laterality: bilateral Lung location: unspecified part of lung Pneumonia type: due to unspecified organism Qualified Code(s): J18.9 - Pneumonia, unspecified organism Code(s): J18.9 - Pneumonia, unspecified organism Status: Acute Assessment and Plan: Continue IV antibiotics, respiratory support. (6) Acute respiratory failure with hypoxia: Code(s): J96.01 - Acute respiratory failure with hypoxia Status: Acute Assessment and Plan: Improving. Management per primary service. Remains on oxygen supplementation. Subjective Date/time seen: 08/07/21 12:17 Interval history: Follow-up for atrial fibrillation, sotalol load, CAD Patient states he is doing about the same. Denies recurrent hemoptysis. No chest pain palpitations. Maintaining sinus rhythm. QT interval stable on sotalol. Patient complains of fatigue, shortness of breath with any activity. Date of service 08/04/21: Feels about the same today. He does have some shortness of breath is baseline for him. No chest pain, palpitations. Maintaining sinus rhythm on sotalol-QTc stable to today. Date of service 08/06/21: No acute events overnight. No chest pain or shortness of breath. Date of service 08/07/2021: Feeling ok today. No acute events overnight. Denies any palpitations, chest pain, worsening shortness of breath. Swelling is better today. Review of Systems Review of Systems: All systems reviewed & are unremarkable except as noted in HPI and below Constitutional: Constitutional: Reports as per HPI and Reports weakness Eyes: Eyes: Reports as per HPI and Reports no additional eye complaints ENT: Reports system reviewed and no additional complaints, except as documented and Reports as per HPI Cardiovascular: Cardiovascular: Reports as per HPI, Reports no additional cardiovascular complaints and Reports dyspnea Respiratory: Respiratory: Reports as per HPI, Reports hemoptysis and Reports dyspnea Gastrointestinal: Gastrointestinal: Reports as per HPI and Reports no additional gastrointestinal complaints Musculoskeletal: Musculoskeletal: Reports no additional musculoskeletal complaints and Reports as per HPI Neurologic: Reports system reviewed and no additional complaints, except as documented, Reports as per HPI and Reports weakness Psychiatric: Psychiatric: Reports no additional psychiatric complaints and Reports as per HP
--- NOTE | 2021-08-07 15:47 | PCRCNOTE ---
Window of time for administration has passed. See next scheduled administration.
--- OUTSIDE RECORDS SUMMARY | 2021-08-20 09:21 | XMS_ITS | Continuity of Care Document ---
:1945 Author Organization [facility] Care Team Providers Name Role Phone [facility] Unavailable Unavailable Problems Combined list of problems from Department of Defense and Veterans Affairs facilities. It does not include entries that were removed or entered in error. Problem Status Onset Problem Type Date of Comments Source Date Resolution Diabetes Mellitus Active Condition ST . [facility] Type II or [facility] unspecified * [facility] (ICD-9-CM 250.00) Essential Active Condition [facility] Hypertension [facility] (ICD-9-CM 401.9) DIV ISION Gastroesophageal Active Condition . [facility] Reflux Disorder * [facility] (ICD-9-CM 530.81) DI VISION Postsurgical Active Condition [facility] Status (ICD-9-CM DIV ISION V45.81)
== END 2021-08-07 16:16 | disposition home or self-care (01) | DRG 871 ==
LOC: ANHED 22:40 → ANH3MEDSUR 08-01 10:04 → ANH3MED 08-07 01:19 → ANH3MEDSUR 08-20 09:20 → ANHIMU 08-20 09:20
PROVIDERS: Family Medicine; Internal Medicine; Internal Medicine Hematology & Oncology; Nurse Practitioner; Admitting Provider Internal Medicine; Emergency Provider Emergency Medicine; PCP Internal Medicine; Visit Provider Physician Assistant
DX: A41.9 Sepsis, unspecified organism (principal); J18.9 Pneumonia, unspecified organism; J96.01 Acute respiratory failure with hypoxia; J44.0 Chronic obstructive pulmonary disease with (acute) lower respiratory infection; C34.31 Malignant neoplasm of lower lobe, right bronchus or lung; C78.7 Secondary malignant neoplasm of liver and intrahepatic bile duct; R04.2 Hemoptysis; D68.32 Hemorrhagic disorder due to extrinsic circulating anticoagulants; T45.525A Adverse effect of antithrombotic drugs, initial encounter; E11.9 Type 2 diabetes mellitus without complications; I25.10 Atherosclerotic heart disease of native coronary artery without angina pectoris; I50.9 Heart failure, unspecified; D63.8 Anemia in other chronic diseases classified elsewhere; E78.5 Hyperlipidemia, unspecified; I48.91 Unspecified atrial fibrillation; D69.6 Thrombocytopenia, unspecified; F17.220 Nicotine dependence, chewing tobacco, uncomplicated; F17.210 Nicotine dependence, cigarettes, uncomplicated; Z95.1 Presence of aortocoronary bypass graft; Z79.82 Long term (current) use of aspirin; Z90.49 Acquired absence of other specified parts of digestive tract; Z98.42 Cataract extraction status, left eye; Z98.41 Cataract extraction status, right eye
CPT/HCPCS: 36415; 36600; 71045; 71275; 80048; 80053; 80202; 82607; 82728; 82746; 82805; 82948; 83540; 83550; 83605; 83735; 83880; 84484; 85025; 85027; 85055; 85380; 85610; 87040; 87070; 87077; 87186; 87205; 93005; 93306; 93970; 94003; 94618; 94640; 96365; 96366; 96368; 96375; 97161; 97165; 99285; A9270; J0456; J0692; J0696; J1650; J1815; J1885; J1940; J2765; J2930; J3370; J7030; J7040; J7120; Q9967